=== PATIENT | male | born 1955 | race Caucasian/White ===

== ENCOUNTER 2017-05-20 21:16 | Observation (INO) ==
--- NOTE | 2017-05-20 21:32 | Emergency Department Note ---
Disposition Clinical Impression: SVT (supraventricular tachycardia), Acute electrocardiogram changes Disposition: Admitted As Inpatient Condition: Fair Referrals: Bhavana Rodriguez CNP [Primary Care Provider] - Forms: ED Satisfaction Letter Time of Disposition: 22:17 Arrhythmia/Palpitations HPI - General Chief Complaint: ED Arrhythmia/Palpitations Stated Complaint: states high heart rate Time Seen by Provider: 05/20/17 21:21 Source: patient Limitations: no limitations Nursing Notes Reviewed: Yes Vital Signs Reviewed: Yes - History of Present Illness HPI Narrative: 61-year-old who comes in with a rapid heartbeat. Patient states he has a history of SVT and has had this similar episodes about 10 previous times. Patient seen here last week he went for an ablation but they could not advance to the atrium due to its shape. He was started on Rythmol and today developed rapid heartbeat. 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 Duration: constant Severity: moderate Context: occurred during rest Arrhythmia History: SVT Associated symptoms: Reports: other (General weakness) Treatments prior to arrival: vagal maneuvers - Related Data Home Medications Medication Instructions Recorded Confirmed Baclofen 20 mg PO BID 05/08/16 05/10/17 Celecoxib [Celebrex] 200 mg PO BID 05/08/16 05/10/17 Furosemide [Lasix] 20 mg PO DAILY 05/08/16 05/10/17 Metoprolol [Lopressor] 50 mg PO BID 05/08/16 05/10/17 Potassium Chloride [Klor-Con 10 meq PO DAILY 05/08/16 05/10/17 Sprinkle] Pravastatin Sodium [Pravachol] 40 mg PO HS 05/08/16 05/10/17 Sertraline [Zoloft] 50 mg PO BID 05/08/16 05/10/17 Solifenacin Succinate [Vesicare] 5 mg PO DAILY 05/08/16 05/10/17 Tamsulosin [Flomax] 0.4 mg PO DAILY 05/08/16 05/10/17 traMADol [Ultram] 50 - 100 mg PO TID PRN 05/08/16 05/10/17 Previous Rx's Medication Instructions Recorded Propafenone [Rhythmol] 150 mg PO TID #90 tablet 05/13/17 Allergies Allergy/AdvReac Type Severity Reaction Status Date / Time No Known Allergies Allergy Verified 05/10/17 15:24 All systems ED: reviewed and negative except as stated. Constitutional: Denies: fever, chills, weakness, weight change Eyes: Denies: eye pain, eye discharge, vision change ENT ED: Denies: ear pain, throat pain, dental pain, hearing loss, epistaxis, congestion, dysphagia Cardiovascular: Reports: palpitations. Denies: chest pain, dyspnea on exertion , edema, syncope Respiratory: Denies: cough, dyspnea, wheezes, hemoptysis, stridor Gastrointestinal: Denies: abdominal pain, nausea, vomiting, diarrhea, constipation, hematemesis, melena, hematochezia Genitourinary: Denies: urgency, dysuria, frequency, hematuria Musculoskeletal: Denies: back pain, neck pain, arthralgia, myalgia Integumentary: Denies: rash, abrasion, lesions Neurological: Denies: headache, weakness, numbness, paresthesias, confusion, abnormal gait, vertigo Psychiatric: Denies: anxiety, depression, suicidal thoughts, homicidal thoughts , auditory hallucinations, visual hallucinations Endocrine: Denies: fatigue Hematological/Lymphatic: Denies: easy bleeding, easy bruising Allergic/Immunologic: Denies: facial swelling, urticaria Past Medical History - Past Medical History Medical history: Reports: hyperlipidemia, hypertension, SVT, other Surgical history: Reports: orthopedic, other (right shoulder replacement), other Psychiatric history: Reports: depression - Social History Smoking Status: Former smoker Smokeless Tobacco Status: No Alcohol use: Reports: none Drug use: Reports: none Physical Exam - General Limitations: no limitations General appearance: alert, in no apparent distress, appears intoxicated - Head Head exam: atraumatic, normocephalic, normal inspection - Eye Eye exam: Present: normal appearance, PERRL, EOMI - ENT ENT exam: normal exam, normal oropharynx, mucous membranes moist - Neck Neck exam: Present: normal inspection, full ROM, trachea midline - Chest Chest inspection: Present: normal inspection, symmetric chest wall rise - Respiratory Respiratory exam: Present: normal lung sounds bilaterally - Cardiovascular Cardiovascular exam: Present: normal rhythm, tachycardia - Abdominal Exam Abdominal exam: Present: soft, Non-Tender. Absent: tenderness, distention, guarding, rebound, rigidity - Extremities Exam Extremities exam: Present: normal inspection, full ROM. Absent: tenderness, pedal edema - Expanded Lower Extremity Exam Gait: observed and normal - Back Exam Back exam: Present: normal inspection, full ROM. Absent: tenderness - Neurological Exam Neurological exam: Present: alert, oriented X3 - Psychiatric Psychiatric exam: Present: normal affect, normal mood - Skin Skin exam: Present: warm, dry, intact, normal color Course - Reevaluation(s) Reevaluation #1: Patient was given 6 mg of Identicard IV with conversion to normal sinus rhythm. Rate of about 75. Repeat EKG does show T-wave inversion V2 V3 V4 V5 and V6. Patient will be admitted for further evaluation and treatment. Time: 22:16 - Consultations Consultation #1: Discussed with Dr. Davey, admit. Time: 22:22 Vital Signs Temperature 97.7 F 05/20/17 21:16 Pulse Rate 135 05/20/17 21:16 Respiratory Rate 20 05/20/17 21:16 Blood Pressure 91/71 05/20/17 21:16 O2 Sat by Pulse Oximetry 94 05/20/17 21:16 Temperature 97.7 F 05/20/17 21:16 Pulse Rate 75 05/20/17 22:10 Respiratory Rate 20 05/20/17 22:10 Blood Pressure 103/68 05/20/17 22:10 O2 Sat by Pulse Oximetry 96 05/20/17 22:10 Oxygen Delivery Oxygen Delivery Nasal Cannula Arrhythmia/Palpitations - Lab Data Lab results reviewed: Yes I reviewed the patient's lab results. Result diagrams: 05/20/17 22:02 Lab Results 05/20/17 Range/Units 22:02 WBC 13.0 H (4.3-11.1) K/mcL RBC 5.06 (4.19-5.50) M/mcL Hgb 14.8 (12.9-16.9) g/dL Hct 44.8 (37.5-50.1) % MCV 88.5 (83.0-100.0) fL MCH 29.2 (28.0-33.3) pg MCHC 33.0 (31.6-35.5) g/dL RDW 13.2 (11.5-14.5) % Plt Count 283 (140-400) K/mcL MPV 9.6 (9.4-12.4) fL Immature Gran % 0.3 (0-4) % Seg Neutrophils % 64.2 % Lymphocytes % 26.4 % Monocytes % 6.7 % Eosinophils % 1.9 % Basophils % 0.5 % Neutrophils # 8.4 (1.6-8.9) K/mcL Lymphocytes # 3.4 (0.6-4.6) K/mcL Monocytes # 0.9 (0.0-1.3) K/mcL Eosinophils # 0.3 (0.0-0.6) K/mcL Basophils # 0.1 (0.0-0.2) K/mcL - Radiology Data Radiology results reviewed: Yes I reviewed the patient's radiology results. - EKG Data EKG attestation: Yes I reviewed and interpreted this EKG. Rhythm: SVT (Rate of 132) Interpretation: other (SVT)
[2017-05-20] MEDS ORDERED: *HR* Adenosine 6 MG/2 ML VIAL IVP ONE (21:34)
[2017-05-20 22:09] LABS: Basophils % 0.5 %; Eosinophils % 1.9 %; Hematocrit 44.8 % (37.5-50.1); Hemoglobin 14.8 g/dL (12.9-16.9); Immature Granulocytes % 0.3 % (0-4); Lymphocytes % 26.4 %; Mean Corpuscular Hemoglobin 29.2 pg (28.0-33.3); Mean Corpuscular Volume 88.5 fL (83.0-100.0); Mean Platelet Volume 9.6 fL (9.4-12.4); Monocytes % 6.7 %; Platelet Count 283 K/mcL (140-400); Red Blood Count 5.06 M/mcL (4.19-5.50); Red Cell Distribution Width 13.2 % (11.5-14.5); Segmented Neutrophils % 64.2 %
[2017-05-20 22:10] LABS: Basophils # 0.1 K/mcL (0.0-0.2); Eosinophils # 0.3 K/mcL (0.0-0.6); Lymphocytes # 3.4 K/mcL (0.6-4.6); Monocytes # 0.9 K/mcL (0.0-1.3); Neutrophils # 8.4 K/mcL (1.6-8.9)
[2017-05-20 22:17] LABS: INR 1.1
[2017-05-20 22:19] LABS: Activated Partial Thrombo Time 28.6 Seconds (26.0-36.0)
[2017-05-20 22:26] LABS: BUN/Creatinine Ratio 16 (6-26); Blood Urea Nitrogen 15 mg/dL (8-26); Calcium 9.4 mg/dL (8.6-10.8); Carbon Dioxide 22 mEq/L (19-29); Chloride 105 mEq/L (98-109); Glucose 113 mg/dL (70-99); Osmolality,Calculated 286 (280-300); Potassium 3.9 mEq/L (3.5-4.5); Sodium 137 mEq/L (136-145); eGFR For African Americans > 60 (> 60); eGFR For Non-African Americans > 60 (> 60)
[2017-05-20 22:41] LABS: Magnesium 2.1 mg/dL (1.6-2.6)
[2017-05-20 23:06] LABS: Thyroid Stimulating Hormone 2.363 mcIU/mL (0.350-4.840)
[2017-05-21] MEDS ORDERED: traMADol 50 MG TABLET PO ONE (00:58)
[2017-05-21] MEDS ORDERED: Celecoxib 200 MG CAPSULE PO ONE (00:58)
[2017-05-21] MEDS ORDERED: Baclofen 10 MG TABLET PO ONE (00:59)
[2017-05-21] MEDS ORDERED: Naloxone 0.4 MG/ML INJ IVP PRN (03:53)
[2017-05-21] MEDS ORDERED: Acetaminophen 325 MG TABLET PO PRN (03:53)
[2017-05-21] MEDS ORDERED: *HR* Morphine 2 MG/ML SYRINGE IVP PRN (03:53)
[2017-05-21] MEDS ORDERED: Furosemide 20 MG TABLET PO PRN (03:56)
--- NOTE | 2017-05-21 04:02 | Internal Med History&Physical ---
Date of Encounter: 05/21/17 Time of Encounter: 03:15 Assessment and Plan (1) Supraventricular tachycardia Current visit: Yes Status: Acute 1. S/P cardioversion with Adenosine in ER. 2. Continue home meds and Rhythmol as prescribed. 3. Cycle tropopins and EKG's. 4. Patient had ECHO last month, no need to repeat unless indicated. 5. Consult cardiology for guidance. 6. Monitor and correct electrolytes as necessary. (2) HTN (hypertension) Current visit: No Status: Chronic 1. Continue home meds as appropriate. 2. Monitor BP and adjust as necessary. Qualifiers: Hypertension type: essential hypertension Qualified Code(s): I10 - Essential (primary) hypertension (3) DVT prophylaxis Current visit: No Status: Acute 1. Heparin SQ. Internal Medicine - H&P: HPI Chief complaint: palpitations; racing heartbeat Admitted From: Emergency Dept Plans for Post Hospital Care: Home History of present illness: Mr. Monsivais is a 61 year old male who presents to the ER tonight with complaints of palpitations and racing heartbeat. He was found to have evidence of SVT in the ER and was given a dose of adenosine which returned him back to normal sinus rhythm. EKG did show some flipped T waves and ST depression anterolaterally on his precordium. He was therefore admitted to hospitalist service. Upon my assessment of the patient, he is sleeping but easily arousable. He denies any chest pain. He has no shortness of breath. Since the Adenosine, he states he feels back to baseline. Prior to his presentation in the ER, he denies any chest pain or shortness of breath. His only complaint was palpitations and racing heartbeat. Patient states he has a history of abnormal heart rhythm and was started on Rythmol last week. He does not take any blood thinners. He denies any history of atrial fibrillation. Past Med Surg Social Fam HX - Past Medical History Attestation: Yes The following information was validated with the patient. Source: patient, old records reviewed Medical history: hyperlipidemia, hypertension, SVT, other Psychiatric history: depression - Past Surgical History Surgical History: orthopedic, other, other - Social History Smoking Status: Former smoker Smokeless Tobacco Status: No Alcohol use: none Drug use: none Current living situation: Home, With Family Activity Level: Independent ambulation - Family History Mother Hx Family Cardiac Disorders: Yes (heart stents) Hx Family Cancer: Yes (breast cancer) Father Hx Family Cardiac Disorders: Yes Brother Hx Family Cardiac Disorders: Yes Internal Medicine - H&P: Meds Baclofen 20 mg PO BID 05/08/16 [History] Celecoxib [Celebrex] 200 mg PO BID 05/08/16 [History] Furosemide [Lasix] 20 mg PO DAILY PRN 05/08/16 [History] Metoprolol [Lopressor] 50 mg PO BID 05/08/16 [History] Potassium Chloride [Klor-Con Sprinkle] 10 meq PO DAILY PRN 05/08/16 [History] Pravastatin Sodium [Pravachol] 40 mg PO HS 05/08/16 [History] Sertraline [Zoloft] 50 mg PO BID 05/08/16 [History] Solifenacin Succinate [Vesicare] 5 mg PO DAILY 05/08/16 [History] Tamsulosin [Flomax] 0.4 mg PO DAILY 05/08/16 [History] traMADol [Ultram] 50 - 100 mg PO TID PRN 05/08/16 [History] Propafenone [Rhythmol] 150 mg PO TID #90 tablet 05/13/17 [Rx] 3 Allergy/AdvReac Type Severity Reaction Status Date / Time No Known Allergies Allergy Verified 05/10/17 15:24 - Constitutional Constitutional: no chills, no fever(s), no night sweats - EENT Eyes: no blurry vision, no change in vision Ears: no ear pain, no tinnitus Nose, mouth and throat: no nasal congestion, no sinus pressure, no sore throat - Cardiovascular Cardiovascular ROS IM: irregular heart rhythm, palpitations, no chest pain, no diaphoresis, no dyspnea, no dyspnea on exertion, no edema, no paroxysmal nocturnal dyspnea, no syncope - Respiratory Respiratory: no cough, no dyspnea, no hemoptysis, no chest congestion - Gastrointestinal Gastrointestinal: no abdominal pain, no diarrhea, no hematemesis, no hematochezia, no melena, no nausea, no vomiting - Genitourinary Genitourinary ROS male: no dysuria, no flank pain, no hematuria - Musculoskeletal Musculoskeletal ROS IM: arthralgias, back pain - Integumentary Integumentary IM: no rash, no jaundice - Neurological Neurological ROS: no dizziness, no focal weakness, no frequent falls - Psychiatric Psychiatric: no anxiety, no depression - Endocrine Endocrine IM: no polydipsia, no polyuria - Hematologic/Lymphatic Hematologic/Lymphatic: no easy bruising, no lymphadenopathy - Allergic/Immunologic Allergic/Immunologic: no wheezing, no GI upset with certain foods - Constitutional Vitals: Temp Pulse Resp BP Pulse Ox 98 F 68 20 102/72 97 05/21/17 00:09 05/21/17 00:09 05/21/17 00:09 05/21/17 00:09 05/21/17 00:09 General appearance: Present: cooperative, A&O X 3, pleasant, no acute distress, obese - Head Head exam: Present: atraumatic, normal inspection - Expanded Head Exam Head exam expanded: Absent: abrasion, contusion - Eye Eye exam: Present: EOMI, PERRL. Absent: scleral icterus Pupils: Present: normal accommodation - ENT ENT exam: Present: mucous membranes dry, normal exam - Neck Neck exam general surgery: Present: full ROM, supple, trachea midline. Absent: lymphadenopathy, tenderness - Expanded Neck Exam Neck exam: Absent: carotid bruit - Respiratory Respiratory exam: Present: CTAB. Absent: accessory muscle use, chest wall tenderness, rales, respiratory distress, rhonchi, wheezes - Cardiovascular Cardiovascular exam: Present: RRR, +S1, +S2. Absent: diastolic murmur, JVD, systolic murmur - GI/Abdominal GI/Abdominal exam: Present: normal bowel sounds, soft. Absent: guarding, hepatomegaly, mass, rebound, splenomegaly, tenderness - Extremities Exam Extremities exam: Present: full ROM, warm, radial pulses palpable and symmetrical. Absent: calf tenderness, joint swelling, pedal edema, tenderness - Back Exam Back exam: Absent: CVA tenderness (L), CVA tenderness (R) - Neurological Exam Neurological exam: Present: alert, oriented X3, no focal deficits, strengths equal and symetr throughout - Psychiatric Psychiatric exam: Present: normal affect, normal mood - Skin Skin exam: Present: dry, warm. Absent: rash Internal Med - H&P Results - Labs CBC & Chem 7: 05/20/17 22:02 05/20/17 22:02 - EKG Data -: EKG Interpreted by Myself - EKG Data Prior EKG available for review: no EKG comments: 05/21/17 04:05 narrow complex regular tachycardia consistent with SVT; repeat EKG shows NSR with anterolateral ST-T depression and T wave inversion - Diagnostic Studies Chest x-ray Status: image reviewed by me (negative)
[2017-05-21 05:20] LABS: Basophils # 0.1 K/mcL (0.0-0.2); Basophils % 0.4 %; Eosinophils # 0.3 K/mcL (0.0-0.6); Eosinophils % 2.4 %; Hematocrit 41.2 % (37.5-50.1); Hemoglobin 13.8 g/dL (12.9-16.9); Immature Granulocytes % 0.3 % (0-4); Lymphocytes # 2.5 K/mcL (0.6-4.6); Lymphocytes % 21.3 %; Mean Corpuscular HGB Conc 33.5 g/dL (31.6-35.5); Mean Corpuscular Hemoglobin 29.6 pg (28.0-33.3); Mean Corpuscular Volume 88.2 fL (83.0-100.0); Mean Platelet Volume 9.9 fL (9.4-12.4); Monocytes # 0.9 K/mcL (0.0-1.3); Monocytes % 7.4 %; Neutrophils # 7.8 K/mcL (1.6-8.9); Platelet Count 206 K/mcL (140-400); Red Blood Count 4.67 M/mcL (4.19-5.50); Red Cell Distribution Width 13.2 % (11.5-14.5); Segmented Neutrophils % 68.2 %
[2017-05-21 05:30] LABS: Alanine Aminotransferase 18 Units/L (0-55); Albumin 3.3 g/dL (3.5-5.0); Albumin/Globulin Ratio 1.1 (1.1-2.2); Alkaline Phosphatase 97 Units/L (38-126); Aspartate Amino Transferase 14 Units/L (5-34); BUN/Creatinine Ratio 17 (6-26); Bilirubin,Total 0.7 mg/dL (0.2-1.2); Blood Urea Nitrogen 16 mg/dL (8-26); Calcium 8.9 mg/dL (8.6-10.8); Carbon Dioxide 25 mEq/L (19-29); Chloride 106 mEq/L (98-109); Chol/HDL Ratio 4.2 (0-4.9); Cholesterol 130 mg/dL (< 200); Globulin 3.1 g/dL (2.4-3.5); Glucose 93 mg/dL (70-99); HDL Cholesterol 31 mg/dL (40-59); LDL Cholesterol,Calculated 83 mg/dL (0-99); Magnesium 2.1 mg/dL (1.6-2.6); Osmolality,Calculated 289 (280-300); Potassium 3.7 mEq/L (3.5-4.5); Sodium 139 mEq/L (136-145); Total Protein 6.4 g/dL (6.0-8.3); Triglycerides 80 mg/dL (< 150); eGFR For African Americans > 60 (> 60); eGFR For Non-African Americans > 60 (> 60)
[2017-05-21] MEDS: *HR* Heparin 5,000 UNIT/ML VIAL SQ SCH ×3 (05:46→21:50)
[2017-05-21] MEDS: Baclofen 10 MG TABLET PO SCH ×2 (08:34→19:47)
--- NOTE | 2017-05-21 09:26 | Electrophysiology Consult Note ---
<Ferdinand Doe R - Last Filed: 05/21/17 09:30> Date of Encounter: 05/21/17 Time of Encounter: 09:24 Assessment and Plan (1) Supraventricular tachycardia Status: Acute Known hx of SVT--unsuccessful ablation in the past due to not being able to place catheters due to unusual anatomy. Presented to ED in SVT--Converted to sinus rhythm in the ED with Adenosine. Currently on Lopressor 50mg BID and Rythmol 150mg TID. Pt denies any missed Rythmol doses. Rythmol was started on 05/11/17. BMP and electrolytes stable. Echo LVEF 60-65%, moderate LVDD without any wall motion abnormalities, mild MR. Discussed with Dr. César Merino. Increase Rythmol to 225mg TID. Will need daily EKGs to monitor QRS. Baseline EKG 05/20/17 QRS 90ms. Pt also now interested in being evaluated at a tertiary facility to discuss ablation. Will coordinate as outpt. Pt needs monitored for 5 doses of increased Rythmol dosing. Continue to follow. I will discuss all the above with Dr. César Merino and make changes as necessary. (2) Elevated troponin Status: Acute Troponins 0.01, 0.05. Second troponin borderline in setting of SVT, nondiagnostic for ACS. Pt denies chest pain. Inferolateral EKG changes noted. Recommend stress test while inpt. No recent ischemic eval. (3) Acute electrocardiogram changes Status: Acute Inferolateral EKG changes worse from baseline, concerning for ischemia. Pt denies chest pain. No hx of CAD and no recent ischemic eval. Stress test while inpt. Discussion w patient/family: The assessment and plan as outlined above was discussed with the patient and/or family members who expressed understanding and agreement. All questions were answered. Thank you for involving us in the care of your patient. Please call with any questions. I will discuss all the above with Dr. César Merino and make changes as necessary. History of Present Illness Consult date: 05/21/17 Requesting physician: Juwan Davey Consult reason: SVT, Rythmol Chief complaint: fatigue History of present illness: Mr. Monsivais is a 61 year old male with a past medical history of multiple sclerosis and recurrent SVT who presented to the [facility] ED yesterday with a chief complaint of generalized weakness and palpitations. Due to his MS, patient has peripheral edema in his lower extremities and is wheelchair bound except for minimal stand to pivot or short walker distances. Patient reports recurrent episodes of SVT roughly 8-9 times in the last four years and has been on Lopressor for about 2 years. Ablation therapy was unsuccessful last year due to not being able to complete catheters due to unusual anatomy. Pt was started on Rythmol 05/11/17, denies missing doses. He denies any chest pain, diaphoresis, emesis or shortness of breath. On arrival, EKG showed HR 130s with EKG demonstrating SVT. Adenosine administered with return to sinus rhythm. EP consulted for further recommendations. Also, EKG shows inferolateral changes concerning for ischemia. No recent ischemic eval. Echo 04/2017 EF 60-65%, moderate LVDD, mild MR. Past Med Surg Social Fam HX - Past Medical History Medical history: hyperlipidemia, hypertension, SVT, other Psychiatric history: depression - Past Surgical History Surgical History: orthopedic, other, other - Social History Smoking Status: Former smoker Smokeless Tobacco Status: No Alcohol use: none Drug use: none - Family History Mother Hx Family Cardiac Disorders: Yes (heart stents) Hx Family Cancer: Yes (breast cancer) Father Hx Family Cardiac Disorders: Yes Brother Hx Family Cardiac Disorders: Yes Medications and Allergies Baclofen 20 mg PO BID 05/08/16 [History] Celecoxib [Celebrex] 200 mg PO BID 05/08/16 [History] Furosemide [Lasix] 20 mg PO DAILY PRN 05/08/16 [History] Metoprolol [Lopressor] 50 mg PO BID 05/08/16 [History] Potassium Chloride [Klor-Con Sprinkle] 10 meq PO DAILY PRN 05/08/16 [History] Pravastatin Sodium [Pravachol] 40 mg PO HS 05/08/16 [History] Sertraline [Zoloft] 50 mg PO BID 05/08/16 [History] Solifenacin Succinate [Vesicare] 5 mg PO DAILY 05/08/16 [History] Tamsulosin [Flomax] 0.4 mg PO DAILY 05/08/16 [History] traMADol [Ultram] 50 - 100 mg PO TID PRN 05/08/16 [History] Propafenone [Rhythmol] 225 mg PO TID #90 tablet 05/22/17 [Rx] 3 Allergy/AdvReac Type Severity Reaction Status Date / Time No Known Allergies Allergy Verified 05/10/17 15:24 All Systems Review: A 10-system review of systems was performed and is negative for pertinent findings except as documented above in the HPI. - Constitutional Constitutional: weakness - Cardiovascular Cardiovascular: as per HPI, palpitations Physical Examination Vital Signs, Last 4 Hours Temp Pulse Resp BP Pulse Ox 05/21/17 07:54 97.4 F L 68 13 111/65 97 05/21/17 06:37 98.2 F 64 17 89/72 97 05/21/17 05:27 98.8 F 62 18 92/60 98 Vital Signs Temp Pulse Resp BP Pulse Ox 05/21/17 07:54 97.4 F L 68 13 111/65 97 05/21/17 06:37 98.2 F 64 17 89/72 97 05/21/17 05:27 98.8 F 62 18 92/60 98 05/21/17 00:09 98 F 68 20 102/72 97 05/20/17 22:53 97.8 F 20 101/59 05/20/17 22:29 73 20 105/75 96 05/20/17 22:10 75 20 103/68 96 05/20/17 22:05 77 20 106/71 95 05/20/17 21:58 96 05/20/17 21:16 97.7 F 135 20 91/71 94 Intake and Output 05/20/17 05/21/17 05/21/17 23:59 07:59 15:59 Intake Total 120 / 120 Output Total 650 / 650 Balance -530 / -530 Intake: Oral 120 / 120 Output: Urine 650 / 650 Other: # Voids 0 Weight 136.078 kg 137 kg Patient Weight 05/21/17 23:59 Weight 137 kg General: Conversant, No Apparent Distress HEENT: Atraumatic, Normocephaly, Mucus Membranes Moist Neck: No JVD, Normal carotid pulses Cardiac: Reg Rate and Rhythm, Normal S1 and S2, No Murmur Lungs: Normal Breath Sounds, No Wheeze, Rales, Rhonchi Neuro: Alert and responsive, No focal deficits noted Abdomen: Soft, Non-Tender Skin: No rashes noted on visualized skin Musculoskeletal: No Chest Wall Tenderness Extremities: Other (LE edema noted) Results 05/21/17 04:58 05/21/17 04:58 Lab Results 05/21/17 05/21/17 05/21/17 04:15 04:58 04:58 WBC 11.5 H Hgb 13.8 Hct 41.2 Plt Count 206 Sodium 139 Potassium 3.7 Chloride 106 Carbon Dioxide 25 BUN 16 Creatinine 0.95 Glucose 93 Calcium 8.9 Magnesium 2.1 Total Bilirubin 0.7 AST 14 ALT 18 Alkaline Phosphatase 97 Troponin I 0.05 H* Short CBC 05/21/17 05/20/17 Range/Units 04:58 22:02 WBC 11.5 H 13.0 H (4.3-11.1) K/mcL Hgb 13.8 14.8 (12.9-16.9) g/dL Hct 41.2 44.8 (37.5-50.1) % Plt Count 206 283 (140-400) K/mcL Neutrophils # 7.8 8.4 (1.6-8.9) K/mcL BMP 05/21/17 05/20/17 Range/Units 04:58 22:02 Sodium 139 137 (136-145) mEq/L Potassium 3.7 3.9 (3.5-4.5) mEq/L Chloride 106 105 (98-109) mEq/L Carbon Dioxide 25 22 (19-29) mEq/L BUN 16 15 (8-26) mg/dL Creatinine 0.95 0.95 (0.72-1.25) mg/dL Glucose 93 113 H (70-99) mg/dL Calcium 8.9 9.4 (8.6-10.8) mg/dL Cardiac Enzymes 05/21/17 05/20/17 Range/Units 04:15 22:02 Troponin I 0.05 H* 0.01 (0-0.03) ng/mL Liver Function 05/21/17 Range/Units 04:58 Total Bilirubin 0.7 (0.2-1.2) mg/dL AST 14 (5-34) Units/L ALT 18 (0-55) Units/L Alkaline Phosphatase 97 (38-126) Units/L Albumin 3.3 L (3.5-5.0) g/dL Impressions Chest X-Ray 05/20/17 21:21 IMPRESSION: Stable examination without acute focal process. D/ / 05/20/2017 22:39:36 Kelechi Colorado MD / judith Interpreting Provider: Kelechi Colorado MD Active Medications Acetaminophen (Tylenol) 650 mg PO Q6HR PRN PRN Reason: Mild Pain (1-3) Stop: 11/20/17 03:54 Baclofen (Lioresal) 20 mg PO BID [facility] Stop: 11/20/17 09:01 Last Admin: 05/21/17 08:34 Dose: 20 mg Docusate Sodium (Colace) 100 mg PO BID PRN PRN Reason: Constipation Stop: 11/20/17 03:54 Furosemide (Lasix) 20 mg PO DAILY PRN PRN Reason: Edema Stop: 11/20/17 03:57 Heparin Sodium (Porcine) (Heparin) 5,000 unit SQ Q8HCO [facility] Stop: 11/20/17 06:01 Last Admin: 05/21/17 05:46 Dose: 5,000 unit Metoprolol Tartrate (Lopressor) 50 mg PO BID [facility] Stop: 11/20/17 09:01 Last Admin: 05/21/17 08:34 Dose: 50 mg Morphine Sulfate (Morphine Sulfate) 2 mg IVP Q4HR PRN PRN Reason: Chest Pain Stop: 11/20/17 03:54 Naloxone HCl (Narcan) 0.4 mg IVP Q2MIN PRN PRN Reason: Opioid Reversal Stop: 11/20/17 03:54 Oxybutynin Chloride (Ditropan) 5 mg PO BID [facility] Stop: 11/20/17 09:01 Last Admin: 05/21/17 08:34 Dose: 5 mg Potassium Chloride (Potassium Chloride) 10 meq PO DAILY PRN PRN Reason: Edema Propafenone HCl (Rhythmol) 75 mg PO ONCE ONE Stop: 05/21/17 09:23 Propafenone HCl (Rhythmol) 225 mg PO TID [facility] Stop: 11/20/17 15:01 Simvastatin (Zocor) 20 mg PO HS [facility] Stop: 11/20/17 21:01 Tamsulosin HCl (Flomax) 0.4 mg PO HS [facility] PRN Reason: Protocol Stop: 11/20/17 21:01 - Imaging and Cardiology Echo: report reviewed - EKG Interpretation EKG results cardiology: personally reviewed (SVT, rate 130s, inferolateral changes), other (12 hr tele AVG HR 62, SR.) Consult Discharge Plan - Plan Instructions: Propafenone (By mouth), Supraventricular Tachycardia (DC), Supraventricular Tachycardia (GEN), Multiple Sclerosis (DC), Multiple Sclerosis (GEN), Pharmacologic Stress Testing (DC), Pharmacologic Stress Testing (GEN), Chronic Hypertension (DC), Pneumonia (DC) Additional Instructions: Take your medications as prescribed Continue Rythmol at 225mg three times daily Follow-up with your PCP Follow-up with your Transition Specialist - Referral to [facility] for possible ablation can be coordinated as an out-patient Return to the hospital if your symptoms return or worsen Referrals: Bhavana Rodriguez, [employer]INEER [Primary Care Provider] - Prescriptions: Propafenone [Rhythmol] 225 mg PO TID #90 tablet <César Merino - Last Filed: 05/25/17 15:21> Date of Encounter: 05/25/17 - Attending Attestation I have personally performed a face to face evaluation on this patient. I have reviewed and agree with the care plan. History and Exam by me shows: Admitted with recurrent SVT. Would titrate rythmol and consider attempt at ablation at outside facility. Assessment and Plan Discussion w patient/family: The assessment and plan as outlined above was discussed with the patient and/or family members who expressed understanding and agreement. All questions were answered. Thank you for involving us in the care of your patient. Please call with any questions. History of Present Illness History of present illness: Mr. Monsivais is a 61 year old male All Systems Review: A 10-system review of systems was performed and is negative for pertinent findings except as documented above in the HPI. Results 05/21/17 04:58 05/22/17 04:08
--- NOTE | 2017-05-21 09:45 | Internal Med Progress Note ---
<AsifJerrod Kelton - Last Filed: 05/21/17 10:20> Date of Encounter: 05/21/17 Time of Encounter: 08:07 - Assessment and plan (1) Supraventricular tachycardia Current Visit: Yes Status: Acute Assessment and plan: Prior history of SVT - unsuccessful ablation one year ago, started Rythmol about 1 week ago Converted to NSR after Adenosine in ED Echo 05/11: EF 60-65%, moderate LV diastolic dysfunction with no wall motion abnormalities Previous out-patient discussion of possibility of repeat ablation trial at [facility] if Rythmol unable to control HR EP consulted - increase Rythmol monitor for 5 doses and monitor EKGs daily Monitor electrolytes and replace as needed (2) Elevated troponin Current Visit: Yes Status: Acute Assessment and plan: Trop 0.01, 0.05 - denies chest pain EKG changes: inverted T-waves in V2-4 Cardiology recommending in-patient stress test (3) HTN (hypertension) Current Visit: No Status: Chronic Assessment and plan: Normotensive, continue meds Qualifiers: Hypertension type: essential hypertension Qualified Code(s): I10 - Essential (primary) hypertension (4) Multiple sclerosis Current Visit: No Status: Chronic Assessment and plan: Continue baclofen (5) DVT prophylaxis Current Visit: No Status: Acute Assessment and plan: SQ Heparin - Subjective Interval history: Pt doing well this AM with no complaints. Denies syncope, light-headedness, chest pain, dyspnea, orthopnea, N/V/D/C, dysuria, leg pain, or worsening LE edema. - Constitutional Vitals: Temp Pulse Resp BP Pulse Ox 97.4 F L 68 13 111/65 97 05/21/17 07:54 05/21/17 07:54 05/21/17 07:54 05/21/17 07:54 05/21/17 07:54 General appearance: Present: cooperative, A&O X 3, pleasant, no acute distress, obese - Head Head exam: Present: atraumatic, normocephalic - Eye Eye exam: Present: conjuntiva pink, sclera anicteric - Neck Neck exam general surgery: Present: supple, trachea midline. Absent: lymphadenopathy - Respiratory Respiratory exam: Present: CTAB. Absent: accessory muscle use, rales, rhonchi, wheezes - Cardiovascular Cardiovascular exam: Present: RRR, +S1, +S2. Absent: diastolic murmur, systolic murmur - GI/Abdominal GI/Abdominal exam: Present: normal bowel sounds, soft, no peritoneal signs. Absent: distended, tenderness - Extremities Exam Extremities exam: Present: pedal edema, warm, radial pulses palpable and symmetrical. Absent: calf tenderness, cyanotic - Neurological Exam Neurological exam: Present: CN II-XII intact, oriented X3, no focal deficits. Absent: facial droop, speech deficit - Skin Skin exam: Present: dry, intact Internal Medicine: Result - Labs CBC & Chem 7: 05/21/17 04:58 05/21/17 04:58 Labs: Short CBC 05/21/17 Range/Units 04:58 WBC 11.5 H (4.3-11.1) K/mcL Hgb 13.8 (12.9-16.9) g/dL Hct 41.2 (37.5-50.1) % Plt Count 206 (140-400) K/mcL Neutrophils # 7.8 (1.6-8.9) K/mcL BMP 05/21/17 04:58 Sodium 139 Potassium 3.7 Chloride 106 Carbon Dioxide 25 BUN 16 Creatinine 0.95 Glucose 93 Calcium 8.9 Cardiac Enzymes 05/21/17 Range/Units 04:15 Troponin I 0.05 H* (0-0.03) ng/mL Liver Function 05/21/17 Range/Units 04:58 Total Bilirubin 0.7 (0.2-1.2) mg/dL AST 14 (5-34) Units/L ALT 18 (0-55) Units/L Alkaline Phosphatase 97 (38-126) Units/L Albumin 3.3 L (3.5-5.0) g/dL - ABG Interpretation ABG results: PT/INR, D-dimer PT 12.0 Seconds (9.4-12.1) 05/20/17 22:02 Consult Discharge Plan - Plan Referrals: Bhavana Rodriguez, [employer] SEPARATION PHOTOGRAPHER [Primary Care Provider] - <Danis Lucio - Last Filed: 05/21/17 13:59> Date of Encounter: 05/21/17 - Constitutional Vitals: Temp Pulse Resp BP Pulse Ox 97.4 F L 68 13 111/65 97 05/21/17 07:54 05/21/17 07:54 05/21/17 07:54 05/21/17 07:54 05/21/17 07:54 Internal Medicine: Result - Labs CBC & Chem 7: 05/21/17 04:58 05/21/17 04:58 Labs: Short CBC 05/21/17 Range/Units 04:58 WBC 11.5 H (4.3-11.1) K/mcL Hgb 13.8 (12.9-16.9) g/dL Hct 41.2 (37.5-50.1) % Plt Count 206 (140-400) K/mcL Neutrophils # 7.8 (1.6-8.9) K/mcL BMP 05/21/17 04:58 Sodium 139 Potassium 3.7 Chloride 106 Carbon Dioxide 25 BUN 16 Creatinine 0.95 Glucose 93 Calcium 8.9 Cardiac Enzymes 05/21/17 05/21/17 Range/Units 04:15 09:49 Troponin I 0.05 H* 0.03 (0-0.03) ng/mL Liver Function 05/21/17 Range/Units 04:58 Total Bilirubin 0.7 (0.2-1.2) mg/dL AST 14 (5-34) Units/L ALT 18 (0-55) Units/L Alkaline Phosphatase 97 (38-126) Units/L Albumin 3.3 L (3.5-5.0) g/dL - ABG Interpretation ABG results: PT/INR, D-dimer PT 12.0 Seconds (9.4-12.1) 05/20/17 22:02 - Attending Attestation I examined this patient and my medical decision-making was reviewed with the Resident Physician on 05/21/17. I agree with the documented findings, disposition and treatment plan as described except to the extent set forth below. Pt was admitted earlier this AM for acute SVT. He converted with adenosine. He had new EKG changes noted and is to have stress test. Rhythmol dose increased. Pt comfortable at this time. Agree with impression and plan as documented above.
[2017-05-22 03:38] LABS: Bilirubin,Urine Small (Negative); Blood,Urine Negative (Negative); Clarity,Urine Clear (Clear); Glucose,Urine (UA) Normal (Normal); Ketones,Urine Negative (Negative); Leukocyte Esterase,Urine Negative (Negative); Nitrite,Urine Negative (Negative); Protein,Urine Negative (Neg-Trace); Specific Gravity,Urine 1.023 (1.010-1.025); Urobilinogen,Urine Normal (Normal)
[2017-05-22 03:40] LABS: Color,Urine Yellow (Yellow)
[2017-05-22] MEDS: *HR* Heparin 5,000 UNIT/ML VIAL SQ SCH (04:57)
[2017-05-22 05:25] LABS: BUN/Creatinine Ratio 21 (6-26); Blood Urea Nitrogen 21 mg/dL (8-26); Calcium 8.9 mg/dL (8.6-10.8); Carbon Dioxide 27 mEq/L (19-29); Chloride 106 mEq/L (98-109); Glucose 93 mg/dL (70-99); Osmolality,Calculated 293 (280-300); Potassium 3.9 mEq/L (3.5-4.5); Sodium 140 mEq/L (136-145); eGFR For African Americans > 60 (> 60); eGFR For Non-African Americans > 60 (> 60)
[2017-05-22] MEDS ORDERED: Regadenoson 0.4 MG/5 ML SYRINGE IVP ONE (06:13)
[2017-05-22 07:09] VITALS: BP 116/76
[2017-05-22] MEDS: Baclofen 10 MG TABLET PO SCH (09:39)
--- NOTE | 2017-05-22 11:08 | Electrophysiology ProgressNote ---
Date of Encounter: 05/22/17 Time of Encounter: 11:04 Assessment and Plan (1) Supraventricular tachycardia Current Visit: Yes Status: Acute Known hx of SVT--unsuccessful ablation in the past due to not being able to place catheters due to unusual anatomy. Presented to ED in SVT--Converted to sinus rhythm in the ED with Adenosine. Currently on Lopressor 50mg BID and Rythmol was increased to 225mg TID. Echo LVEF 60-65%, moderate LVDD without any wall motion abnormalities, mild MR. Discussed with Dr. César Merino. Increased Rythmol to 225mg TID. Baseline EKG 05/20/17 QRS 90ms. EKG this AM 05/22/17 QRS 101ms. Pt has received 3 doses of Rythmol, 5th dose at [address] Will discuss with Dr[address] César Merino, but anticipate pt will be able to be discharged home 2 hours after 5th increased dose. Pt also now interested in being evaluated at a tertiary facility to discuss ablation. Will coordinate referral to [facility] as outpt. (2) Elevated troponin Current Visit: Yes Status: Acute Troponins 0.01, 0.05, 0.03, 0.02. Second troponin borderline in setting of SVT, nondiagnostic for ACS. Pt denies chest pain. Inferolateral EKG changes noted. Stress test today negative for ischemia or infarct. (3) Acute electrocardiogram changes Current Visit: Yes Status: Acute Inferolateral EKG changes worse from baseline, concerning for ischemia. Pt denies chest pain. No hx of CAD. Stress test completed today. Perfusion imaging negative for ischemia or infarct. Discussion w patient/family: The assessment and plan as outlined above was discussed with the patient and/or family members who expressed understanding and agreement. All questions were answered. Thank you for involving us in the care of your patient. Please call with any questions. I will discuss all the above with Dr. César Merino and make changes as necessary. Subjective Principal diagnosis: SVT Interval history: No recurrent SVT overnight. Pt has received 3 doses of increased Rythmol. 5th dose will be 3PM today. Pt denies chest pain or dyspnea, reports fatigue. Stress test resulted--negative for ischemia or infarct. EKG shows stable QRS, 101ms this AM. Objective Vital Signs Temp Pulse Resp BP Pulse Ox 05/22/17 07:00 64 18 116/76 96 05/22/17 05:00 98.2 F 62 17 119/70 94 05/21/17 18:35 64 18 116/68 96 05/21/17 15:00 98.1 F 54 17 116/68 98 Intake and Output 05/21/17 05/22/17 05/22/17 23:59 07:59 15:59 Intake Total 0 / 0 0 / 0 Output Total 0 / 0 0 / 0 Balance 0 / 0 0 / 0 Intake: Oral 0 / 0 0 / 0 Output: Urine 0 / 0 0 / 0 Other: Meal Dinner Percent of Meal Consumed 80% Blood Glucose* 97 General: Conversant, No Apparent Distress HEENT: Atraumatic, Normocephaly, Mucus Membranes Moist Neck: No JVD, Normal carotid pulses Cardiac: Reg Rate and Rhythm, Normal S1 and S2, No Murmur Lungs: Normal Breath Sounds, No Wheeze, Rales, Rhonchi Neuro: Alert and responsive, No focal deficits noted Abdomen: Soft, Non-Tender Skin: No rashes noted on visualized skin Musculoskeletal: No Chest Wall Tenderness Extremities: Other (mild LE edema) Results 05/21/17 04:58 05/22/17 04:08 Lab Results 05/21/17 05/22/17 16:11 04:08 Sodium 140 Potassium 3.9 Chloride 106 Carbon Dioxide 27 BUN 21 Creatinine 1.02 Glucose 93 Calcium 8.9 Troponin I 0.02 BMP 05/22/17 Range/Units 04:08 Sodium 140 (136-145) mEq/L Potassium 3.9 (3.5-4.5) mEq/L Chloride 106 (98-109) mEq/L Carbon Dioxide 27 (19-29) mEq/L BUN 21 (8-26) mg/dL Creatinine 1.02 (0.72-1.25) mg/dL Glucose 93 (70-99) mg/dL Calcium 8.9 (8.6-10.8) mg/dL Cardiac Enzymes 05/21/17 Range/Units 16:11 Troponin I 0.02 (0-0.03) ng/mL Urine 05/22/17 Range/Units 03:28 Urine Color Yellow (Yellow) Urine Clarity Clear (Clear) Urine pH 6.0 (5.0-8.0) pH Units Ur Specific [place] 1.023 (1.010-1.025) Urine Protein Negative (Neg-Trace) mg/dL Urine Glucose (UA) Normal (Normal) mg/dL Active Medications Acetaminophen (Tylenol) 650 mg PO Q6HR PRN PRN Reason: Mild Pain (1-3) Stop: 11/20/17 03:54 Baclofen (Lioresal) 20 mg PO BID [facility] Stop: 11/20/17 09:01 Last Admin: 05/22/17 09:39 Dose: 20 mg Docusate Sodium (Colace) 100 mg PO BID PRN PRN Reason: Constipation Stop: 11/20/17 03:54 Furosemide (Lasix) 20 mg PO DAILY PRN PRN Reason: Edema Stop: 11/20/17 03:57 Heparin Sodium (Porcine) (Heparin) 5,000 unit SQ Q8HCO [facility] Stop: 11/20/17 06:01 Last Admin: 05/22/17 04:57 Dose: 5,000 unit Metoprolol Tartrate (Lopressor) 50 mg PO BID [facility] Stop: 11/20/17 09:01 Last Admin: 05/22/17 09:39 Dose: 50 mg Morphine Sulfate (Morphine Sulfate) 2 mg IVP Q4HR PRN PRN Reason: Chest Pain Stop: 11/20/17 03:54 Naloxone HCl (Narcan) 0.4 mg IVP Q2MIN PRN PRN Reason: Opioid Reversal Stop: 11/20/17 03:54 Oxybutynin Chloride (Ditropan) 5 mg PO BID [facility] Stop: 11/20/17 09:01 Last Admin: 05/22/17 09:39 Dose: 5 mg Potassium Chloride (Potassium Chloride) 10 meq PO DAILY PRN PRN Reason: Edema Propafenone HCl (Rhythmol) 225 mg PO TID [facility] Stop: 11/20/17 15:01 Last Admin: 05/22/17 09:39 Dose: 225 mg Simvastatin (Zocor) 20 mg PO HS [facility] Stop: 11/20/17 21:01 Last Admin: 05/21/17 19:47 Dose: 20 mg Tamsulosin HCl (Flomax) 0.4 mg PO HS [facility] PRN Reason: Protocol Stop: 11/20/17 21:01 Last Admin: 05/21/17 19:47 Dose: 0.4 mg - Imaging and Cardiology Stress Test: report reviewed Echo: report reviewed - EKG Interpretation EKG results cardiology: personally reviewed (Sinus ashlee HR 59, QRS 101ms.), other (12 hr tele AVG HR 63, SR, no significant pauses or arrhythmias.) Consult Discharge Plan - Plan Referrals: Bhavana Rodriguez, ORDNANCE KEEPER [Primary Care Provider] -
--- NOTE | 2017-05-22 15:12 | Discharge Summary ---
Date of Encounter: 05/22/17 Time of Encounter: 15:07 - Discharge Diagnosis (1) Supraventricular tachycardia Priority: Primary Status: Acute (2) Elevated troponin Priority: Secondary Status: Acute (3) HTN (hypertension) Priority: Secondary Status: Chronic Qualifiers: Hypertension type: essential hypertension Qualified Code(s): I10 - Essential (primary) hypertension (4) Multiple sclerosis Priority: Secondary Status: Chronic (5) DVT prophylaxis Priority: Secondary Status: Acute - Discharge Medications Home Medications: Baclofen 20 mg PO BID 05/08/16 [History] Celecoxib [Celebrex] 200 mg PO BID 05/08/16 [History] Furosemide [Lasix] 20 mg PO DAILY PRN 05/08/16 [History] Metoprolol [Lopressor] 50 mg PO BID 05/08/16 [History] Potassium Chloride [Klor-Con Sprinkle] 10 meq PO DAILY PRN 05/08/16 [History] Pravastatin Sodium [Pravachol] 40 mg PO HS 05/08/16 [History] Sertraline [Zoloft] 50 mg PO BID 05/08/16 [History] Solifenacin Succinate [Vesicare] 5 mg PO DAILY 05/08/16 [History] Tamsulosin [Flomax] 0.4 mg PO DAILY 05/08/16 [History] traMADol [Ultram] 50 - 100 mg PO TID PRN 05/08/16 [History] Allergies/Adverse Reactions: 3 Allergy/AdvReac Type Severity Reaction Status Date / Time No Known Allergies Allergy Verified 05/10/17 15:24 Procedures/tests Complete & Pending: Procedures Performed prior 72 hours Category Date Time Status NM ara perf SPECT multi [NM] Routine Exams 05/21/17 10:01 Taken ECG 12 lead ECG [ECG] AM 0600 Y 05/21/17 06:00 Ordered EKG [ECG 12 lead ECG] [ECG] AM 0600 Y 05/22/17 06:00 Completed EKG [ECG 12 lead ECG] [ECG] AM 0600 Y 05/23/17 06:00 Ordered SP pharm nuclear stress Routine Y 05/22/17 07:00 Completed Date of admission: 05/20/17 22:45 Primary care physician: Bhavana Rodriguez CNP Consults: 05/21/17 03:53 Consult to Cardiology [CONS] Routine Comment: Consulting Provider: Cardiology [place] Reason for Consult: SVT Call Completed: No 05/21/17 10:22 Consult to Electrophysiology (EP) [CONS] Routine Consulting Provider: Electrophysiology [place] Reason for Consult: SVT Call Completed: Yes Discharging clinician: Jerrod Gold Anticipated date of discharge: 05/22/17 - Patient Status Condition: Fair - Discharge Instructions Instructions: Supraventricular Tachycardia (DC), Supraventricular Tachycardia ( GEN), Multiple Sclerosis (DC), Multiple Sclerosis (GEN), Pharmacologic Stress Testing (DC), Pharmacologic Stress Testing (GEN), Chronic Hypertension (DC), Pneumonia (DC) Follow Up With: Bhavana Rodriguez CNP [Primary Care Provider] - Hospital course: Mr. Monsivais is a 61 year old male - Time Spent with Patient Total time spent providing and/or coordinating discharge services: - Constitutional Vitals: Temp Pulse Resp BP Pulse Ox 98.2 F 64 18 116/76 96 05/22/17 05:00 05/22/17 07:00 05/22/17 07:00 05/22/17 07:00 05/22/17 07:00 General appearance: Present: cooperative, A&O X 3, pleasant, no acute distress, obese
--- NOTE | 2017-05-22 15:21 | Discharge Summary ---
<Jerrod Gold R - Last Filed: 05/22/17 15:18> Date of Encounter: 05/22/17 Time of Encounter: 15:18 - Discharge Diagnosis (1) Supraventricular tachycardia Priority: Primary Status: Acute (2) Elevated troponin Priority: Secondary Status: Acute (3) HTN (hypertension) Priority: Secondary Status: Chronic Qualifiers: Hypertension type: essential hypertension Qualified Code(s): I10 - Essential (primary) hypertension (4) Multiple sclerosis Priority: Secondary Status: Chronic (5) DVT prophylaxis Priority: Secondary Status: Acute - Discharge Medications Prescriptions: Propafenone [Rhythmol] 225 mg PO TID #90 tablet Home Medications: Baclofen 20 mg PO BID 05/08/16 [History] Celecoxib [Celebrex] 200 mg PO BID 05/08/16 [History] Furosemide [Lasix] 20 mg PO DAILY PRN 05/08/16 [History] Metoprolol [Lopressor] 50 mg PO BID 05/08/16 [History] Potassium Chloride [Klor-Con Sprinkle] 10 meq PO DAILY PRN 05/08/16 [History] Pravastatin Sodium [Pravachol] 40 mg PO HS 05/08/16 [History] Sertraline [Zoloft] 50 mg PO BID 05/08/16 [History] Solifenacin Succinate [Vesicare] 5 mg PO DAILY 05/08/16 [History] Tamsulosin [Flomax] 0.4 mg PO DAILY 05/08/16 [History] traMADol [Ultram] 50 - 100 mg PO TID PRN 05/08/16 [History] Propafenone [Rhythmol] 225 mg PO TID #90 tablet 05/22/17 [Rx] Allergies/Adverse Reactions: 3 Allergy/AdvReac Type Severity Reaction Status Date / Time No Known Allergies Allergy Verified 05/10/17 15:24 Procedures/tests Complete & Pending: Procedures Performed prior 72 hours Category Date Time Status NM ara perf SPECT multi [NM] Routine Exams 05/21/17 10:01 Taken ECG 12 lead ECG [ECG] AM 0600 Y 05/21/17 06:00 Ordered EKG [ECG 12 lead ECG] [ECG] AM 0600 Y 05/22/17 06:00 Completed EKG [ECG 12 lead ECG] [ECG] AM 0600 Y 05/23/17 06:00 Ordered SP pharm nuclear stress Routine Y 05/22/17 07:00 Completed Date of admission: 05/20/17 22:45 Primary care physician: Bhavana Rodriguez CNP Consults: 05/21/17 03:53 Consult to Cardiology [CONS] Routine Comment: Consulting Provider: Lian Bailon Reason for Consult: SVT Call Completed: No 05/21/17 10:22 Consult to Electrophysiology (EP) [CONS] Routine Consulting Provider: Electrophysiology [place] Reason for Consult: SVT Call Completed: Yes Discharging clinician: Jerrod Gold Anticipated date of discharge: 05/22/17 - Patient Status Disposition: Home, Self-Care Condition: Fair Functional capacity at discharge: uses cane/walker (and wheelchair) Overall status at discharge: patient is back to baseline - Discharge Instructions Instructions: Propafenone (By mouth), Supraventricular Tachycardia (DC), Supraventricular Tachycardia (GEN), Multiple Sclerosis (DC), Multiple Sclerosis (GEN), Pharmacologic Stress Testing (DC), Pharmacologic Stress Testing (GEN), Chronic Hypertension (DC), Pneumonia (DC) Follow Up With: Bhavana Rodriguez CNP [Primary Care Provider] - Additional Instructions: Take your medications as prescribed Continue Rythmol at 225mg three times daily Follow-up with your PCP Follow-up with your [facility] - Referral to [facility] for possible ablation can be coordinated as an out-patient Return to the hospital if your symptoms return or worsen - Diet and Activity Activity: resume usual activities as tolerated Diet: low fat, low cholesterol, low salt diet Interval History: Pt doing well with no complaints. Denies syncope, light-headedness, chest pain, dyspnea, N/V/D/C, dysuria, or leg pain/edema. Hospital course: Mr. Monsivais is a 61 year old male presenting with SVT. He was given adenosine in the ED which returned his HR back to normal sinus rhythm. EKG showed some inverted T waves and non-specific ST changes. Cardiology was consulted and increased the dose of Rythmol to 225 mg daily. He was monitored for 5 doses and EKG's remained stable. NM stress test showed no signs of ischemia or infarct. One year prior an ablation was unsuccessful for his SVT and an out-patient referral to [facility] will be coordinated for further discussion of ablation. He is hemodynamically stable and will be discharged home with follow-up with his PCP and [facility]. - Time Spent with Patient Total time spent providing and/or coordinating discharge services: Less than 30 minutes - Constitutional Vitals: Temp Pulse Resp BP Pulse Ox 98.2 F 64 18 116/76 96 05/22/17 05:00 05/22/17 07:00 05/22/17 07:00 05/22/17 07:00 05/22/17 07:00 General appearance: Present: cooperative, A&O X 3, pleasant, no acute distress, obese - Head Head exam: Present: atraumatic, normocephalic - Eye Eye exam: Present: conjuntiva pink, sclera anicteric - Neck Neck exam general surgery: Present: supple, trachea midline. Absent: lymphadenopathy - Respiratory Respiratory exam: Present: CTAB. Absent: accessory muscle use, rales, rhonchi, wheezes - Cardiovascular Cardiovascular exam: Present: RRR, +S1, +S2. Absent: diastolic murmur, systolic murmur - GI/Abdominal GI/Abdominal exam: Present: normal bowel sounds, soft, no peritoneal signs. Absent: distended, tenderness - Extremities Exam Extremities exam: Present: warm, radial pulses palpable and symmetrical. Absent : calf tenderness, cyanotic, pedal edema - Neurological Exam Neurological exam: Present: CN II-XII intact, oriented X3, no focal deficits. Absent: facial droop, speech deficit - Skin Skin exam: Present: dry, intact <Danis Lucio - Last Filed: 05/22/17 16:58> Date of Encounter: 05/22/17 - Discharge Diagnosis (1) Supraventricular tachycardia Status: Acute (2) HTN (hypertension) Status: Chronic Qualifiers: Hypertension type: essential hypertension Qualified Code(s): I10 - Essential (primary) hypertension (3) Hyperlipidemia Priority: Secondary Status: Chronic Qualifiers: Hyperlipidemia type: mixed hyperlipidemia Qualified Code(s): E78.2 - Mixed hyperlipidemia (4) Multiple sclerosis Status: Chronic Procedures/tests Complete & Pending: Procedures Performed prior 72 hours Category Date Time Status NM ara perf SPECT multi [NM] Routine Exams 05/21/17 10:01 Taken ECG 12 lead ECG [ECG] AM 0600 Y 05/21/17 06:00 Ordered EKG [ECG 12 lead ECG] [ECG] AM 0600 Y 05/22/17 06:00 Completed EKG [ECG 12 lead ECG] [ECG] AM 0600 Y 05/23/17 06:00 Ordered SP pharm nuclear stress Routine Y 05/22/17 07:00 Completed Date of admission: 05/20/17 22:45 Primary care physician: Bhavana Rodriguez CNP Consults: 05/21/17 03:53 Consult to Cardiology [CONS] Routine Comment: Consulting Provider: Cardiology [place] Reason for Consult: SVT Call Completed: No 05/21/17 10:22 Consult to Electrophysiology (EP) [CONS] Routine Consulting Provider: Electrophysiology [place] Reason for Consult: SVT Call Completed: Yes Hospital course: Mr. Monsivais is a 61 year old male - Time Spent with Patient Total time spent providing and/or coordinating discharge services: - Constitutional Vitals: Temp Pulse Resp BP Pulse Ox 98.2 F 64 18 116/76 96 05/22/17 05:00 05/22/17 07:00 05/22/17 07:00 05/22/17 07:00 05/22/17 07:00 - Attending Attestation I examined this patient and my medical decision-making was reviewed with the Resident Physician on 05/22/17. I agree with the documented findings, disposition and treatment plan as described except to the extent set forth below. Mr Monsivais has been hospitalized for rapid a fib. He has had negative stress test. His sotalol dose has been increased. Currently afebrile with stable vitals. He is ready for discharge home. Exam Alert. Comfortable Heart not tachy Lungs no wheeze Plan D/C home today Follow up with PCP and cardiology.
--- NOTE | 2017-05-22 15:35 | Physician Discharge Referral ---
Home Health/Hosp Referral Info Transfer to: Home Health Provider in Charge Post Discharge: PCP - Diagnosis (1) Supraventricular tachycardia Priority: Primary Status: Acute (2) Elevated troponin Priority: Secondary Status: Acute (3) HTN (hypertension) Priority: Secondary Status: Chronic (4) Multiple sclerosis Priority: Secondary Status: Chronic (5) DVT prophylaxis Priority: Secondary Status: Acute - Respiratory Orders Smoking Cessation: Smoking cessation has been advised. For more information, call the [place] Tobacco Quit Line at 7-316-WPMS-NOW. - Services Needed Following services are medically necessary services: Physical Therapy - Transfer Medications Prescriptions: Propafenone [Rhythmol] 225 mg PO TID #90 tablet Home Medications: Baclofen 20 mg PO BID 05/08/16 [History] Celecoxib [Celebrex] 200 mg PO BID 05/08/16 [History] Furosemide [Lasix] 20 mg PO DAILY PRN 05/08/16 [History] Metoprolol [Lopressor] 50 mg PO BID 05/08/16 [History] Potassium Chloride [Klor-Con Sprinkle] 10 meq PO DAILY PRN 05/08/16 [History] Pravastatin Sodium [Pravachol] 40 mg PO HS 05/08/16 [History] Sertraline [Zoloft] 50 mg PO BID 05/08/16 [History] Solifenacin Succinate [Vesicare] 5 mg PO DAILY 05/08/16 [History] Tamsulosin [Flomax] 0.4 mg PO DAILY 05/08/16 [History] traMADol [Ultram] 50 - 100 mg PO TID PRN 05/08/16 [History] Propafenone [Rhythmol] 225 mg PO TID #90 tablet 05/22/17 [Rx] Allergies/Adverse Reactions: 3 Allergy/AdvReac Type Severity Reaction Status Date / Time No Known Allergies Allergy Verified 05/10/17 15:24 Certification: Further, I certify that my clinical findings support that this patient is homebound (i.e. absences from home require considerable and taxing effort and are for medical reasons or moravian services or infrequently or short duration when for other reasons) because: Homebound Reason: Leaving home requires considerable and taxing effort due to condition Attestation: My signature below is to certify that this patient is under my care and that I, or nurse practitioner, or a physician's physician assistant certified working with me, has a face-to -face encounter with this patient.
--- NOTE | 2017-05-23 10:41 | Electrocardiograph Report ---
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
--- NOTE | 2017-05-23 11:40 | Electrocardiograph Report ---
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
== END 2017-05-22 17:42 | disposition home health service (06) ==
LOC: EMEROO 21:16 → 2NENU 21:16
PROVIDERS: ADMIT Internal Medicine; ATTEND Internal Medicine

== ENCOUNTER 2017-06-22 08:40 | Inpatient (IN) ==
[2017-06-22 09:41] LABS: Basophils # 0.1 K/mcL (0.0-0.2); Basophils % 0.4 %; Eosinophils # 0.1 K/mcL (0.0-0.6); Eosinophils % 0.8 %; Hematocrit 44.6 % (37.5-50.1); Hemoglobin 14.3 g/dL (12.9-16.9); Immature Granulocytes % 0.5 % (0-4); Lymphocytes # 1.5 K/mcL (0.6-4.6); Lymphocytes % 11.5 %; Mean Corpuscular HGB Conc 32.1 g/dL (31.6-35.5); Mean Corpuscular Hemoglobin 29.2 pg (28.0-33.3); Mean Corpuscular Volume 91.2 fL (83.0-100.0); Mean Platelet Volume 9.7 fL (9.4-12.4); Monocytes # 0.6 K/mcL (0.0-1.3); Monocytes % 4.5 %; Neutrophils # 10.7 K/mcL (1.6-8.9); Platelet Count 208 K/mcL (140-400); Red Blood Count 4.89 M/mcL (4.19-5.50); Red Cell Distribution Width 13.2 % (11.5-14.5); Segmented Neutrophils % 82.3 %
[2017-06-22 09:54] LABS: BUN/Creatinine Ratio 23 (6-26); Blood Urea Nitrogen 19 mg/dL (8-26); Calcium 9.1 mg/dL (8.6-10.8); Carbon Dioxide 22 mEq/L (19-29); Chloride 106 mEq/L (98-109); Creatine Kinase 135 Units/L (30-200); Glucose 82 mg/dL (70-99); Osmolality,Calculated 289 (280-300); Sodium 139 mEq/L (136-145); eGFR For African Americans > 60 (> 60); eGFR For Non-African Americans > 60 (> 60)
[2017-06-22 09:55] LABS: Potassium 5.2 mEq/L (3.5-4.5)
[2017-06-22] MEDS ORDERED: *HR* HYDROcodone/Acet 5/325 mg TABLET PO ONE (10:14)
--- NOTE | 2017-06-22 11:14 | Emergency Department Note ---
Disposition Clinical Impression: Multiple sclerosis, Left hip pain Fall Qualifiers: Encounter type: initial encounter Qualified Code(s): W19.XXXA - Unspecified fall, initial encounter Closed left hip fracture Qualifiers: Encounter type: initial encounter Qualified Code(s): S72.002A - Fracture of unspecified part of neck of left femur, initial encounter for closed fracture Disposition: Admitted As Inpatient Condition: Good Referrals: Bhavana Rodriguez [employer]SULTANT [Primary Care Provider] - Forms: ED Satisfaction Letter Time of Disposition: 12:49 General Adult HPI - General Chief complaint: ED Epistaxis Stated complaint: fall Time Seen by Provider: 06/22/17 08:41 Source: EMS Mode of arrival: EMS Limitations: no limitations Nursing Notes Reviewed: Yes Vital Signs Reviewed: Yes - History of Present Illness HPI Narrative: Patient presents with complaint of a mechanical fall. Patient was getting up out of his chair today and is lacy out from underneath him and he fell to the ground hitting his left hip. He is concerned because he had persistent pain. Denied any other symptoms or complaint spelled events. Denied chest pain shortness of breath headache vision changes nausea vomiting or diarrhea. Denies any other concerning symptoms and presentation this time. Onset (ago): Just [employer] Location: pelvis, buttocks, left, lower extremity Radiation: non-radiation Pain Severity: moderate Pain Scale: 7 Quality: aching Consistency: constant Improves with: nothing Worsens with: movement Associated symptoms: Reports: denies other symptoms Treatments Prior to Arrival: none - Related Data Home Medications Medication Instructions Recorded Confirmed Baclofen 20 mg PO BID 05/08/16 05/20/17 Celecoxib [Celebrex] 200 mg PO BID 05/08/16 05/20/17 Furosemide [Lasix] 20 mg PO DAILY PRN 05/08/16 05/20/17 Metoprolol [Lopressor] 50 mg PO BID 05/08/16 05/20/17 Potassium Chloride [Klor-Con 10 meq PO DAILY PRN 05/08/16 05/20/17 Sprinkle] Pravastatin Sodium [Pravachol] 40 mg PO HS 05/08/16 05/20/17 Sertraline [Zoloft] 50 mg PO BID 05/08/16 05/20/17 Solifenacin Succinate [Vesicare] 5 mg PO DAILY 05/08/16 05/20/17 Tamsulosin [Flomax] 0.4 mg PO DAILY 05/08/16 05/20/17 traMADol [Ultram] 50 - 100 mg PO TID PRN 05/08/16 05/20/17 Previous Rx's Medication Instructions Recorded Propafenone [Rhythmol] 225 mg PO TID #90 tablet 05/22/17 Allergies Allergy/AdvReac Type Severity Reaction Status Date / Time No Known Allergies Allergy Verified 05/10/17 15:24 All systems ED: reviewed and negative except as stated. Review of Systems: As Per HPI Constitutional: Denies: fever, chills, weakness Cardiovascular: Denies: chest pain, palpitations, dyspnea on exertion, orthopnea , edema Respiratory: Denies: cough, dyspnea, wheezes Gastrointestinal: Denies: abdominal pain, nausea, vomiting, diarrhea Genitourinary: Denies: dysuria, frequency Musculoskeletal: Reports: back pain. Denies: neck pain Integumentary: Denies: rash Neurological: Denies: headache Psychiatric: Denies: anxiety Endocrine: Denies: fatigue Past Medical History - Past Medical History Attestation: Yes The following information was validated with the patient. Source: patient Medical history: Reports: hyperlipidemia, hypertension, SVT, other Surgical history: Reports: orthopedic, other, other Psychiatric history: Reports: depression - Social History Smoking Status: Former smoker Smokeless Tobacco Status: No Alcohol use: Reports: none Drug use: Reports: none Physical Exam - General Limitations: no limitations General appearance: alert, in no apparent distress - Head Head exam: atraumatic, normocephalic, normal inspection - ENT ENT exam: normal exam, normal oropharynx, mucous membranes moist - Neck Neck exam: Present: normal inspection, full ROM, trachea midline - Chest Chest inspection: Present: normal inspection, symmetric chest wall rise - Respiratory Respiratory exam: Present: normal lung sounds bilaterally. Absent: respiratory distress, wheezes, stridor, accessory muscle use - Cardiovascular Cardiovascular exam: Present: regular rate, normal rhythm, normal heart sounds - Abdominal Exam Abdominal exam: Present: soft, Non-Tender, normal bowel sounds. Absent: tenderness, distention, guarding, rebound, rigidity - Extremities Exam Extremities exam: Present: normal inspection, tenderness, normal capillary refill. Absent: full ROM - Back Exam Back exam: Present: normal inspection, tenderness - Neurological Exam Neurological exam: Present: alert, oriented X3, CN II-XII intact, normal gait - Skin Skin exam: Present: warm, dry, intact, normal color Course Course Narrative: Patient seen and examined this arrival by EMS. See history of present illness. 62-year-old male presents here today from home after having with described as a mechanical fall. Patient was getting up out of his electric assist chair and trying to transition to his wheelchair for his daily activities. While transitioning he felt his legs give out and he fell to the ground. He denied any closed head injury. Denied any other injuries to the extremities or chest or abdomen. His main complaint is left lower back pain and left hip pain. He has pain with movement of her left leg at this time. No visible signs of trauma to the extremity was no signs of pelvic laxity or instability. Patient has difficulty lifting the left leg up off the table but he does have normal sensation in the L3-L5 dermatomes bilaterally. Baseline patient does have multiple sclerosis. He has never had a flareup in the past. Screening laboratory workup and urinalysis to be collected as well as CT imaging of the abdomen and plain films of the pelvis. Patient has no other acute findings during his physical exam and treatment course. Lungs are clear heart is regular. Patient will have detailed workup completed this time for mechanical fall and symptoms. Pain medication be provided by mouth. Expect patient to go discharge home once workup is completed with scissors and acute pathology. - Reevaluation(s) Reevaluation #1: Patient found a negative imaging modalities this time. EKG shows sinus rhythm and no acute pathology. Labs are otherwise unremarkable. Patient is still having persistent pain in the hips a CT imaging the hip will be completed or resulted. Patient otherwise has no acute pathologic findings in this evaluation treatment course. Time: 12:02 Reevaluation #2: Patient on the left hip fracture based on CT imaging of the abdomen. Pain medication provided at this time. Patient had consultation with the on-call orthopedic physician Dr. Garcia. Recommended hospitalist admission. Requested femur filming at around. This was accommodated. Hospitalist Dr. Tyler and I reviewed the case. Happy to accept admission of this time. Patient will be admitted for definitive management of mechanical fall and left hip fracture Time: 12:48 Vital Signs Temperature 98.2 F 06/22/17 08:41 Pulse Rate 73 06/22/17 08:41 Respiratory Rate 16 06/22/17 08:41 Blood Pressure 129/86 06/22/17 08:41 O2 Sat by Pulse Oximetry 94 06/22/17 08:41 Temperature 98.2 F 06/22/17 08:41 Pulse Rate 64 06/22/17 10:39 Respiratory Rate 16 06/22/17 10:39 Blood Pressure 122/75 06/22/17 10:39 O2 Sat by Pulse Oximetry 95 06/22/17 10:39 Oxygen Delivery Oxygen Delivery Room Air Medical Decision Making - MDM Narrative Medical decision making narrative: Mechanical fall, left hip pain, left hip fracture - Medical Records Medical records reviewed: Yes I reviewed the patient's medical records. - Lab Data Lab results reviewed: Yes I reviewed the patient's lab results. Result diagrams: 06/22/17 09:35 06/22/17 09:35 Lab Results 06/22/17 06/22/17 Range/Units 09:35 09:35 WBC 13.1 H (4.3-11.1) K/mcL RBC 4.89 (4.19-5.50) M/mcL Hgb 14.3 (12.9-16.9) g/dL Hct 44.6 (37.5-50.1) % MCV 91.2 (83.0-100.0) fL MCH 29.2 (28.0-33.3) pg MCHC 32.1 (31.6-35.5) g/dL RDW 13.2 (11.5-14.5) % Plt Count 208 (140-400) K/mcL MPV 9.7 (9.4-12.4) fL Immature Gran % 0.5 (0-4) % Seg Neutrophils % 82.3 % Lymphocytes % 11.5 % Monocytes % 4.5 % Eosinophils % 0.8 % Basophils % 0.4 % Neutrophils # 10.7 H (1.6-8.9) K/mcL Lymphocytes # 1.5 (0.6-4.6) K/mcL Monocytes # 0.6 (0.0-1.3) K/mcL Eosinophils # 0.1 (0.0-0.6) K/mcL Basophils # 0.1 (0.0-0.2) K/mcL Sodium 139 (136-145) mEq/L Potassium 5.2 H (3.5-4.5) mEq/L Chloride 106 (98-109) mEq/L Carbon Dioxide 22 (19-29) mEq/L BUN 19 (8-26) mg/dL Creatinine 0.81 (0.72-1.25) mg/dL Est GFR ( Amer) > 60 (> 60) Est GFR (Non-Af Amer) > 60 (> 60) BUN/Creatinine Ratio 23 (6-26) Glucose 82 (70-99) mg/dL Calculated Osmolality 289 (280-300) Calcium 9.1 (8.6-10.8) mg/dL Creatine Kinase 135 (30-200) Units/L - Radiology Data Radiology results reviewed: Yes I reviewed the patient's radiology results. Chest x-ray and CT of the abdomen are otherwise unremarkable for acute intra- abdominal or bony abnormalities. - EKG Data EKG #1 EKG attestation: Yes I reviewed and interpreted this EKG. EKG results narrative: EKG shows sinus rhythm. Ventricular rate is 62. P1 44. QRS duration of 87. QTC of 429. Intervals all within normal limits EKG was compared to previous one 07/22/16. No acute signs of ST segment elevation or abnormality at this time. Chronic T-wave inversions are stable in comparison to previous.
[2017-06-22] MEDS ORDERED: Ondansetron 4 MG/2 ML VIAL ONE (13:27)
[2017-06-22] MEDS: *HR* HYDROmorphone (PF) 1 MG/ML SYRINGE IVP ONE ×2 (13:30→13:57)
[2017-06-22] MEDS ORDERED: *HR* HYDROmorphone 2 MG/ML SYRINGE IM ONE (13:53)
[2017-06-22] MEDS ORDERED: Ondansetron 4 MG/2 ML VIAL IM ONE (13:56)
[2017-06-22] MEDS ORDERED: Naloxone 0.4 MG/ML INJ IVP PRN (14:41)
[2017-06-22] MEDS ORDERED: Ondansetron 4 MG/2 ML VIAL IVP PRN (14:41)
[2017-06-22] MEDS: 0.9 % Sodium Chloride 1,000 ML IVC SCH (16:46)
--- NOTE | 2017-06-22 17:21 | Internal Med History&Physical ---
<Vladislav Pepe - Last Filed: 06/22/17 18:31> Date of Encounter: 06/22/17 Time of Encounter: 17:19 Assessment and Plan (1) Closed left hip fracture Current visit: Yes Status: Acute History of multiple sclerosis. Left fracture S/P mechanical fall while attempting to transfer from wheelchair to electric chair. He has a revised cardiac risk index score of 1, he is currently on a beta sally. He is an intermediate risk patient for an intermediate risk nonemergent right hip repair. He is not on any anticoagulation. Surgical risk factors include hypertension and history of SVT S/P ablation 2 weeks ago, and multiple sclerosis. Patient has very limited functional status. Last echocardiogram was 05/05 with moderate diastolic dysfunction and mild mitral valve regurgitation Orthopedic consult-awaiting further recommendations, continue with surgical clearance Cardio consult- for further recommendations opiates for pain management Continuous tele and O2 monitoring CBC, CMP in the morning Qualifiers: Encounter type: initial encounter Qualified Code(s): S72.002A - Fracture of unspecified part of neck of left femur, initial encounter for closed fracture (2) Multiple sclerosis Current visit: Yes Status: Chronic (3) HTN (hypertension) Current visit: Yes Status: Chronic Stable, resume beta sally Qualifiers: Hypertension type: essential hypertension Qualified Code(s): I10 - Essential (primary) hypertension (4) DVT prophylaxis Current visit: Yes Status: Acute Heparin 5000 units subcutaneous twice a day Internal Medicine - H&P: HPI Chief complaint: Left hip fracture Admitted From: Home Plans for Post Hospital Care: Home History of present illness: Mr. Monsivais is a 62 year old male with PMH of HRT, HTN, SVT and multiple sclerosis. He presents today with pain in his left hip S/P mechanical fall. The patient reports that he was attempting to transfer from his bed to his electric wheelchair and his legs gave out from underneath him and he fell to the ground hitting his left hip. Since following has had persistent left hip pain. He denies any chest pain, SOB syncopal events, dizziness or lightheadedness. Past Med Surg Social Fam HX - Past Medical History Medical history: hyperlipidemia, hypertension, SVT, other Psychiatric history: depression - Past Surgical History Surgical History: orthopedic, other, other - Social History Smoking Status: Former smoker Smokeless Tobacco Status: No Alcohol use: none Drug use: none - Family History Mother Hx Family Cardiac Disorders: Yes (heart stents) Hx Family Cancer: Yes (breast cancer) Father Hx Family Cardiac Disorders: Yes Brother Hx Family Cardiac Disorders: Yes Internal Medicine - H&P: Meds Baclofen 20 mg PO BID 05/08/16 [History] Celecoxib [Celebrex] 200 mg PO BID 05/08/16 [History] Furosemide [Lasix] 20 mg PO DAILY PRN 05/08/16 [History] Metoprolol [Lopressor] 50 mg PO BID 05/08/16 [History] Potassium Chloride [Klor-Con Sprinkle] 10 meq PO DAILY PRN 05/08/16 [History] Pravastatin Sodium [Pravachol] 40 mg PO HS 05/08/16 [History] Sertraline [Zoloft] 50 mg PO BID 05/08/16 [History] Solifenacin Succinate [Vesicare] 5 mg PO DAILY 05/08/16 [History] Tamsulosin [Flomax] 0.4 mg PO DAILY 05/08/16 [History] traMADol [Ultram] 50 - 100 mg PO TID PRN 05/08/16 [History] Propafenone [Rhythmol] 225 mg PO TID #90 tablet 05/22/17 [Rx] 3 Allergy/AdvReac Type Severity Reaction Status Date / Time No Known Allergies Allergy Verified 05/10/17 15:24 All Systems PM: A 10-system review of systems was performed and is negative for pertinent findings except as documented above in the HPI. - Constitutional Constitutional: fatigue, falls, malaise, weakness (History of MS), no chills, no fever(s), no night sweats - EENT Eyes: no change in vision, no discharge, no pain, no photophobia Ears: no ear discharge, no ear pain, no tinnitus Nose, mouth and throat: no dysphagia, no nasal discharge, no neck pain, no sore throat - Cardiovascular Cardiovascular ROS IM: no chest pain, no diaphoresis, no dyspnea, no lightheadedness, no palpitations, no syncope - Respiratory Respiratory: no cough, no dyspnea, no wheezing, no excessive phlegm production - Gastrointestinal Gastrointestinal: no abdominal pain, no diarrhea, no hematemesis, no hematochezia, no melena, no nausea, no vomiting - Musculoskeletal Musculoskeletal ROS IM: no numbness, no tingling - Integumentary Integumentary IM: no rash, no unusual bruising - Neurological Neurological ROS: tingling, no confusion, no convulsions, no focal weakness, no headache(s), no numbness, no tremor(s) - Hematologic/Lymphatic Hematologic/Lymphatic: no easy bruising - Constitutional Vitals: Temp Pulse Resp BP Pulse Ox 97.9 F 82 16 132/80 98 06/22/17 15:19 06/22/17 15:19 06/22/17 15:19 06/22/17 15:19 06/22/17 15:46 General appearance: Present: cooperative, mild distress, A&O X 3, answers questions appropriately - Head Head exam: Present: atraumatic, normocephalic - Eye Eye exam: Present: PERRL Pupils: Present: PERRL - Neck Neck exam general surgery: Present: supple, trachea midline. Absent: lymphadenopathy - Respiratory Respiratory exam: Present: CTAB. Absent: accessory muscle use, rales, rhonchi, wheezes - Cardiovascular Cardiovascular exam: Present: RRR, +S1, +S2. Absent: diastolic murmur, gallop, rubs, systolic murmur - GI/Abdominal GI/Abdominal exam: Present: normal bowel sounds, soft, no peritoneal signs. Absent: distended, tenderness - Extremities Exam Extremities exam: Present: normal capillary refill, tenderness, warm, radial pulses palpable and symmetrical. Absent: calf tenderness, cyanotic, full ROM, pedal edema - Neurological Exam Neurological exam: Present: CN II-XII intact, oriented X3, no focal deficits. Absent: pronater drift, facial droop, speech deficit - Skin Skin exam: Present: dry, intact Internal Med - H&P Results - Labs CBC & Chem 7: 06/22/17 09:35 06/22/17 09:35 - EKG Data -: EKG Interpreted by Myself EKG shows normal: sinus rhythm Rate: normal - EKG Data When compared to previous EKG: there is no significant change Interpretation IM: normal EKG - Diagnostic Studies Other Images Status: image reviewed by me Additional comments: Acute nondisplaced left intertrochanteric proximal femur fracture. Chest x-ray Status: image reviewed by me Additional comments: Minimal bibasilar atelectasis and/or scarring. Pulmonary vascular congestion and/or central vascular crowding <Bob Tyler P - Last Filed: 06/22/17 18:46> Date of Encounter: 06/22/17 Internal Medicine - H&P: HPI History of present illness: Mr. Monsivais is a 62 year old male All Systems PM: A 10-system review of systems was performed and is negative for pertinent findings except as documented above in the HPI. - Constitutional Vitals: Temp Pulse Resp BP Pulse Ox 97.9 F 82 16 132/80 98 06/22/17 15:19 06/22/17 15:19 06/22/17 15:19 06/22/17 15:19 06/22/17 15:46 Internal Med - H&P Results - Labs CBC & Chem 7: 06/22/17 09:35 06/22/17 09:35 - Attending Attestation I examined this patient and my medical decision-making was reviewed with the Resident Physician/MACHINE [employer]OL ELECTRICIAN. I agree with the documented findings, disposition and treatment plan as described except to the extent set forth below. Patient seen and examined. Chart reviewed. Patient is comfortably lying in the bed. Patient is admitted with the left hip fracture. Patient has a background history of multiple sclerosis/atrial fibrillation/ status post-ablation. I have personally spoke to Dr. Arias from cardiology and he will evaluate the patient.
[2017-06-22] MEDS: *HR* Morphine 2 MG/ML SYRINGE IVP PRN ×2 (17:24→21:36)
--- NOTE | 2017-06-22 19:54 | Orthopedic Consult Note ---
Date of Encounter: 06/22/17 Time of Encounter: 19:50 Assessment and Plan (1) Closed left hip fracture Current Visit: Yes Status: Acute I did discuss the diagnosis in detail with the patient. Options were discussed and the recommendation was for internal fixation of the left hip to stabilize the proximal femur and provide pain control and reduce the risk of displacement. The risks discussed included but were not limited to stiffness, bleeding, infection, blood clots, damage to neurovascular structures, tendons, ligaments, and bone. Also discussed was the risk of continued symptoms and possible need for further procedures. I did discuss the anesthesia risks including stroke, heart attack, and . I did discuss the reasonable, foreseeable postoperative course with patient. He did wish to proceed and consent was obtained. He will require cardiac clearance prior to surgery. We will proceed when medically able. Qualifiers: Encounter type: initial encounter Qualified Code(s): S72.002A - Fracture of unspecified part of neck of left femur, initial encounter for closed fracture History of Present Illness HPI: Mr. Monsivais is a 62 year old male who has multiple sclerosis. He does typically and really with a motorized wheelchair but does use a walker occasionally. Of note is just shy of a month out from catheter ablation for supraventricular tachycardia. During a transfer the patient felt a snap in his left hip and he collapsed. Emergency department obtained imaging studies which showed a nondisplaced intertrochanteric hip fracture. He is admitted to the hospitalist with consultation orthopedics. On my evaluation the patient complains of isolated pain about the left hip. He denies any headache, neck pain, chest pain, abdominal pain, bilateral upper extremity pain, and right lower extremity pain. He has hyperesthesia of the feet at baseline. He denies any numbness, tingling, or any other associated signs or symptoms. Pain is worse with any movement of the left hip or lower extremity and better with rest. No other modifying factors. 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 Past Med Surg Social Fam HX - Past Medical History Medical history: hyperlipidemia, hypertension, SVT, other Psychiatric history: depression - Past Surgical History Surgical History: orthopedic, other, other - Social History Smoking Status: Former smoker Smokeless Tobacco Status: No Alcohol use: none Drug use: none - Family History Mother Hx Family Cardiac Disorders: Yes (heart stents) Hx Family Cancer: Yes (breast cancer) Father Hx Family Cardiac Disorders: Yes Brother Hx Family Cardiac Disorders: Yes Medications and Allergies Baclofen 20 mg PO BID 05/08/16 [History] Celecoxib [Celebrex] 200 mg PO BID 05/08/16 [History] Furosemide [Lasix] 20 mg PO DAILY PRN 05/08/16 [History] Metoprolol [Lopressor] 50 mg PO BID 05/08/16 [History] Potassium Chloride [Klor-Con Sprinkle] 10 meq PO DAILY PRN 05/08/16 [History] Pravastatin Sodium [Pravachol] 40 mg PO HS 05/08/16 [History] Sertraline [Zoloft] 50 mg PO BID 05/08/16 [History] Solifenacin Succinate [Vesicare] 5 mg PO DAILY 05/08/16 [History] Tamsulosin [Flomax] 0.4 mg PO DAILY 05/08/16 [History] traMADol [Ultram] 50 - 100 mg PO TID PRN 05/08/16 [History] Propafenone [Rhythmol] 225 mg PO TID #90 tablet 05/22/17 [Rx] 3 Allergy/AdvReac Type Severity Reaction Status Date / Time No Known Allergies Allergy Verified 05/10/17 15:24 All Systems Reviewed: A 10-system review of systems was performed and is negative for pertinent findings except as documented above in the HPI. Physical Exam - Constitutional Vitals: Temp Pulse Resp BP Pulse Ox 97.9 F 82 16 132/80 98 06/22/17 15:19 06/22/17 15:19 06/22/17 15:19 06/22/17 15:19 06/22/17 15:46 Constitutional -Vitals reviewed -The patient is well developed and well nourished. -Mood is pleasant. -The patient is well groomed. Psychiatric -The patient is fully alert and oriented x 3. Respiratory: -Respiratory effort normal Abdomen: -Soft abdomen -Non tender -Non distended: Left upper extremity: -No deformities. The overlying skin is intact. No obvious signs of acute trauma. -No tenderness to palpation throughout. -No significant pain with passive motion of the shoulder, elbow, wrist, and fingers within the limits of the bed. -Able to make an "OK" sign, cross the index and long fingers, and extend the thumb. -Sensation grossly intact to light touch throughout the median, radial, and ulnar distributions. -Radial pulse is present; Fingers have good capillary refill. Right upper extremity: -No deformities. The overlying skin is intact. No obvious signs of acute trauma. -No tenderness to palpation throughout. -No significant pain with passive motion of the shoulder, elbow, wrist, and fingers within the limits of the bed. -Able to make an "OK" sign, cross the index and long fingers, and extend the thumb. -Sensation grossly intact to light touch throughout the median, radial, and ulnar distributions. -Radial pulse is present; Fingers have good capillary refill. Left lower extremity: -No deformities noted -The overlying skin is intact. -There is tenderness in the groin region as well as the proximal lateral thigh. -I did not range the hip due to the known fracture. -No tenderness along the distal thigh, leg, ankle, foot, or toes. -Able to dorsiflex and plantarflex the ankle and toes. -Sensation is grossly intact to light touch throughout the sural, saphenous, superficial peroneal, and deep peroneal distributions. -Toes have good capillary refill. Right lower extremity: -No deformities. The overlying skin is intact. No obvious signs of acute trauma. -No tenderness to palpation throughout. -No pain with passive motion of the hip, knee, ankle, and toes within the limits of the bed. -No pain with axial loading of the thigh. -Able to dorsiflex and plantarflex the ankle and toes. -Sensation is grossly intact to light touch throughout the sural, saphenous, superficial peroneal, and deep peroneal distributions. -Toes have good capillary refill. Diagnostic Imaging: I did personally review and interpret the x-ray of the pelvis and left femur as well as a CT scan of the left hip which show a nondisplaced intertrochanteric hip fracture Results - Labs Result Diagrams: 06/22/17 09:35 06/22/17 09:35 Labs: Abnormal lab results WBC 13.1 K/mcL (4.3-11.1) H 06/22/17 09:35 Neutrophils # 10.7 K/mcL (1.6-8.9) H 06/22/17 09:35 Potassium 5.2 mEq/L (3.5-4.5) H 06/22/17 09:35 All other labs normal. Consult Discharge Plan - Plan Referrals: Bhavana Rodriguez, YANE [Primary Care Provider] -
[2017-06-22] MEDS: Celecoxib 200 MG CAPSULE PO SCH (20:48)
[2017-06-22] MEDS ORDERED: Baclofen 10 MG TABLET PO SCH (21:00)
--- NOTE | 2017-06-22 21:31 | Anesthesia Evaluation PreOp ---
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: Other (multiple sclerosis with very limited ambulation) Other Medical History: Renal (BPH), Other (obesity BMI=47) Anesthesia History: No Prior Anesthetic Complications, Past Anesthesia Alcohol Use: none Drug use: none Medications and Allergies Baclofen 20 mg PO BID 05/08/16 [History] Celecoxib [Celebrex] 200 mg PO BID 05/08/16 [History] Furosemide [Lasix] 20 mg PO DAILY PRN 05/08/16 [History] Metoprolol [Lopressor] 50 mg PO BID 05/08/16 [History] Potassium Chloride [Klor-Con Sprinkle] 10 meq PO DAILY PRN 05/08/16 [History] Pravastatin Sodium [Pravachol] 40 mg PO HS 05/08/16 [History] Sertraline [Zoloft] 50 mg PO BID 05/08/16 [History] Solifenacin Succinate [Vesicare] 5 mg PO DAILY 05/08/16 [History] Tamsulosin [Flomax] 0.4 mg PO DAILY 05/08/16 [History] traMADol [Ultram] 50 - 100 mg PO TID PRN 05/08/16 [History] Propafenone [Rhythmol] 225 mg PO TID #90 tablet 05/22/17 [Rx] 3 Allergy/AdvReac Type Severity Reaction Status Date / Time No Known Allergies Allergy Verified 05/10/17 15:24 - Meds/Allergy Pre-op Review Medications Reviewed: Yes Allergies Reviewed: Yes Beta Blockers on Current Med List: Yes If Beta Blockers taken, Date/Time (Last Dose taken): 06/22/2017 at 2048 Anesthesia Results - Labs 06/22/17 09:35 06/22/17 09:35 Laboratory Tests 05/20/17 22:02 PT 12.0 INR 1.1 APTT 28.6 - Imaging EKG: report reviewed (05/22/2017 SINUS BRADYCARDIA BORDERLINE LEFT AXIS DEVIATION ST DEVIATION AND MODERATE T-WAVE ABNORMALITY, CONSIDER ANTERIOR ISCHEMIA) Additional studies: 05/22/2017 Stress Impression: Perfusion imaging was negative for ischemia or infarct. Pharmacologic stress ECG is non diagnostic for ischemia due to baseline non-specific ST and T changes. Gated EF = 58%. 05/11/2017 Echo Impressions: LVEF 60-65%. Moderate left ventricular diastolic dysfunction. Normal right ventricular structure and function. Mild mitral regurgitation. No pulmonary hypertension by TR gradient. Anesthesia Exam Vital Signs/O2 Sat, Most Current Temp Pulse Resp BP Pulse Ox 98.7 F 88 14 119/76 92 06/22/17 20:08 06/22/17 20:08 06/22/17 20:08 06/22/17 20:08 06/22/17 20:08 Height: 5'9''/1.75 m Weight: 318 lbs/144.2 kg - HEENT Pupil (Motor): EOMI Mallampati: III Teeth: Normal Oral Opening: Greater than 3 - PRECIPITATE WASHER LOC: Oriented PRECIPITATE WASHER Motor: Normal Face, Deficit RUE, Deficit LUE, Deficit RLE, Deficit LLE PRECIPITATE WASHER Sensory: Normal: RUE, Face, Deficit: LUE (hand numbness), RLE ( hypersensitivity foot), LLE (hypersensitivity foot) - Cardiac Rhythm: Regular Murmur: None - Pulmonary Breath Sounds: bilateral Clear Respiratory Effort: Symmetrical Anesthesia Assess/Plan ASA Score: 3 Modified [place] Scale for Level of Consciousness: Cooperative, oriented, and tranquil Anesthetic Plan: General Monitoring Plan: Standard Monitors Recovery Plan: PACU
[2017-06-22] MEDS: *HR* HYDROcodone/Acet 5/325 mg TABLET PO PRN (23:10)
[2017-06-23] MEDS: 0.9 % Sodium Chloride 1,000 ML IVC SCH (01:38)
[2017-06-23] MEDS: *HR* Morphine 2 MG/ML SYRINGE IVP PRN ×4 (03:15→21:25)
[2017-06-23] MEDS: *HR* HYDROcodone/Acet 5/325 mg TABLET PO PRN ×4 (04:02→23:24)
[2017-06-23 05:55] LABS: Alanine Aminotransferase 19 Units/L (0-55); Albumin 3.1 g/dL (3.5-5.0); Albumin/Globulin Ratio 0.9 (1.1-2.2); Alkaline Phosphatase 107 Units/L (38-126); Aspartate Amino Transferase 17 Units/L (5-34); BUN/Creatinine Ratio 28 (6-26); Bilirubin,Total 0.7 mg/dL (0.2-1.2); Blood Urea Nitrogen 22 mg/dL (8-26); Calcium 8.4 mg/dL (8.6-10.8); Carbon Dioxide 26 mEq/L (19-29); Chloride 98 mEq/L (98-109); Globulin 3.3 g/dL (2.4-3.5); Glucose 97 mg/dL (70-99); Osmolality,Calculated 271 (280-300); Potassium 3.7 mEq/L (3.5-4.5); Sodium 129 mEq/L (136-145); Total Protein 6.4 g/dL (6.0-8.3); eGFR For African Americans > 60 (> 60); eGFR For Non-African Americans > 60 (> 60)
[2017-06-23 06:07] LABS: Basophils # 0.1 K/mcL (0.0-0.2); Basophils % 0.5 %; Eosinophils # 0.4 K/mcL (0.0-0.6); Eosinophils % 3.9 %; Hematocrit 38.5 % (37.5-50.1); Hemoglobin 12.5 g/dL (12.9-16.9); Immature Granulocytes % 0.2 % (0-4); Lymphocytes # 1.6 K/mcL (0.6-4.6); Lymphocytes % 15.7 %; Mean Corpuscular HGB Conc 32.5 g/dL (31.6-35.5); Mean Corpuscular Hemoglobin 29.3 pg (28.0-33.3); Mean Corpuscular Volume 90.4 fL (83.0-100.0); Mean Platelet Volume 9.8 fL (9.4-12.4); Monocytes # 0.8 K/mcL (0.0-1.3); Monocytes % 8.1 %; Neutrophils # 7.4 K/mcL (1.6-8.9); Platelet Count 212 K/mcL (140-400); Red Blood Count 4.26 M/mcL (4.19-5.50); Red Cell Distribution Width 13.3 % (11.5-14.5); Segmented Neutrophils % 71.6 %
[2017-06-23 07:35] LABS: Creatine Kinase 345 Units/L (30-200)
--- NOTE | 2017-06-23 07:54 | Orthopedics Progress Note ---
Date of Encounter: 06/23/17 Time of Encounter: 07:52 - Assessment and Plan (1) Closed left hip fracture Current Visit: Yes Status: Acute Qualifiers: Encounter type: initial encounter Qualified Code(s): S72.002A - Fracture of unspecified part of neck of left femur, initial encounter for closed fracture Subjective Interval history: S: Resting in bed. Expected pain to the left hip. Pain is controlled. O: Afebrile and vital signs are stable Pain with any movement of the left lower extremity He can dorsi flex and plantar flex ankle and toes The foot is sensate and well-perfused A: Left nondisplaced intertrochanteric hip fracture P: Plan on surgical stabilization today when medically cleared. Objective Vital signs: Vital Signs Temp Pulse Resp BP Pulse Ox 06/23/17 07:14 97.9 F 69 17 115/73 96 06/23/17 04:00 78 17 116/62 95 06/23/17 03:31 98.4 F 83 18 118/76 93 06/23/17 01:36 98.8 F 83 18 95/52 93 06/22/17 20:08 98.7 F 88 14 119/76 92 06/22/17 15:46 98 06/22/17 15:19 97.9 F 82 16 132/80 98 06/22/17 13:38 16 123/74 Intake and Output 06/22/17 06/22/17 06/23/17 15:59 23:59 07:59 Intake Total 190 / 190 1000 / 1000 Output Total 0 / 0 0 / 0 200 / 200 Balance 0 / 0 190 / 190 800 / 800 Intake: IV Fluids 1000 / 1000 0.9 % Sodium Chloride 1,000 ML 1000 / 1000 @ 100 mls/hr IVC .Q10H DEJA Rx#: [id number] Oral 190 / 190 0 / 0 Output: Urine 0 / 0 0 / 0 200 / 200 Other: Meal Dinner Percent of Meal Consumed 60% # Bowel Movements 0 Weight 144.242 kg - Labs CBC & BMP: 06/23/17 05:00 06/23/17 05:00 Labs: Abnormal lab results Hgb 12.5 g/dL (12.9-16.9) L D 06/23/17 05:00 Sodium 129 mEq/L (136-145) L D 06/23/17 05:00 BUN/Creatinine Ratio 28 (6-26) H 06/23/17 05:00 Calculated Osmolality 271 (280-300) L 06/23/17 05:00 Calcium 8.4 mg/dL (8.6-10.8) L 06/23/17 05:00 Creatine Kinase 345 Units/L (30-200) H D 06/23/17 05:00 Albumin 3.1 g/dL (3.5-5.0) L 06/23/17 05:00 Albumin/Globulin Ratio 0.9 (1.1-2.2) L 06/23/17 05:00 - VTE Documentation of Mechanical Device: Graduated compression elastic hosiery Consult Discharge Plan - Plan Referrals: Bhavana Rodriguez, JUSTICE [employer] DEPUTY CLERK [Primary Care Provider] -
[2017-06-23] MEDS: Celecoxib 200 MG CAPSULE PO SCH ×2 (08:47→20:10)
--- NOTE | 2017-06-23 11:10 | Internal Med Progress Note ---
<Ramírez Rdz - Last Filed: 06/23/17 18:05> Date of Encounter: 06/23/17 Time of Encounter: 11:03 - Assessment and plan (1) HTN (hypertension) Current Visit: Yes Status: Chronic Assessment and plan: Blood pressure is currently stable, continue Lopressor 50 mg by mouth twice a day. Qualifiers: Hypertension type: essential hypertension Qualified Code(s): I10 - Essential (primary) hypertension (2) Multiple sclerosis Current Visit: Yes Status: Chronic Assessment and plan: Patient has a history of MS, resulting in difficulty with walking and wheelchair -bound. Patient denies any recent flares. (3) Fall Current Visit: Yes Status: Acute Assessment and plan: Left fracture S/P mechanical fall while attempting to transfer from wheelchair to electric chair. Qualifiers: Encounter type: initial encounter Qualified Code(s): W19.XXXA - Unspecified fall, initial encounter (4) Closed left hip fracture Current Visit: Yes Status: Acute Assessment and plan: Left fracture S/P mechanical fall while attempting to transfer from wheelchair to electric chair. Surgical risk factors would include hypertension, history of SVT status post ablation 2 weeks ago And multiple sclerosis. Hemoglobin dropped from 14-12 likely secondary to hip fracture. - Blood pressure currently well controlled on beta sally. 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 - MS currently stable. - Patient has had prior intubations for right shoulder surgery and left lung surgery and denies any complications with anesthesia or intubation. Patient is an intermediate risk for low risk surgery. Patient currently nothing by mouth for possible orthopedic intervention today. Qualifiers: Encounter type: initial encounter Qualified Code(s): S72.002A - Fracture of unspecified part of neck of left femur, initial encounter for closed fracture (5) DVT prophylaxis Current Visit: Yes Status: Acute Assessment and plan: Subcutaneous heparin (6) BPH (benign prostatic hyperplasia) Current Visit: No Status: Chronic Assessment and plan: Symptoms controlled with Flomax. - Continue inpatient. Qualifiers: Lower urinary tract symptom presence: symptoms present - Subjective Interval history: Mr. Monsivais 62-year-old male seen in the patient bedside as morning. He is in stable condition with occasional episodes of spasms in his left extremity. He states that the pain is manageable. He denies any nausea vomiting, chest pain chest pressure abdominal pain or difficulty with urination. He last had a bowel movement on Thursday and denies any current bowel issues. He denies any shooting pain, numbness tingling or weakness in his left lower extremity. He has no further concerns at this time and is awaiting orthopedic intervention. - Constitutional Vitals: Temp Pulse Resp BP Pulse Ox 97.9 F 69 17 115/73 96 06/23/17 07:14 06/23/17 07:14 06/23/17 07:14 06/23/17 07:14 06/23/17 07:14 General appearance: Present: cooperative, mild distress, A&O X 3, answers questions appropriately - Head Head exam: Present: atraumatic, normocephalic - Eye Eye exam: Present: PERRL, conjuntiva pink, sclera anicteric Pupils: Present: PERRL - Neck Neck exam general surgery: Present: supple, trachea midline. Absent: lymphadenopathy - Respiratory Respiratory exam: Present: CTAB. Absent: accessory muscle use, rales, rhonchi, wheezes - Cardiovascular Cardiovascular exam: Present: RRR, +S1, +S2. Absent: diastolic murmur, gallop, rubs, systolic murmur - GI/Abdominal GI/Abdominal exam: Present: normal bowel sounds, soft, no peritoneal signs. Absent: distended, tenderness - Extremities Exam Extremities exam: Present: warm, radial pulses palpable and symmetrical. Absent : calf tenderness, cyanotic, pedal edema Additional comments: Left lower extremity is shorter and externally rotated compared to the right, patient able to move his foot and toes on active motion. Neurovascularly intact bilateral lower extremities. - Neurological Exam Neurological exam: Present: CN II-XII intact, oriented X3, no focal deficits. Absent: pronater drift, facial droop, speech deficit - Skin Skin exam: Present: dry, intact Internal Medicine: Result - Labs CBC & Chem 7: 06/23/17 05:00 06/23/17 09:13 Labs: Short CBC 06/23/17 Range/Units 05:00 WBC 10.4 (4.3-11.1) K/mcL Hgb 12.5 L D (12.9-16.9) g/dL Hct 38.5 (37.5-50.1) % Plt Count 212 (140-400) K/mcL Neutrophils # 7.4 (1.6-8.9) K/mcL BMP 06/23/17 06/23/17 05:00 09:13 Sodium 129 L D 137 D Potassium 3.7 D Chloride 98 Carbon Dioxide 26 BUN 22 Creatinine 0.79 Glucose 97 Calcium 8.4 L Liver Function 06/23/17 Range/Units 05:00 Total Bilirubin 0.7 (0.2-1.2) mg/dL AST 17 (5-34) Units/L ALT 19 (0-55) Units/L Alkaline Phosphatase 107 (38-126) Units/L Albumin 3.1 L (3.5-5.0) g/dL - VTE Documentation of Mechanical Device: Graduated compression elastic hosiery Consult Discharge Plan - Plan Referrals: Bhavana Rodriguez, [employer] TESTER [Primary Care Provider] - <Danis Lucio - Last Filed: 06/23/17 19:32> Date of Encounter: 06/23/17 - Assessment and plan (1) Closed left hip fracture Current Visit: Yes Status: Acute Qualifiers: Encounter type: initial encounter Qualified Code(s): S72.002A - Fracture of unspecified part of neck of left femur, initial encounter for closed fracture (2) HTN (hypertension) Current Visit: Yes Status: Chronic Qualifiers: Hypertension type: essential hypertension Qualified Code(s): I10 - Essential (primary) hypertension (3) Multiple sclerosis Current Visit: Yes Status: Chronic (4) Hyperlipidemia Current Visit: No Status: Chronic Qualifiers: Hyperlipidemia type: mixed hyperlipidemia Qualified Code(s): E78.2 - Mixed hyperlipidemia (5) Morbid obesity Current Visit: Yes Status: Chronic - Constitutional Vitals: Temp Pulse Resp BP Pulse Ox 97.9 F 64 17 123/80 96 06/23/17 16:58 06/23/17 16:58 06/23/17 16:58 06/23/17 16:58 06/23/17 16:58 Internal Medicine: Result - Labs CBC & Chem 7: 06/23/17 05:00 06/23/17 09:13 Labs: Short CBC 06/23/17 Range/Units 05:00 WBC 10.4 (4.3-11.1) K/mcL Hgb 12.5 L D (12.9-16.9) g/dL Hct 38.5 (37.5-50.1) % Plt Count 212 (140-400) K/mcL Neutrophils # 7.4 (1.6-8.9) K/mcL BMP 06/23/17 06/23/17 05:00 09:13 Sodium 129 L D 137 D Potassium 3.7 D Chloride 98 Carbon Dioxide 26 BUN 22 Creatinine 0.79 Glucose 97 Calcium 8.4 L Liver Function 06/23/17 Range/Units 05:00 Total Bilirubin 0.7 (0.2-1.2) mg/dL AST 17 (5-34) Units/L ALT 19 (0-55) Units/L Alkaline Phosphatase 107 (38-126) Units/L Albumin 3.1 L (3.5-5.0) g/dL - ABG Interpretation ABG results: PT/INR, D-dimer PT 11.8 Seconds (9.4-12.1) 06/23/17 15:10 - Attending Attestation I examined this patient and my medical decision-making was reviewed with the Resident Physician on 06/23/17. I agree with the documented findings, disposition and treatment plan as described except to the extent set forth below. Mr Monsivais is currently admitted for acute hip fracture. He remains moderate to high risk due to potential for worsening clinical status. Mr Monsivais is resting comfortably. Pain is controlled at this time. No fever or chills. No CP or SOB. Cardiology to see. Exam Alert. Comfortable Mucus membranes dry Heart reg No wheeze Abd soft I/P 1. Hip fracture 2. MS Further diagnoses and plan as above.
--- NOTE | 2017-06-23 11:46 | Cardiology Consult Note ---
Date of Encounter: 06/23/17 Time of Encounter: 11:44 Assessment and Plan (1) Abnormal EKG Current Visit: Yes Status: Acute Possible Wellens sign and ischemia in the LAD territory. This despite a negative stress test which possibly could be a false negative. Would recommend a left heart catheter prior to surgery as a diagnostic tool for better assessment of risk. (2) Elevated troponin Current Visit: No Status: Acute On a previous admission with slight elevation in troponins with SVT. This along with his abnormal EKG is concerning for underlying ischemia. Left heart catheter is planned for today to rule out coronary artery disease and assessment of his cardiac risk with hip surgery Discussion w patient/family: The assessment and plan as outlined above was discussed with the patient and/or family members who expressed understanding and agreement. All questions were answered. Thank you for involving us in the care of your patient. Please call with any questions. History of Present Illness Consult date: 06/23/17 Requesting physician: Vladislav Pepe Consult reason: cardiac clearance Chief complaint: abnormal EKG History of present illness: Mr. Monsivais is a 62 year old male presents to the emergency department after a fall and a hip fracture. Patient has a strong family history of coronary artery disease recent negative stress test obtained after an abnormal EKG. He had initially described exertional shortness of breath increased fatigue and tiredness in April 2017. The stress test was recommended and this was prior to his EKG changes. On presentation early May and noticing his EKG changes a stress test was obtained. His recurrent admission was for SVT episodes. Stress test was unremarkable however his EKG continues to have flipped T waves V1 through V6 which are concerning for ischemia. With the possibility of a false negative stress test I do feel a left heart catheter is reasonable prior to surgery as a diagnostic heart catheter only to evaluate for LAD disease. I discussed with him risks benefits and alternatives and agrees to proceed Past Med Surg Social Fam HX - Past Medical History Medical history: hyperlipidemia, hypertension, SVT, other Psychiatric history: depression - Past Surgical History Surgical History: orthopedic, other, other - Social History Smoking Status: Former smoker Smokeless Tobacco Status: No Alcohol use: none Drug use: none - Family History Mother Hx Family Cardiac Disorders: Yes (heart stents) Hx Family Cancer: Yes (breast cancer) Father Hx Family Cardiac Disorders: Yes Brother Hx Family Cardiac Disorders: Yes Medications and Allergies Baclofen 20 mg PO BID 05/08/16 [History] Celecoxib [Celebrex] 200 mg PO BID 05/08/16 [History] Furosemide [Lasix] 20 mg PO DAILY PRN 05/08/16 [History] Metoprolol [Lopressor] 50 mg PO BID 05/08/16 [History] Potassium Chloride [Klor-Con Sprinkle] 10 meq PO DAILY PRN 05/08/16 [History] Pravastatin Sodium [Pravachol] 40 mg PO HS 05/08/16 [History] Sertraline [Zoloft] 50 mg PO BID 05/08/16 [History] Solifenacin Succinate [Vesicare] 5 mg PO DAILY 05/08/16 [History] Tamsulosin [Flomax] 0.4 mg PO DAILY 05/08/16 [History] traMADol [Ultram] 50 - 100 mg PO TID PRN 05/08/16 [History] Propafenone [Rhythmol] 225 mg PO TID #90 tablet 05/22/17 [Rx] 3 Allergy/AdvReac Type Severity Reaction Status Date / Time No Known Allergies Allergy Verified 05/10/17 15:24 All Systems Review: A 10-system review of systems was performed and is negative for pertinent findings except as documented above in the HPI. Physical Examination General: Conversant, No Apparent Distress HEENT: Atraumatic, Normocephaly, Mucus Membranes Moist Neck: No JVD, Normal carotid pulses Cardiac: Reg Rate and Rhythm, Normal S1 and S2, No Murmur Lungs: Normal Breath Sounds, No Wheeze, Rales, Rhonchi Neuro: Alert and responsive, No focal deficits noted Abdomen: Soft, Non-Tender Skin: No rashes noted on visualized skin Musculoskeletal: No Chest Wall Tenderness Extremities: No Clubbing, No Cyanosis, No Edema, Normal Pulses Results 06/23/17 05:00 06/23/17 09:13 Lab Results 06/23/17 06/23/17 06/23/17 05:00 05:00 09:13 WBC 10.4 Hgb 12.5 L D Hct 38.5 Plt Count 212 Sodium 129 L D 137 D Potassium 3.7 D Chloride 98 Carbon Dioxide 26 BUN 22 Creatinine 0.79 Glucose 97 Calcium 8.4 L Total Bilirubin 0.7 AST 17 ALT 19 Alkaline Phosphatase 107 Consult Discharge Plan - Plan Referrals: Bhavana Rodriguez, YANE [Primary Care Provider] -
[2017-06-23] MEDS ORDERED: Nitroglycerin 1,000 MCG/10 ML VIAL IV ONE (12:34)
[2017-06-23] MEDS ORDERED: 0.9 % Sodium Chloride 1,000 ML ONE ×2 (12:34→12:53)
[2017-06-23] MEDS ORDERED: *HR* Heparin 10,000 UNIT/10 ML VIAL ONE (12:34)
--- NOTE | 2017-06-23 13:06 | Event Note ---
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 Recent stress test negative for any ischemia however with these recent EKG changes we suspect underlying CAD. These EKG findings were discussed with patient and possibility of performing a LHC to rule out LAD disease. Patient does have a family history of CAD. Patient today has declined to have the LHC understanding the cardiac risks involved with surgery and theses EKG changes suspicious for LAD disease. He will proceed to have hip surgery with a high risk for cardiac events due to these EKG changes. Patient understands and accepts this high risk.
[2017-06-23] MEDS: *HR* Heparin 5,000 UNIT/ML VIAL SQ SCH ×2 (15:23→16:23)
[2017-06-23 15:30] LABS: INR 1.1; Prothrombin Time 11.8 Seconds (9.4-12.1)
--- NOTE | 2017-06-23 21:03 | Electrocardiograph Report ---
[place] [address] Test Date: 2017-06-22 Pat Name: César Monsivais Department: 104 Room: 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
[2017-06-24] MEDS: *HR* Heparin 5,000 UNIT/ML VIAL SQ SCH ×2 (05:28→18:09)
[2017-06-24] MEDS: *HR* HYDROcodone/Acet 5/325 mg TABLET PO PRN (05:28)
[2017-06-24 07:00] LABS: Alanine Aminotransferase 15 Units/L (0-55); Albumin/Globulin Ratio 0.9 (1.1-2.2); Alkaline Phosphatase 95 Units/L (38-126); Aspartate Amino Transferase 13 Units/L (5-34); BUN/Creatinine Ratio 31 (6-26); Bilirubin,Total 0.8 mg/dL (0.2-1.2); Blood Urea Nitrogen 23 mg/dL (8-26); Calcium 8.3 mg/dL (8.6-10.8); Carbon Dioxide 23 mEq/L (19-29); Chloride 104 mEq/L (98-109); Globulin 3.4 g/dL (2.4-3.5); Glucose 97 mg/dL (70-99); Magnesium 1.9 mg/dL (1.6-2.6); Osmolality,Calculated 288 (280-300); Potassium 3.9 mEq/L (3.5-4.5); Sodium 137 mEq/L (136-145); Total Protein 6.4 g/dL (6.0-8.3); eGFR For African Americans > 60 (> 60); eGFR For Non-African Americans > 60 (> 60)
--- NOTE | 2017-06-24 07:36 | Orthopedics Progress Note ---
Date of Encounter: 06/24/17 Time of Encounter: 07:34 - Assessment and Plan (1) Closed left hip fracture Current Visit: Yes Status: Acute Qualifiers: Encounter type: initial encounter Qualified Code(s): S72.002A - Fracture of unspecified part of neck of left femur, initial encounter for closed fracture Subjective Interval history: S: Procedure was canceled yesterday. I was notified by the nursing staff that he was not cleared medically by the hospitalist because he had not undergone heart catheterization. O: Afebrile and vital signs are stable Left lower extremity tender in the groin and proximal lateral thigh as expected Pain with any movement of the left lower extremity He can dorsiflex and plantar flex ankle and toes The foot is sensate and well-perfused A: Left nondisplaced intertrochanteric hip fracture P: At this point the patient is agreeable to his heart catheterization We will proceed with surgery later today if medically cleared by the hospitalist Objective Vital signs: Vital Signs Temp Pulse Resp BP Pulse Ox 06/24/17 06:49 98.5 F 74 16 120/76 97 06/24/17 05:25 97.7 F 70 15 114/74 91 06/23/17 23:24 98.2 F 90 16 121/78 88 06/23/17 20:20 94 06/23/17 19:53 98.2 F 76 17 103/70 94 06/23/17 16:58 97.9 F 64 17 123/80 96 06/23/17 12:07 98.3 F 71 17 105/69 93 Intake and Output 06/23/17 06/23/17 06/24/17 15:59 23:59 07:59 Intake Total 240 / 240 0 / 0 Output Total 125 / 125 Balance 240 / 240 -125 / -125 Intake: Oral 240 / 240 0 / 0 Output: Urine 125 / 125 Other: Meal Dinner Percent of Meal Consumed 75% - Labs CBC & BMP: 06/23/17 05:00 06/24/17 06:30 Labs: Abnormal lab results Hgb 12.5 g/dL (12.9-16.9) L D 06/23/17 05:00 BUN/Creatinine Ratio 31 (6-26) H 06/24/17 06:30 Calcium 8.3 mg/dL (8.6-10.8) L 06/24/17 06:30 Creatine Kinase 345 Units/L (30-200) H D 06/23/17 05:00 Albumin 3.0 g/dL (3.5-5.0) L 06/24/17 06:30 Albumin/Globulin Ratio 0.9 (1.1-2.2) L 06/24/17 06:30 - VTE Documentation of Mechanical Device: Graduated compression elastic hosiery Consult Discharge Plan - Plan Referrals: Bhavana Rodriguez, [employer] SANDER TENDER [Primary Care Provider] -
[2017-06-24 08:26] LABS: Basophils # 0.1 K/mcL (0.0-0.2); Basophils % 0.5 %; Eosinophils # 0.5 K/mcL (0.0-0.6); Eosinophils % 4.6 %; Hematocrit 36.7 % (37.5-50.1); Hemoglobin 11.8 g/dL (12.9-16.9); Immature Granulocytes % 0.3 % (0-4); Lymphocytes % 10.4 %; Mean Corpuscular HGB Conc 32.2 g/dL (31.6-35.5); Mean Corpuscular Hemoglobin 29.2 pg (28.0-33.3); Mean Corpuscular Volume 90.8 fL (83.0-100.0); Mean Platelet Volume 9.9 fL (9.4-12.4); Monocytes # 0.9 K/mcL (0.0-1.3); Monocytes % 9.3 %; Neutrophils # 7.5 K/mcL (1.6-8.9); Platelet Count 189 K/mcL (140-400); Red Blood Count 4.04 M/mcL (4.19-5.50); Red Cell Distribution Width 13.2 % (11.5-14.5); Segmented Neutrophils % 74.9 %
[2017-06-24] MEDS: Celecoxib 200 MG CAPSULE PO SCH ×2 (08:50→20:04)
[2017-06-24] MEDS ORDERED: Nitroglycerin 1,000 MCG/10 ML VIAL IV ONE (09:24)
[2017-06-24] MEDS ORDERED: 0.9 % Sodium Chloride 1,000 ML ONE ×2 (09:24→09:50)
[2017-06-24] MEDS ORDERED: Heparin 1,000 UNITS/500 mL NS 500 ML ONE (09:24)
[2017-06-24] MEDS ORDERED: *HR* Heparin 10,000 UNIT/10 ML VIAL ONE (09:24)
[2017-06-24] MEDS ORDERED: *HR* FentaNYL (PF) 100 MCG/2 ML VIAL ONE ×2 (09:49→15:36)
[2017-06-24] MEDS ORDERED: *HR* Midazolam HCl 5 MG/5 ML VIAL IVP ONE (09:50)
--- NOTE | 2017-06-24 09:52 | Pre-Sedation Evaluation ---
Pre-sedation evaluation - Pre-sedation checklist Date of procedure: 06/24/17 Procedure: left heart cath Recent Vitals: Last Vital Signs Temp 98.5 F 06/24/17 06:49 Pulse 74 06/24/17 06:49 Resp 16 06/24/17 06:49 BP 120/76 06/24/17 06:49 Pulse Ox 97 06/24/17 06:49 H&P (including ROS) documented in medical record: Yes Previous reaction to sedatives/anesthetics: No Dietary Status: NPO after Midnight Airway Assessment: Patient can open mouth completely, TMJ function normal Dentition: No loose teeth or bridges Possible difficult airway: No ASA Classification *see protocol: CLASS IV-Severe systemic disease/constant threat to pt's life Plan of Care: Pt appropriate candidate for procedure/moderate/conscious sedation , Risks/benefits of procedure/sedation discussed w/ patient/family, If not NPO; Risk of intake outweiged by necessity to perform procedure
--- NOTE | 2017-06-24 10:28 | Invasive Diagnostic Lab Proc ---
Name: César Monsivais Date of Study: 06/24/2017 Date: 1955 Ht: 68.9in Medical Record#: [id number] Age: 62 Wt: 317.69lb Gender: Male BSA: 2.51 Order #: [id number] BMI: 47.05 Physicians Procedure Physician: Luis Freitas DO Referring MD: Referring MD: Staff Name Position Time In AnneAshley villalta RN Monitor 09:48 AM Bailey Mcleod RN Head Machinist 09:48 AM Urmila Lopze RT (R) Scrub 09:49 AM Debby Muñoz RT (R) 10:11 AM Indications Indication EKG changes Pre-Op Procedures Performed Procedure L HRT ARTERY/VENTRICLE ANGIO Pre-Procedure Checklist Informed consent is complete signed and on chart. H&P is on chart. ID band is on and ID verified with patient. Patient NPO for procedure The procedure was described for the patient and questions were answered. Blood Pressure: 120/76 ECG is on chart. Rhythm: NSR Plan of Care Patient will tolerate the procedure without complications. Adequate level of comfort will be maintained. Hemodynamics will remain stable Patient will recover from procedure without complications. Respiratory function will be maintained. Cardiac rhythm will remain stable. Patient temperature will be maintained. Patient and/or family have verbalized understanding of the procedure. Patient Education Chief Complaint/Reason for Test: Cardiac Cath Developmental Category: Adult (18-64 years) Developmentally Appropriate for Age: Yes Learning Barriers: None Education Needs: Procedure Education Method: Verbal Information Taught: Cardiac Cath Educational Evaluation: Able to repeat information Intravenous Access Time IV Size Location DC'd Fluid/Drip Rate Units RN 09:30 AM 18g 1 07/23" Patent On Arrival Lt Arm Bailey Mcleod RN Allergies NO KNOWN DRUG ALLERGIES Vital Signs Time BP (mmHg) HR (bpm) O2 Sat. RR (bpm) LOC 09:32 AM 120 / 76 74 97 % 16 5 = Fully awake and oriented or at pre-proc level 09:59 AM / % 5 = Fully awake and oriented or at pre-proc level 09:50 AM 141 / 85 58 93 % 20 09:55 AM 139 / 81 71 87 % 14 10:00 AM 141 / 86 72 91 % 17 10:05 AM 131 / 78 65 94 % 20 10:10 AM 143 / 85 66 95 % 25 09:59 AM / % 4 = Oriented but drowsy Procedural Medications Time Medication Dose Units Method Given By 09:49 AM Oxygen 2 L/min nasal cannula Bailey Mcleod RN 09:53 AM Versed 2 mg Intravenous Bailey Mcleod RN 10:00 AM Lidocaine 2% 10 ml Subcutaneous Luis Freitas DO ASA Classification: CLASS IV- Severe systemic that is constant threat to patient's life Amy Score Preprocedure Postprocedure Activity 2- Moves 4 extremities sustained head lift Activity 2- Moves 4 extremities sustained head lift Circulation 2- SBP +/= 20 points of pre-anesthetic level Circulation 2- SBP +/= 20 points of pre-anesthetic level Consciousness 2- Awake and alert oriented x 3 Consciousness 2- Awake and alert oriented x 3 O2 Saturation 2- Able to maintain O2 satruation of 92% on room air O2 Saturation 2- Able to maintain O2 satruation of 92% on room air Respiratory 2- Able to deep breathe and cough well Respiratory 2- Able to deep breathe and cough well Total Score 10 Total Score 10 Contrast Agent: Isovue Diagnostic Contrast: 50 ml Total Contrast: 50 ml Fluoro Dose: 342 mGy Procedure Log Time Note Enter By 09:48 AM 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 Bilateral groin prepped with Chloraprep by Urmila Lopez (R), safety strap applied then patient was draped. Skin intact. mm 09:49 AM Physicolamide paged/called 09:49. oumm 09:49 AM Physicolamide responded and notified patient is ready 09:49 [facility] 09:49 AM Physician arrived 09:49 [facility] 09:49 AM Meet and greet completed 09:49 AM Sign in performed according to hospital policy. [email or web address] 09:49 AM Procedure start 09:49 [email or web address] 09:49 AM Time: 09:49 Oxygen on at 2 L/min per nasal cannula by Bailey Mcleod RN [facility] 09:49 AM CathStat 09:49 AM Case Start 09:49 AM Vitals capture started with the following parameters, Patient=Adult, Interval=5 min, Initial Hwfliske=565 mmHg, Deflation Rate=5 mmHg, Cuff placed on Right Arm 09:50 AM HR=58 bpm, XOZH=058/85 mmhg, SpO2=93.0 %, Resp=20 B/min, Comment=SB 09:53 AM Time: 09:53 Versed 2 mg Intravenous Given by Bailey Mcleod RN [facility] 09:55 AM HR=71 bpm, KFZN=331/81 mmhg, SpO2=87.0 %, Resp=14 B/min, Comment=SR 09:57 AM ASA Class CLASS IV- Severe systemic that is constant threat to patient's life [facility] 09[facility]58 AM Recorded ECG: HR=66 Condition=Condition 1 09:59 AM Pressure channel 2 zeroed. 09:59 AM Time: 09:59 Patient comfortable and pain free: Yes [facility] 09[facility]59 AM Time: 09:59LOC: 5 = Fully awake and oriented or at pre-proc level tsoummers 09:59 AM Clinical Presentation: No symptoms, no angina tsoummers 10:00 AM Time out performed according to hospital policy tsoummers 10:00 AM Time: 10:00 10 ml Lidocaine 2% to right groin Subcutaneous Given by Luis Freitas DO tsoummers 10:00 AM HR=72 bpm, HAJO=412/86 mmhg, SpO2=91.0 %, Resp=17 B/min, Comment=SR 10:01 AM Micro-Introducer Kit utilized for sheath placement tsoummers 10:02 AM Access obtained by percutaneous puncture. 6Fr 10cm Terumo [place] sheath placed in right Femoral artery. [id number] tsoummers 10:02 AM 0.035 145cm Navilyst 3mmJ wire [id number] tsoummers 10:02 AM 6Fr FR 4 catheter inserted over the wire [facility] tsoummers 10:03 AM Catheter selectively placed in left ventricle tsoummers 10:03 AM Recorded Pressure: LV, HR=67, Condition=Condition 1 (Left Ventricle) LV 111/17/18 10:03 AM Bolus angiogram of left Ventricle complete: hand injection tsoummers 10:03 AM Recorded Pressure: LV, Ao, HR=70, Condition=Condition 1 (Left Ventricle) LV ?/?/?, (Aorta) Ao 132/70/97 10:04 AM RCA angiography performed in multiple views. [email or web address] 10:04 AM Recorded Pressure: Ao, HR=62, Condition=Condition 1 (Aorta) Ao 120/57/80 10:04 AM Catheter removed tsoummers 10:05 AM 6Fr FL 4 catheter inserted over the wire DNC tsoummers 10:05 AM LCA angiography performed in multiple views. tsoummers 10:05 AM Recorded Pressure: Ao, HR=67, Condition=Condition 1 (Aorta) Ao 127/66/90 10:05 AM HR=65 bpm, YNAG=441/78 mmhg, SpO2=94.0 %, Resp=20 B/min, Comment=SR 10:08 AM Bolus angiogram of right Femoral complete: hand injection tsoummers 10:08 AM Catheter removed oumm 10:09 AM Wire removed tsoummers 10:09 AM Procedure completed at 10:09 tsoummers 10:10 AM Arterial sheath pulled, Mynx closure device used and was Successful [id number] S/N. tsoummers 10:10 AM HR=66 bpm, IWLI=494/85 mmhg, SpO2=95.0 %, Resp=25 B/min, Comment=SR 10:11 AM Debby Muñoz RT (R) Position: Time in: 10:11 tsoummers 10:13 AM Mynx rep at bedside for closure assistance. tsoummers 10:13 AM Sign out completed: Radiation Dose 341.53 mGy Fluoro Time: 1.5 Isovue 370 - 200ml contrast 50 ml given by Luis Freitas DO. Complications: NoneCardiac Rehab Consult needed: NoConfirmed administered medications: Yes tsoummers 10:13 AM Isovue 370 - 200ml,1 Bottle(s) used. tsoummers 10:13 AM Estimated Blood Loss: minimal tsoummers 10:13 AM Post ECG NSR tsoummers 10:14 AM Post Blood Pressure 143/85 tsoummers 10:14 AM Information taught Cardiac Cath tsoummers 10:14 AM Education needs Procedure, Plan of Care, and Responsibilities of Patient in Care tsoummers 10:14 AM Learning barriers :None tsoummers 10:14 AM Education Methods Verbal tsoummers 10:14 AM Time: 09:59LOC: 4 = Oriented but drowsy tsoummers 10:14 AM Time: 09:59 Patient comfortable and pain free: Yes tsoummers 10:14 AM Education evaluation Able to repeat information tsoummers 10:14 AM Site status No bleeding/hematoma - Rt Groin as reported by Urmila Lopez RT (R) at 10:14 tsoummers 10:14 AM Opsite applied tsoummers 10:14 AM Plavix, Effient or Brilinta given No tsoummers 10:14 AM Delay to floor No tsoummers 10:14 AM Complications: None tsoummers 10:14 AM Fluoro Time: 1.5 tsoummers 10:15 AM Isovue 370 - 200ml contrast 50 ml given by Luis Freitas DO. tsoummers 10:15 AM Radiation Dose 341.53 mGy tsoummers 10:15 AM No family with pt at this time. tsoummers 10:18 AM 10:18 Post Pulses Bilateral DP 1+ tsoummers 10:19 AM Coronary Dominance: right tsoummers 10:21 AM Report given to Anamaria CRUZ Pt taken to [facility] Room #30. 10:21 tsoummers 10:21 AM Patient out of room: 10:21 [email or web address] Complications Complication None Hemodynamics Pressures Site Systolic/A Wave Diastolic/V Wave Mean LV 111 17 18 LV AO 132 70 97 AO 120 57 80 AO 127 66 90 Post Procedure Information Blood Pressure: 143/85 mmHg Rhythm: NSR Post procedural instructions were given Closure Device Time Device Success/Fail 06/24/2017 10:10:00 AM MynxGrip Successful Site Checks Time Location Status Staff Sheath In? Note 10:14 AM Rt Groin No bleeding/hematoma Urmila Lopez RT (R) Pulses Time Site Pre-Procedure Post-Procedure Note 06/24/2017 9:30:00 AM Bilateral radial 2+ 06/24/2017 9:30:00 AM Bilateral DP 1+ 10:18:00 AM Bilateral DP 1+ Updated by Ashley Menon RN on 06/24/2017 10:22:31 AM electronically signed on 06/24/2017 10:22:50 AM with status of Final
[2017-06-24] MEDS: 0.9 % Sodium Chloride 1,000 ML IVC SCH (10:30)
--- NOTE | 2017-06-24 10:31 | Event Note ---
Date of Encounter: 06/24/17 Time of Encounter: 10:20 - Cardiology Event Note LHC: Mild non-obstructive disease in proximal D1, mid LAD, normal EF at 55%, pt is at moderate cardiovascualr risk for planned procedure. Right femoral access site closed with MINX, (collagen plug) closure device. Moises Freitas D.O.
--- NOTE | 2017-06-24 10:31 | Internal Med Progress Note ---
<Ramírez Rdz - Last Filed: 06/24/17 10:35> Date of Encounter: 06/24/17 Time of Encounter: 10:29 - Assessment and plan (1) HTN (hypertension) Current Visit: Yes Status: Chronic Assessment and plan: Blood pressure is currently stable, continue Lopressor 50 mg by mouth twice a day. Qualifiers: Hypertension type: essential hypertension Qualified Code(s): I10 - Essential (primary) hypertension (2) Multiple sclerosis Current Visit: Yes Status: Chronic Assessment and plan: Patient has a history of MS, resulting in difficulty with walking and wheelchair -bound. Patient denies any recent flares. (3) Fall Current Visit: Yes Status: Acute Assessment and plan: Left fracture S/P mechanical fall while attempting to transfer from wheelchair to electric chair. Qualifiers: Encounter type: initial encounter Qualified Code(s): W19.XXXA - Unspecified fall, initial encounter (4) Closed left hip fracture Current Visit: Yes Status: Acute Assessment and plan: Left fracture S/P mechanical fall while attempting to transfer from wheelchair to electric chair. Surgical risk factors would include hypertension, history of SVT status post ablation 2 weeks ago And multiple sclerosis. Hemoglobin dropped from 14-12 likely secondary to hip fracture. - Blood pressure currently well controlled on beta sally. 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 - MS currently stable. - Patient has had prior intubations for right shoulder surgery and left lung surgery and denies any complications with anesthesia or intubation. Patient is a moderate risk for low risk surgery. Underwent C today; per cardiology: LHC: Mild non-obstructive disease in proximal D1, mid LAD, normal EF at 55%, pt is at moderate cardiovascualr risk for planned procedure. Right femoral access site closed with MINX, (collagen plug) closure device. Patient currently nothing by mouth for possible orthopedic intervention today. Qualifiers: Encounter type: initial encounter Qualified Code(s): S72.002A - Fracture of unspecified part of neck of left femur, initial encounter for closed fracture (5) DVT prophylaxis Current Visit: Yes Status: Acute Assessment and plan: Subcutaneous heparin - Subjective Interval history: Mr. Monsivais 62-year-old male seen in the patient bedside as morning. He is in stable condition post C this morning. He denies any chest pain, SOB, palpitations, Abd pain, N/V. His pain in his left leg is controlled. Tolerated [facility] today. awaiting orthopedic repair. - Constitutional Vitals: Temp Pulse Resp BP Pulse Ox 98.5 F 74 16 120/76 97 06/24/17 06:49 06/24/17 06:49 06/24/17 06:49 06/24/17 06:49 06/24/17 06:49 General appearance: Present: cooperative, mild distress, A&O X 3, answers questions appropriately - Head Head exam: Present: atraumatic, normocephalic - Eye Eye exam: Present: PERRL, conjuntiva pink, sclera anicteric Pupils: Present: PERRL - Neck Neck exam general surgery: Present: supple, trachea midline. Absent: lymphadenopathy - Respiratory Respiratory exam: Present: CTAB. Absent: accessory muscle use, rales, rhonchi, wheezes - Cardiovascular Cardiovascular exam: Present: RRR, +S1, +S2. Absent: diastolic murmur, gallop, rubs, systolic murmur - GI/Abdominal GI/Abdominal exam: Present: normal bowel sounds, soft, no peritoneal signs. Absent: distended, tenderness - Extremities Exam Extremities exam: Present: warm, radial pulses palpable and symmetrical. Absent : calf tenderness, cyanotic, pedal edema Additional comments: Left LE externally rotated and short compared to right LE. Neurovascularly intact. - Neurological Exam Neurological exam: Present: alert, oriented X3, no focal deficits. Absent: pronater drift, facial droop, speech deficit - Skin Skin exam: Present: dry, intact Internal Medicine: Result - Labs CBC & Chem 7: 06/24/17 08:13 06/24/17 06:30 Labs: Short CBC 06/24/17 Range/Units 08:13 WBC 10.0 (4.3-11.1) K/mcL Hgb 11.8 L (12.9-16.9) g/dL Hct 36.7 L (37.5-50.1) % Plt Count 189 (140-400) K/mcL Neutrophils # 7.5 (1.6-8.9) K/mcL BMP 06/24/17 06:30 Sodium 137 Potassium 3.9 Chloride 104 Carbon Dioxide 23 BUN 23 Creatinine 0.75 Glucose 97 Calcium 8.3 L Liver Function 06/24/17 Range/Units 06:30 Total Bilirubin 0.8 (0.2-1.2) mg/dL AST 13 (5-34) Units/L ALT 15 (0-55) Units/L Alkaline Phosphatase 95 (38-126) Units/L Albumin 3.0 L (3.5-5.0) g/dL - ABG Interpretation ABG results: PT/INR, D-dimer PT 11.8 Seconds (9.4-12.1) 06/23/17 15:10 - VTE Documentation of Mechanical Device: Graduated compression elastic hosiery Consult Discharge Plan - Plan Referrals: Bhavana Rodriguez, JOY LOADER [Primary Care Provider] - <Danis Lucio - Last Filed: 06/24/17 18:22> Date of Encounter: 06/24/17 - Assessment and plan (1) Closed left hip fracture Current Visit: Yes Status: Acute Qualifiers: Encounter type: subsequent encounter Fracture healing: with routine healing Qualified Code(s): S72.002D - Fracture of unspecified part of neck of left femur, subsequent encounter for closed fracture with routine healing (2) HTN (hypertension) Current Visit: Yes Status: Chronic Qualifiers: Hypertension type: essential hypertension Qualified Code(s): I10 - Essential (primary) hypertension (3) Multiple sclerosis Current Visit: Yes Status: Chronic (4) Hyperlipidemia Current Visit: No Status: Chronic Qualifiers: Hyperlipidemia type: mixed hyperlipidemia Qualified Code(s): E78.2 - Mixed hyperlipidemia (5) Morbid obesity Current Visit: Yes Status: Chronic - Constitutional Vitals: Temp Pulse Resp BP Pulse Ox 99 F 68 18 118/68 93 06/24/17 17:43 06/24/17 18:08 06/24/17 18:08 06/24/17 18:08 06/24/17 18:08 Internal Medicine: Result - Labs CBC & Chem 7: 06/24/17 08:13 06/24/17 06:30 Labs: Short CBC 06/24/17 Range/Units 08:13 WBC 10.0 (4.3-11.1) K/mcL Hgb 11.8 L (12.9-16.9) g/dL Hct 36.7 L (37.5-50.1) % Plt Count 189 (140-400) K/mcL Neutrophils # 7.5 (1.6-8.9) K/mcL BMP 06/24/17 06:30 Sodium 137 Potassium 3.9 Chloride 104 Carbon Dioxide 23 BUN 23 Creatinine 0.75 Glucose 97 Calcium 8.3 L Liver Function 06/24/17 Range/Units 06:30 Total Bilirubin 0.8 (0.2-1.2) mg/dL AST 13 (5-34) Units/L ALT 15 (0-55) Units/L Alkaline Phosphatase 95 (38-126) Units/L Albumin 3.0 L (3.5-5.0) g/dL - ABG Interpretation ABG results: PT/INR, D-dimer PT 11.8 Seconds (9.4-12.1) 06/23/17 15:10 - Impressions Impressions Fluoroscopy 06/24/17 00:00 IMPRESSION: Intraprocedural fluoroscopic spot images as above. See separate procedure report for more information. D/ / Mert Mtz MD / Mert Mtz MD Interpreting Provider: Mert Mtz MD Hip X-Ray 06/24/17 17:18 IMPRESSION: Status post ORIF of an acute traumatic nondisplaced intertrochanteric left hip fracture. D/ / Kelechi Colorado MD / Kelechi Colorado MD Interpreting Provider: Kelechi Colorado MD - Attending Attestation I examined this patient and my medical decision-making was reviewed with the Resident Physician on 06/24/17. I agree with the documented findings, disposition and treatment plan as described except to the extent set forth below. Mr Monsivais is currently admitted for acute L hip fracture. He remains moderate to high risk due to potential for worsening clinical status. He had LHC today and is to go to OR today. Mr Monsivais is having some pain in his hip. He is hungry and thirsty. No fever or chills. No CP or SOB. Awaiting surgery. Exam Alert. Mod distress due to pain. Mucus membranes dry Heart reg No wheeze Abd soft I/P 1. L hip fracture 2. MS Further diagnoses and plan as above.
--- NOTE | 2017-06-24 11:47 | Event Note ---
Date of Encounter: 06/24/17 Time of Encounter: 11:45 - Cardiology Event Note 62 YOM with abnormal EKG (flipped T waves in the precordial lead) suggestive of ischemia s/p LHC with patent Coronaries. Patient can proceed with surgery with a low risk of cardiac events.
[2017-06-24] MEDS: *HR* Morphine 2 MG/ML SYRINGE IVP PRN (12:22)
[2017-06-24] MEDS ORDERED: ceFAZolin 3,000 MG in Water for inj. (sterile) 30 ML IVP ONE (15:34)
[2017-06-24] MEDS ORDERED: Lidocaine -MPF 4% 5 ML AMPUL ONE (15:36)
[2017-06-24] MEDS ORDERED: Lidocaine -MPF 2% 2 ML VIAL ONE ×2 (15:36→17:19)
[2017-06-24] MEDS ORDERED: *HR* Succinylcholine 200 MG/10 ML VIAL IVP ONE (15:36)
[2017-06-24] MEDS ORDERED: *HR* Propofol 200 MG/20 ML VIAL IVP ONE ×2 (15:36)
[2017-06-24] MEDS ORDERED: *HR* Midazolam HCl 2 MG/2 ML VIAL ONE (15:36)
[2017-06-24] MEDS ORDERED: *HR* HYDROmorphone (PF) 1 MG/ML SYRINGE IVP PRN (15:56)
[2017-06-24] MEDS ORDERED: Ondansetron 4 MG/2 ML VIAL IVP PRN (15:56)
[2017-06-24] MEDS ORDERED: *HR* HYDROmorphone (PF) 1 MG/ML SYRINGE ONE (17:18)
[2017-06-24] MEDS ORDERED: Dexamethasone 4 MG/ML VIAL ONE (17:18)
[2017-06-24] MEDS ORDERED: Ondansetron 4 MG/2 ML VIAL ONE (17:18)
[2017-06-24] MEDS ORDERED: Naloxone 0.4 MG/ML INJ IVP PRN (17:24)
[2017-06-24] MEDS ORDERED: *HR* Morphine 2 MG/ML SYRINGE ONE (17:38)
[2017-06-24] MEDS ORDERED: Acetaminophen IV 1,000 MG/100 ML INFUS..BTL ONE (17:50)
--- NOTE | 2017-06-24 17:51 | Anesthesia Evaluation Post Op ---
Date of Encounter: 06/24/17 Time of Encounter: 17:48 - Vital Signs Vital Signs: Vital Signs/O2 Sat/Glucose, Most Recent Temp Pulse Resp BP Pulse Ox 97.3 F L 68 12 132/76 97 06/24/17 17:47 06/24/17 17:47 06/24/17 17:47 06/24/17 17:47 06/24/17 17:47 - Lungs Lungs: Clear Ascult./Percussion - Airway Airway: Non-obstructed - Cardiovascular Regular Rate - Mental Status Mental Status: Alert & Oriented, Answers Appropriately - Pain Pain Scale: 0 Pain Scale used: Numeric (1 - 10) - Nausea Vomiting Nausea Vomiting: Not Present - Hydration Hydration: Ice chips, Kee catheter Notes: 06/24/17 17:49 AAOx3, VSS with no complaints - Discharge PostOp Status: Transfer Patient to floor
--- NOTE | 2017-06-24 20:19 | Orthopedic Operative Note ---
Date of procedure: 06/24/17 Procedure: OPERATIVE REPORT DATE OF PROCEDURE: 06/24/2017 SURGEON: Servando Garcia MD MEDICAL ASSEMBLY(S): There are no assistants PREOPERATIVE DIAGNOSIS: Left intertrochanteric hip fracture POSTOPERATIVE DIAGNOSIS: Same PROCEDURE: Internal fixation of the left hip with medullary nailing ANESTHESIA: General anesthesia PREOPERATIVE ANTIBIOTICS: 3 g of Ancef ESTIMATED BLOOD LOSS: 100 milliliters IMPLANTS: [place] Gamma 3 PREOPERATIVE NOTE AND INDICATIONS: This patient is a 62-year-old male with a left hip fracture as described previously. The recommendation was for stabilization of the hip to provide pain control and to help facilitate nursing care. The surgical plan was discussed with the patient. The risks, benefits, alternatives, and potential complications of this procedure were discussed with the patient including injury to veins, arteries, nerves, tendons, ligaments, and bone. Also discussed were the risks of infection, bleeding, pain, blood clots, the possible need for a blood transfusion, the possible need for further procedures, heart attack, stroke, and . Additional risks include malunion , nonunion, and hardware failure. All of this was explained in simple terms, and the patient verbalized understanding and wished to proceed. Consent was given to proceed with surgery. PROCEDURE: The patient was seen in the preoperative holding area where the identify and the consent were confirmed. The left hip was marked. Final questions were answered. The patient was brought back to the operating room. A huddle was performed with the patient and all vital surgical team members confirming patient identity, the correct procedure, and the correct operative site. Gen. anesthesia was administered. The patient was placed on the traction table and the left lower extremity placed in the fracture boot and the right lower extremity flexed and abducted out of the position. X-rays confirmed good position. The left lower extremity was prepped and draped in the usual sterile fashion. A surgical time out was performed immediately preceding the incision with all personnel in the operating room to confirm patient identity, the correct operative site and extremity, correct radiographic studies, availability of appropriate surgical equipment, and agreement on the planned procedure. A small incision was made proximal to greater trochanter and dissection proceeded down through the fascia. This was with great difficulty due to his morbid obesity. The pin was inserted in the proximal femur and the canal opened with a curved awl. Again this was with great difficulty. The ball- tipped guidewire was placed in the femur and reamed up to 11.5 mm in half millimeter increments beginning with 9 mm. The definitive 10 mm x 125 degree gamma 3 short nail nail was placed. A second incision was made and a guidewire placed into the femoral head, overdrilled, and the definitive lag screw placed. A third incision was made and a distal lock was placed. X-rays confirmed good position of the prosthesis. Wounds were irrigated and the skin closed with interrupted 3-0 Vicryl and jose a. Sterile dressing was applied and he was taken down from the traction table in good condition. The instrument, sponge, and needle counts were correct after wound closure. POST OPERATIVE PLAN: Weight Bearing: Weightbearing as tolerated to the left lower extremity. DVT Prophylaxis: Lovenox Activity: Activities as tolerated with assistance Wound Care: Daily dressing changes on postoperative day 2 Pain Control: Per the hospitalist Perioperative antibiotic prophylaxis: 2 doses of Ancef Social work for discharge planning Follow Up: 2 weeks
[2017-06-24] MEDS: CeFAZolin Syr 3,000MG/30 ML 3,000 MG/30 ML SYRINGE IVPB SCH (23:22)
[2017-06-25] MEDS: *HR* HYDROcodone/Acet 5/325 mg TABLET PO PRN ×4 (00:55→20:50)
[2017-06-25] MEDS: 0.9 % Sodium Chloride 1,000 ML IVC SCH ×2 (02:22→17:22)
[2017-06-25] MEDS: *HR* Morphine 2 MG/ML SYRINGE IVP PRN ×4 (02:27→22:54)
[2017-06-25] MEDS: Acetaminophen 325 MG TABLET PO PRN (03:52)
[2017-06-25] MEDS: *HR* Heparin 5,000 UNIT/ML VIAL SQ SCH ×2 (05:03→17:18)
[2017-06-25 07:04] LABS: Basophils % 0.2 %; Eosinophils # 0.2 K/mcL (0.0-0.6); Eosinophils % 1.3 %; Hemoglobin 11.1 g/dL (12.9-16.9); Immature Granulocytes % 0.4 % (0-4); Lymphocytes # 1.2 K/mcL (0.6-4.6); Lymphocytes % 9.6 %; Mean Corpuscular HGB Conc 32.6 g/dL (31.6-35.5); Mean Corpuscular Hemoglobin 29.4 pg (28.0-33.3); Mean Corpuscular Volume 89.9 fL (83.0-100.0); Mean Platelet Volume 9.9 fL (9.4-12.4); Monocytes # 1.1 K/mcL (0.0-1.3); Monocytes % 9.4 %; Neutrophils # 9.5 K/mcL (1.6-8.9); Platelet Count 154 K/mcL (140-400); Red Blood Count 3.78 M/mcL (4.19-5.50); Red Cell Distribution Width 12.8 % (11.5-14.5); Segmented Neutrophils % 79.1 %
[2017-06-25 07:10] LABS: Alanine Aminotransferase 13 Units/L (0-55); Albumin 2.6 g/dL (3.5-5.0); Albumin/Globulin Ratio 0.8 (1.1-2.2); Alkaline Phosphatase 83 Units/L (38-126); Aspartate Amino Transferase 14 Units/L (5-34); BUN/Creatinine Ratio 26 (6-26); Bilirubin,Total 0.7 mg/dL (0.2-1.2); Blood Urea Nitrogen 18 mg/dL (8-26); Calcium 7.9 mg/dL (8.6-10.8); Carbon Dioxide 21 mEq/L (19-29); Chloride 104 mEq/L (98-109); Globulin 3.3 g/dL (2.4-3.5); Glucose 102 mg/dL (70-99); Osmolality,Calculated 284 (280-300); Potassium 4.3 mEq/L (3.5-4.5); Sodium 136 mEq/L (136-145); Total Protein 5.9 g/dL (6.0-8.3); eGFR For African Americans > 60 (> 60); eGFR For Non-African Americans > 60 (> 60)
[2017-06-25] MEDS: Celecoxib 200 MG CAPSULE PO SCH ×2 (08:06→20:50)
[2017-06-25] MEDS: CeFAZolin Syr 3,000MG/30 ML 3,000 MG/30 ML SYRINGE IVPB SCH (08:14)
--- NOTE | 2017-06-25 09:41 | Internal Med Progress Note ---
<Ramírez Rdz - Last Filed: 06/25/17 13:52> Date of Encounter: 06/25/17 Time of Encounter: 09:35 - Assessment and plan (1) Closed left hip fracture Current Visit: Yes Status: Acute Assessment and plan: Left fracture S/P mechanical fall while attempting to transfer from wheelchair to electric chair. Surgical risk factors would include hypertension, history of SVT status post ablation 2 weeks ago And multiple sclerosis. Hemoglobin dropped from 14-12 likely secondary to hip fracture. - Blood pressure currently well controlled on beta sally. 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 - MS currently stable. - Patient has had prior intubations for right shoulder surgery and left lung surgery and denies any complications with anesthesia or intubation. Patient is a moderate risk for low risk surgery. Underwent LHC 06/24/2017; per cardiology: LHC: Mild non-obstructive disease in proximal D1, mid LAD, normal EF at 55%, pt is at moderate cardiovascualr risk for planned procedure. Right femoral access site closed with MINX, (collagen plug) closure device. Patient Tolerated Internal fixation of the left hip with medullary nailing 06/24. Management per Orthopedic surgery - Discharge when cleared by Orthopedics and therapy needs addressed. Qualifiers: Encounter type: subsequent encounter Fracture healing: with routine healing Qualified Code(s): S72.002D - Fracture of unspecified part of neck of left femur, subsequent encounter for closed fracture with routine healing (2) HTN (hypertension) Current Visit: Yes Status: Chronic Assessment and plan: Blood pressure is currently stable, continue Lopressor 50 mg by mouth twice a day. Qualifiers: Hypertension type: essential hypertension Qualified Code(s): I10 - Essential (primary) hypertension (3) Multiple sclerosis Current Visit: Yes Status: Chronic Assessment and plan: Patient has a history of MS, resulting in difficulty with walking and wheelchair -bound. Patient denies any recent flares. (4) Fall Current Visit: Yes Status: Acute Assessment and plan: Left fracture S/P mechanical fall while attempting to transfer from wheelchair to electric chair. Qualifiers: Encounter type: initial encounter Qualified Code(s): W19.XXXA - Unspecified fall, initial encounter (5) DVT prophylaxis Current Visit: Yes Status: Acute Assessment and plan: Subcutaneous heparin - Subjective Interval history: Mr. Yodit 62-year-old male seen in the patient bedside as morning. He is in stable condition post orthopedic intervention yesterday. He says he is feeling well and looking forward to discharge. He is tolerating PO intake and voiding appropriately. He is open for physical therapy if necessary. - Constitutional Vitals: Temp Pulse Resp BP Pulse Ox 98.9 F 78 17 134/72 94 06/25/17 07:02 06/25/17 07:02 06/25/17 07:02 06/25/17 07:02 06/25/17 08:18 General appearance: Present: cooperative, mild distress, A&O X 3, answers questions appropriately Internal Medicine: Result - Labs CBC & Chem 7: 06/25/17 06:45 06/25/17 06:45 Labs: Short CBC 06/25/17 Range/Units 06:45 WBC 12.0 H (4.3-11.1) K/mcL Hgb 11.1 L (12.9-16.9) g/dL Hct 34.0 L (37.5-50.1) % Plt Count 154 (140-400) K/mcL Neutrophils # 9.5 H (1.6-8.9) K/mcL BMP 06/25/17 06:45 Sodium 136 Potassium 4.3 Chloride 104 Carbon Dioxide 21 BUN 18 Creatinine 0.69 L Glucose 102 H Calcium 7.9 L Liver Function 06/25/17 Range/Units 06:45 Total Bilirubin 0.7 (0.2-1.2) mg/dL AST 14 (5-34) Units/L ALT 13 (0-55) Units/L Alkaline Phosphatase 83 (38-126) Units/L Albumin 2.6 L (3.5-5.0) g/dL - ABG Interpretation ABG results: PT/INR, D-dimer PT 11.8 Seconds (9.4-12.1) 06/23/17 15:10 - Impressions Impressions Fluoroscopy 06/24/17 00:00 IMPRESSION: Intraprocedural fluoroscopic spot images as above. See separate procedure report for more information. D/ / Mert Mtz MD / Mert Mtz MD Interpreting Provider: Mert Mtz MD Hip X-Ray 06/24/17 17:18 IMPRESSION: Status post ORIF of an acute traumatic nondisplaced intertrochanteric left hip fracture. D/ / Kelechi Colorado MD / Kelechi Colorado MD Interpreting Provider: Kelechi Colorado MD - VTE Documentation of Mechanical Device: Intermittent pneumatic compression device Consult Discharge Plan - Plan Referrals: Bhavana Rodriguez, [employer] [Primary Care Provider] - <Danis Lucio - Last Filed: 06/25/17 19:17> Date of Encounter: 06/25/17 - Assessment and plan (1) Closed left hip fracture Current Visit: Yes Status: Acute Qualifiers: Encounter type: subsequent encounter Fracture healing: with routine healing Qualified Code(s): S72.002D - Fracture of unspecified part of neck of left femur, subsequent encounter for closed fracture with routine healing (2) HTN (hypertension) Current Visit: Yes Status: Chronic Qualifiers: Hypertension type: essential hypertension Qualified Code(s): I10 - Essential (primary) hypertension (3) Multiple sclerosis Current Visit: Yes Status: Chronic (4) Hyperlipidemia Current Visit: No Status: Chronic Qualifiers: Hyperlipidemia type: mixed hyperlipidemia Qualified Code(s): E78.2 - Mixed hyperlipidemia (5) Morbid obesity Current Visit: Yes Status: Chronic - Constitutional Vitals: Temp Pulse Resp BP Pulse Ox 97.6 F 75 16 104/67 96 06/25/17 17:07 06/25/17 17:07 06/25/17 17:07 06/25/17 17:07 06/25/17 17:07 Internal Medicine: Result - Labs CBC & Chem 7: 06/25/17 06:45 06/25/17 06:45 Labs: Short CBC 06/25/17 Range/Units 06:45 WBC 12.0 H (4.3-11.1) K/mcL Hgb 11.1 L (12.9-16.9) g/dL Hct 34.0 L (37.5-50.1) % Plt Count 154 (140-400) K/mcL Neutrophils # 9.5 H (1.6-8.9) K/mcL BMP 06/25/17 06:45 Sodium 136 Potassium 4.3 Chloride 104 Carbon Dioxide 21 BUN 18 Creatinine 0.69 L Glucose 102 H Calcium 7.9 L Liver Function 06/25/17 Range/Units 06:45 Total Bilirubin 0.7 (0.2-1.2) mg/dL AST 14 (5-34) Units/L ALT 13 (0-55) Units/L Alkaline Phosphatase 83 (38-126) Units/L Albumin 2.6 L (3.5-5.0) g/dL - ABG Interpretation ABG results: PT/INR, D-dimer PT 11.8 Seconds (9.4-12.1) 06/23/17 15:10 - Attending Attestation I examined this patient and my medical decision-making was reviewed with the Resident Physician on 06/25/17. I agree with the documented findings, disposition and treatment plan as described except to the extent set forth below. Mr Monsivais is currently admitted for acute L hip fracture. He is s/p surgery. He remains moderate to high risk due to potential for worsening clinical status. Mr. Monsivais is resting comfortably. Pain appears to be controlled. No fever or chills. Exam Alert. Comfortable Mucus membranes dry Heart reg No wheeze Abd soft I/P 1. L hip fracture 2. MS Further diagnoses and plan as above. D/C when OK with ortho.
--- NOTE | 2017-06-25 18:33 | Orthopedics Progress Note ---
Date of Encounter: 06/25/17 Time of Encounter: 07:30 - Assessment and Plan (1) Closed left hip fracture Current Visit: Yes Status: Acute Qualifiers: Encounter type: subsequent encounter Fracture healing: with routine healing Qualified Code(s): S72.002D - Fracture of unspecified part of neck of left femur, subsequent encounter for closed fracture with routine healing Subjective Interval history: S: Resting in bed comfortably O: Afebrile and vital signs are stable Left lower extremity tender in the groin and proximal lateral thigh as expected No significant pain with passive movement of the left hip He can dorsiflex and plantar flex ankle and toes The foot is sensate and well-perfused A: Postoperative day 1 after internal fixation of the left hip P: Kee out today Lovenox for DVT prophylaxis Weightbearing as tolerated bilateral lower extremities Physical therapy for motion and ambulation Dressing change tomorrow Objective Vital signs: Vital Signs Temp Pulse Resp BP Pulse Ox 06/25/17 17:07 97.6 F 75 16 104/67 96 06/25/17 13:41 63 17 105/69 96 06/25/17 11:50 97.6 F 63 17 105/69 96 06/25/17 08:18 94 06/25/17 07:02 98.9 F 78 17 134/72 94 06/25/17 04:13 99.3 F 74 17 128/80 93 06/24/17 23:48 98.0 F 69 17 114/74 92 06/24/17 20:27 97.9 F 74 16 111/70 95 06/24/17 19:56 98.5 F 73 16 115/72 93 06/24/17 19:02 98.2 F 75 16 105/63 92 Intake and Output 06/25/17 06/25/17 06/25/17 07:59 15:59 23:59 Intake Total 330 / 330 1000 / 1000 Output Total 375 / 375 Balance -45 / -45 1000 / 1000 Intake: IV Fluids 30 / 30 1000 / 1000 0.9 % Sodium Chloride 1,000 ML 1000 / 1000 @ 100 mls/hr IVC .Q10H DEJA Rx#: [id number] Ancef Syringe 3,000 MG/30 ML 3, 30 / 30 000 mg In 30 ml @ 200 mls/hr IVPB Q8HR DEJA Rx#:[id number] Oral 300 / 300 Output: Catheter 375 / 375 - Labs CBC & BMP: 06/25/17 06:45 06/25/17 06:45 Labs: Abnormal lab results WBC 12.0 K/mcL (4.3-11.1) H 06/25/17 06:45 RBC 3.78 M/mcL (4.19-5.50) L 06/25/17 06:45 Hgb 11.1 g/dL (12.9-16.9) L 06/25/17 06:45 Hct 34.0 % (37.5-50.1) L 06/25/17 06:45 Neutrophils # 9.5 K/mcL (1.6-8.9) H 06/25/17 06:45 Creatinine 0.69 mg/dL (0.72-1.25) L 06/25/17 06:45 Glucose 102 mg/dL (70-99) H 06/25/17 06:45 Calcium 7.9 mg/dL (8.6-10.8) L 06/25/17 06:45 Creatine Kinase 345 Units/L (30-200) H D 06/23/17 05:00 Serum Total Protein 5.9 g/dL (6.0-8.3) L 06/25/17 06:45 Albumin 2.6 g/dL (3.5-5.0) L 06/25/17 06:45 Albumin/Globulin Ratio 0.8 (1.1-2.2) L 06/25/17 06:45 - VTE Documentation of Mechanical Device: Venous foot pump, device Consult Discharge Plan - Plan Referrals: Bhavana Rodriguez, [employer] [Primary Care Provider] -
[2017-06-26] MEDS: *HR* HYDROcodone/Acet 5/325 mg TABLET PO PRN ×4 (03:35→21:56)
[2017-06-26] MEDS: *HR* Enoxaparin 30 MG/0.3 ML SYRINGE SQ SCH ×2 (06:09→17:09)
[2017-06-26] MEDS: 0.9 % Sodium Chloride 1,000 ML IVC SCH (07:38)
[2017-06-26] MEDS: Celecoxib 200 MG CAPSULE PO SCH ×2 (07:46→20:11)
--- NOTE | 2017-06-26 08:00 | Orthopedics Progress Note ---
Date of Encounter: 06/26/17 Time of Encounter: 07:58 - Assessment and Plan (1) Closed left hip fracture Current Visit: Yes Status: Acute Qualifiers: Encounter type: subsequent encounter Fracture healing: with routine healing Qualified Code(s): S72.002D - Fracture of unspecified part of neck of left femur, subsequent encounter for closed fracture with routine healing Subjective Interval history: S: The patient sat up at the edge of the bed but had not ambulated. Pain is well-controlled O: Afebrile and vital signs are stable Left hip incisions are clean, dry, and intact. Mild pain with passive motion of the left hip He can dorsiflex and plantarflex ankle and toes The foot is sensate and well-perfused A: Internal fixation of the left hip P: Weightbearing as tolerated Physical therapy Daily dressing changes Orthopedically stable for discharge; Recommend rehabilitation facility Objective Vital signs: Vital Signs Temp Pulse Resp BP Pulse Ox 06/26/17 06:44 98.2 F 75 16 110/68 93 06/26/17 03:28 98.0 F 80 18 122/73 97 06/26/17 00:49 98.3 F 74 20 110/72 94 06/25/17 19:56 98.7 F 70 18 145/74 93 06/25/17 17:07 97.6 F 75 16 104/67 96 06/25/17 13:41 63 17 105/69 96 06/25/17 11:50 97.6 F 63 17 105/69 96 06/25/17 08:18 94 Intake and Output 06/25/17 06/25/17 06/26/17 15:59 23:59 07:59 Intake Total 1000 / 1000 1300 / 1300 Output Total 525 / 525 Balance 1000 / 1000 775 / 775 Intake: IV Fluids 1000 / 1000 900 / 900 0.9 % Sodium Chloride 1,000 ML 1000 / 1000 900 / 900 @ 100 mls/hr IVC .Q10H DEJA Rx#: [id number] Oral 400 / 400 Output: Straight Cath 525 / 525 - Labs CBC & BMP: 06/25/17 06:45 06/25/17 06:45 Labs: Abnormal lab results WBC 12.0 K/mcL (4.3-11.1) H 06/25/17 06:45 RBC 3.78 M/mcL (4.19-5.50) L 06/25/17 06:45 Hgb 11.1 g/dL (12.9-16.9) L 06/25/17 06:45 Hct 34.0 % (37.5-50.1) L 06/25/17 06:45 Neutrophils # 9.5 K/mcL (1.6-8.9) H 06/25/17 06:45 Creatinine 0.69 mg/dL (0.72-1.25) L 06/25/17 06:45 Glucose 102 mg/dL (70-99) H 06/25/17 06:45 Calcium 7.9 mg/dL (8.6-10.8) L 06/25/17 06:45 Creatine Kinase 345 Units/L (30-200) H D 06/23/17 05:00 Serum Total Protein 5.9 g/dL (6.0-8.3) L 06/25/17 06:45 Albumin 2.6 g/dL (3.5-5.0) L 06/25/17 06:45 Albumin/Globulin Ratio 0.8 (1.1-2.2) L 06/25/17 06:45 - VTE Documentation of Mechanical Device: Venous foot pump, device Consult Discharge Plan - Plan Additional Instructions: CUSTODIAL DISCHARGE INSTRUCTIONS Dr. Garcia PROCEDURE PERFORMED Reduction and fixation of left hip. Incision care -Daily dressing changes to the left hip with dry gauze and either paper tape or medipore tape. -Avoid soaking wound in water (no hot tubs, bathtubs, swimming pools). -May shower after 2 weeks from surgery date. Carefully wash incision with soap and water. Gently pat it dry. Don't rub the incision, or apply creams or lotions. Sit on a shower stool when showering to keep from falling. Weight bearing status -Weightbearing as tolerated to the bilateral lower extremities. Medications -Pain medication per the discharging medical doctor -Enteric coated aspirin 325 mg by mouth twice per day for 28 days from the date of the surgery. Other -Knee high MIKEL hose 23 hours per day -Consult physical and occupational therapy for mobilization. -Up to chair with assistance at least twice per day. -Follow up with your primary care physician to discuss testing for bone mineral density. Follow-up with Dr. Garcia at the office 2 weeks from the surgery date for a post operative evaluation. Call the office at [phone] to schedule appointment. Referrals: Bhavana Rodriguez, YANE [Primary Care Provider] -
--- NOTE | 2017-06-26 08:39 | Internal Med Progress Note ---
<Ramírez Rdz - Last Filed: 06/26/17 16:11> Date of Encounter: 06/26/17 Time of Encounter: 08:37 - Assessment and plan (1) Closed left hip fracture Current Visit: Yes Status: Acute Assessment and plan: Left fracture S/P mechanical fall while attempting to transfer from wheelchair to electric chair. Surgical risk factors would include hypertension, history of SVT status post ablation 2 weeks ago And multiple sclerosis. Hemoglobin dropped from 14-12 likely secondary to hip fracture. - Blood pressure currently well controlled on beta sally. 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 - MS currently stable. - Patient has had prior intubations for right shoulder surgery and left lung surgery and denies any complications with anesthesia or intubation. Patient is a moderate risk for low risk surgery. Underwent LHC 06/24/2017; per cardiology: LHC: Mild non-obstructive disease in proximal D1, mid LAD, normal EF at 55%, pt is at moderate cardiovascualr risk for planned procedure. Right femoral access site closed with MINX, (collagen plug) closure device. Patient Tolerated Internal fixation of the left hip with medullary nailing 06/24. 06/26: Stable, no acute changes Management per Orthopedic surgery - Discharge after acceptance by SNF Qualifiers: Encounter type: subsequent encounter Fracture healing: with routine healing Qualified Code(s): S72.002D - Fracture of unspecified part of neck of left femur, subsequent encounter for closed fracture with routine healing (2) HTN (hypertension) Current Visit: Yes Status: Chronic Assessment and plan: Blood pressure is currently stable, continue Lopressor 50 mg by mouth twice a day. Qualifiers: Hypertension type: essential hypertension Qualified Code(s): I10 - Essential (primary) hypertension (3) Multiple sclerosis Current Visit: Yes Status: Chronic Assessment and plan: Patient has a history of MS, resulting in difficulty with walking and wheelchair -bound. Patient denies any recent flares. (4) Fall Current Visit: Yes Status: Acute Assessment and plan: Left fracture S/P mechanical fall while attempting to transfer from wheelchair to electric chair. Qualifiers: Encounter type: initial encounter Qualified Code(s): W19.XXXA - Unspecified fall, initial encounter (5) Urinary retention Current Visit: Yes Status: Acute Assessment and plan: Patient demonstrates urinary retention, bladder scan with 400 mL's post void. Symptoms started after removal of Kee catheter. We will hold oxybutynin, patient to schedule attempts at using the urinal every 2 hours. Will continue straight catheter as needed. Continue Flomax. (6) DVT prophylaxis Current Visit: Yes Status: Acute Assessment and plan: Subcutaneous heparin - Subjective Interval history: Mr. Monsivais 62-year-old male seen in the patient bedside as morning. He is in stable condition with no acute changes overnight. He does say he is having difficulty with urination requiring straight catheter. He denies ever needing straight catheter prior to this episode. He noticed that this began after his Kee was removed. He states his pain is under control he is tolerating oral intake. No further concerns. - Constitutional Vitals: Temp Pulse Resp BP Pulse Ox 98.2 F 75 16 110/68 92 06/26/17 06:44 06/26/17 06:44 06/26/17 06:44 06/26/17 06:44 06/26/17 07:53 General appearance: Present: cooperative, mild distress, A&O X 3, answers questions appropriately Exam: General: Patient alert, awake, oriented 3, interactive, in no acute distress HEENT: Normocephalic, atraumatic, pupils equal reactive to light, nasal cavity patent and open septum median position, oral mucosa moist, uvula midline, neck supple trachea midline no palpable lymphadenopathy, no thyromegaly. Chest: Symmetric bilateral correlating with respiratory effort, effort nonlabored. Cardiac: Regular rate and rhythm, positive S1 and S2. no bruits appreciated bilateral carotids, Radial pulses 2+ bilateral, posterior tibial and dorsal pedal pulses 2+ bilateral. Respiratory: Clear to auscultation all lung wilson Abdomen: Soft, nontender, positive bowel sounds, no palpable masses appreciated on examination Extremities: Bilateral dependent edema, bilateral lower extremities symmetric, left hip demonstrates healing postsurgical wound. Neurovascular intact Neurologic: No focal deficits appreciated on examination. Face symmetric, muscle strength symmetric bilateral upper and lower extremities. Internal Medicine: Result - Labs CBC & Chem 7: 06/25/17 06:45 06/25/17 06:45 - ABG Interpretation ABG results: PT/INR, D-dimer PT 11.8 Seconds (9.4-12.1) 06/23/17 15:10 - VTE Documentation of Mechanical Device: Venous foot pump, device Consult Discharge Plan - Plan Additional Instructions: LONG-TERM DISCHARGE INSTRUCTIONS Dr. Garcia PROCEDURE PERFORMED Reduction and fixation of left hip. Incision care -Daily dressing changes to the left hip with dry gauze and either paper tape or medipore tape. -Avoid soaking wound in water (no hot tubs, bathtubs, swimming pools). -May shower after 2 weeks from surgery date. Carefully wash incision with soap and water. Gently pat it dry. Don't rub the incision, or apply creams or lotions. Sit on a shower stool when showering to keep from falling. Weight bearing status -Weightbearing as tolerated to the bilateral lower extremities. Medications -Pain medication per the discharging medical doctor -Enteric coated aspirin 325 mg by mouth twice per day for 28 days from the date of the surgery. Other -Knee high MIKEL hose 23 hours per day -Consult physical and occupational therapy for mobilization. -Up to chair with assistance at least twice per day. -Follow up with your primary care physician to discuss testing for bone mineral density. Follow-up with Dr. Garcia at the office 2 weeks from the surgery date for a post operative evaluation. Call the office at [phone] to schedule appointment. Referrals: Bhavana Rodriguez, CLINICAL STAFF ANESTHESIOLOGIST [Primary Care Provider] - <Danis Lucio - Last Filed: 06/26/17 18:23> Date of Encounter: 06/26/17 - Assessment and plan (1) Closed left hip fracture Current Visit: Yes Status: Acute Qualifiers: Encounter type: subsequent encounter Fracture healing: with routine healing Qualified Code(s): S72.002D - Fracture of unspecified part of neck of left femur, subsequent encounter for closed fracture with routine healing (2) HTN (hypertension) Current Visit: Yes Status: Chronic Qualifiers: Hypertension type: essential hypertension Qualified Code(s): I10 - Essential (primary) hypertension (3) Multiple sclerosis Current Visit: Yes Status: Chronic (4) Hyperlipidemia Current Visit: No Status: Chronic Qualifiers: Hyperlipidemia type: mixed hyperlipidemia Qualified Code(s): E78.2 - Mixed hyperlipidemia (5) Morbid obesity Current Visit: Yes Status: Chronic - Constitutional Vitals: Temp Pulse Resp BP Pulse Ox 98.5 F 82 16 115/73 95 06/26/17 13:53 06/26/17 13:53 06/26/17 13:53 06/26/17 13:53 06/26/17 13:53 Internal Medicine: Result - Labs CBC & Chem 7: 06/25/17 06:45 06/25/17 06:45 - ABG Interpretation ABG results: PT/INR, D-dimer PT 11.8 Seconds (9.4-12.1) 06/23/17 15:10 - Attending Attestation I examined this patient and my medical decision-making was reviewed with the Resident Physician on 06/26/17. I agree with the documented findings, disposition and treatment plan as described except to the extent set forth below. Mr Monsivais is currently admitted for acute L hip fracture. He is awaiting precert for SNF. He remains moderate risk due to potential for worsening clinical status. Mr Monsivais is resting comfortably. His pain is up and down but OK now. No fever or chills. No CP or SOB. Awaiting precert. Exam Alert. Comfortable Mucus membranes dry Heart reg No wheeze Abd soft I/P 1. L hip fracture 2. MS Further diagnoses and plan as above.
[2017-06-26] MEDS: Furosemide 20 MG TABLET PO PRN (18:09)
[2017-06-26] MEDS: Acetaminophen 325 MG TABLET PO PRN (20:11)
[2017-06-27] MEDS: *HR* HYDROcodone/Acet 5/325 mg TABLET PO PRN ×4 (04:12→22:22)
[2017-06-27] MEDS: *HR* Enoxaparin 30 MG/0.3 ML SYRINGE SQ SCH ×2 (05:28→18:07)
[2017-06-27] MEDS: Celecoxib 200 MG CAPSULE PO SCH ×2 (09:42→22:21)
--- NOTE | 2017-06-27 09:57 | Orthopedics Progress Note ---
Date of Encounter: 06/27/17 Time of Encounter: 09:56 - Assessment and Plan (1) Closed left hip fracture Current Visit: Yes Status: Acute Qualifiers: Encounter type: subsequent encounter Fracture healing: with routine healing Qualified Code(s): S72.002D - Fracture of unspecified part of neck of left femur, subsequent encounter for closed fracture with routine healing Subjective Interval history: S: Slow to progress with therapy Pain controlled O: Afebrile and vital signs are stable Left hip incisions are clean, dry, and intact. Mild pain with passive motion of the left hip He can dorsiflex and plantarflex ankle and toes The foot is sensate and well-perfused A: Internal fixation of the left hip P: Weightbearing as tolerated Physical therapy Daily dressing changes Orthopedically stable for discharge; Recommend rehabilitation facility Objective Vital signs: Vital Signs Temp Pulse Resp BP Pulse Ox 06/27/17 07:08 98.3 F 76 20 127/80 92 06/27/17 05:19 97.9 F 78 20 128/73 92 06/26/17 23:59 98.8 F 77 16 114/58 91 06/26/17 21:52 98.5 F 90 18 95 06/26/17 20:10 92 109/59 06/26/17 13:53 98.5 F 82 16 115/73 95 06/26/17 12:10 98.5 F 80 16 110/71 95 Intake and Output 06/26/17 06/27/17 06/27/17 23:59 07:59 15:59 Intake Total 540 / 540 Output Total 0 / 0 200 / 200 Balance 540 / 540 -200 / -200 Intake: Oral 540 / 540 Output: Urine 0 / 0 200 / 200 Other: Meal Dinner Percent of Meal Consumed 95% # Voids 1 - Labs CBC & BMP: 06/25/17 06:45 06/25/17 06:45 Labs: Abnormal lab results WBC 12.0 K/mcL (4.3-11.1) H 06/25/17 06:45 RBC 3.78 M/mcL (4.19-5.50) L 06/25/17 06:45 Hgb 11.1 g/dL (12.9-16.9) L 06/25/17 06:45 Hct 34.0 % (37.5-50.1) L 06/25/17 06:45 Neutrophils # 9.5 K/mcL (1.6-8.9) H 06/25/17 06:45 Creatinine 0.69 mg/dL (0.72-1.25) L 06/25/17 06:45 Glucose 102 mg/dL (70-99) H 06/25/17 06:45 Calcium 7.9 mg/dL (8.6-10.8) L 06/25/17 06:45 Creatine Kinase 345 Units/L (30-200) H D 06/23/17 05:00 Serum Total Protein 5.9 g/dL (6.0-8.3) L 06/25/17 06:45 Albumin 2.6 g/dL (3.5-5.0) L 06/25/17 06:45 Albumin/Globulin Ratio 0.8 (1.1-2.2) L 06/25/17 06:45 - VTE Documentation of Mechanical Device: Venous foot pump, device Consult Discharge Plan - Plan Additional Instructions: NURSING HOME DISCHARGE INSTRUCTIONS Dr. Garcia PROCEDURE PERFORMED Reduction and fixation of left hip. Incision care -Daily dressing changes to the left hip with dry gauze and either paper tape or medipore tape. -Avoid soaking wound in water (no hot tubs, bathtubs, swimming pools). -May shower after 2 weeks from surgery date. Carefully wash incision with soap and water. Gently pat it dry. Don't rub the incision, or apply creams or lotions. Sit on a shower stool when showering to keep from falling. Weight bearing status -Weightbearing as tolerated to the bilateral lower extremities. Medications -Pain medication per the discharging medical doctor -Lovenox 30 mg sq every 12 hours for DVT prophylaxis x 28 days from day of surgery. Other -Knee high MIKEL hose 23 hours per day -Consult physical and occupational therapy for mobilization. -Up to chair with assistance at least twice per day. -Follow up with your primary care physician to discuss testing for bone mineral density. Follow-up with Dr. Garcia at the office 2 weeks from the surgery date for a post operative evaluation. Call the office at [phone] to schedule appointment. Referrals: Bhavana Rodriguez, PUBLIC HEALTH ANALYST [Primary Care Provider] -
--- NOTE | 2017-06-27 11:01 | Internal Med Progress Note ---
Date of Encounter: 06/27/17 Time of Encounter: 10:00 - Assessment and plan (1) Closed left hip fracture Current Visit: Yes Status: Acute Assessment and plan: Pt is doing OK post operatively. He is awaiting precert for SNF. Continue plan per PT and ortho. Pain control. Qualifiers: Encounter type: subsequent encounter Fracture healing: with routine healing Qualified Code(s): S72.002D - Fracture of unspecified part of neck of left femur, subsequent encounter for closed fracture with routine healing (2) HTN (hypertension) Current Visit: Yes Status: Chronic Assessment and plan: Controlled. Continue current medications. Qualifiers: Hypertension type: essential hypertension Qualified Code(s): I10 - Essential (primary) hypertension (3) Multiple sclerosis Current Visit: Yes Status: Chronic Assessment and plan: Patient has a history of MS, resulting in difficulty with walking and wheelchair -bound. Patient denies any recent flares. (4) Urinary retention Current Visit: Yes Status: Acute Assessment and plan: Continue monitoring and will replace woods if needed. (5) Hyperlipidemia Current Visit: No Status: Chronic Assessment and plan: Chronic issue. Qualifiers: Hyperlipidemia type: mixed hyperlipidemia Qualified Code(s): E78.2 - Mixed hyperlipidemia (6) Insomnia Current Visit: No Status: Acute Assessment and plan: PRN Ambien started. Qualifiers: Insomnia type: due to medical condition Qualified Code(s): G47.01 - Insomnia due to medical condition (7) Morbid obesity Current Visit: Yes Status: Chronic Assessment and plan: Chronic issue - Subjective Interval history: Mr Monsivais is currently admitted for acute L hip fracture. He is awaiting precert for rehab. He remains moderate risk due to potential for worsening clinical status. Mr Monsivais did not sleep well last night. Pain controlled with medications. No fever or chills. bringing electric chair for him. Appetite OK today. Awaiting precert for rehab - hopefully will go through on Thursday. - Constitutional Vitals: Temp Pulse Resp BP Pulse Ox 98.3 F 76 20 127/80 92 06/27/17 07:08 06/27/17 07:08 06/27/17 07:08 06/27/17 07:08 06/27/17 07:08 General appearance: Present: cooperative, A&O X 3, answers questions appropriately - Head Head exam: Present: atraumatic, normocephalic - Eye Eye exam: Present: EOMI, conjuntiva pink - ENT ENT exam: Present: mucous membranes moist - Respiratory Respiratory exam: Present: decreased breath sounds, CTAB. Absent: rales, rhonchi, wheezes - Cardiovascular Cardiovascular exam: Present: RRR. Absent: tachycardia - GI/Abdominal GI/Abdominal exam: Present: normal bowel sounds, soft. Absent: tenderness - Extremities Exam Extremities exam: Present: warm. Absent: tenderness - Neurological Exam Neurological exam: Present: alert, oriented X3 - Skin Skin exam: Present: dry, warm. Absent: rash Internal Medicine: Result - Labs CBC & Chem 7: 06/25/17 06:45 06/25/17 06:45 - ABG Interpretation ABG results: PT/INR, D-dimer PT 11.8 Seconds (9.4-12.1) 06/23/17 15:10 - VTE Documentation of Mechanical Device: Venous foot pump, device Consult Discharge Plan - Plan Additional Instructions: CUSTODIAL DISCHARGE INSTRUCTIONS Dr. Garcia PROCEDURE PERFORMED Reduction and fixation of left hip. Incision care -Daily dressing changes to the left hip with dry gauze and either paper tape or medipore tape. -Avoid soaking wound in water (no hot tubs, bathtubs, swimming pools). -May shower after 2 weeks from surgery date. Carefully wash incision with soap and water. Gently pat it dry. Don't rub the incision, or apply creams or lotions. Sit on a shower stool when showering to keep from falling. Weight bearing status -Weightbearing as tolerated to the bilateral lower extremities. Medications -Pain medication per the discharging medical doctor -Lovenox 30 mg sq every 12 hours for DVT prophylaxis x 28 days from day of surgery. Other -Knee high MIKEL hose 23 hours per day -Consult physical and occupational therapy for mobilization. -Up to chair with assistance at least twice per day. -Follow up with your primary care physician to discuss testing for bone mineral density. Follow-up with Dr. Garcia at the office 2 weeks from the surgery date for a post operative evaluation. Call the office at [phone] to schedule appointment. Referrals: Bhavana Rodriguez, PLANT SCIENCE PROFESSOR [Primary Care Provider] -
[2017-06-27] MEDS: Furosemide 20 MG TABLET PO PRN (18:06)
[2017-06-28] MEDS: *HR* Enoxaparin 30 MG/0.3 ML SYRINGE SQ SCH ×2 (06:28→18:19)
[2017-06-28] MEDS: *HR* HYDROcodone/Acet 5/325 mg TABLET PO PRN ×2 (06:29→20:01)
[2017-06-28 07:24] LABS: Alanine Aminotransferase 12 Units/L (0-55); Albumin 2.4 g/dL (3.5-5.0); Albumin/Globulin Ratio 0.7 (1.1-2.2); Alkaline Phosphatase 86 Units/L (38-126); Aspartate Amino Transferase 17 Units/L (5-34); BUN/Creatinine Ratio 19 (6-26); Bilirubin,Total 0.7 mg/dL (0.2-1.2); Blood Urea Nitrogen 13 mg/dL (8-26); Carbon Dioxide 25 mEq/L (19-29); Chloride 105 mEq/L (98-109); Globulin 3.4 g/dL (2.4-3.5); Glucose 95 mg/dL (70-99); Magnesium 1.7 mg/dL (1.6-2.6); Osmolality,Calculated 284 (280-300); Potassium 3.8 mEq/L (3.5-4.5); Sodium 137 mEq/L (136-145); Total Protein 5.8 g/dL (6.0-8.3); eGFR For African Americans > 60 (> 60); eGFR For Non-African Americans > 60 (> 60)
[2017-06-28 07:29] LABS: Hematocrit 29.8 % (37.5-50.1); Hemoglobin 9.9 g/dL (12.9-16.9); Mean Corpuscular HGB Conc 33.2 g/dL (31.6-35.5); Mean Corpuscular Hemoglobin 29.2 pg (28.0-33.3); Mean Corpuscular Volume 87.9 fL (83.0-100.0); Mean Platelet Volume 9.8 fL (9.4-12.4); Platelet Count 170 K/mcL (140-400); Red Blood Count 3.39 M/mcL (4.19-5.50); Red Cell Distribution Width 13.1 % (11.5-14.5)
--- NOTE | 2017-06-28 09:03 | Orthopedics Progress Note ---
Date of Encounter: 06/28/17 Time of Encounter: 09:02 - Assessment and Plan (1) Closed left hip fracture Current Visit: Yes Status: Acute Qualifiers: Encounter type: subsequent encounter Fracture healing: with routine healing Qualified Code(s): S72.002D - Fracture of unspecified part of neck of left femur, subsequent encounter for closed fracture with routine healing Subjective Interval history: S: Slow to progress with therapy Pain controlled O: Afebrile and vital signs are stable Left hip incisions are clean, dry, and intact. Mild pain with passive motion of the left hip He can dorsiflex and plantarflex ankle and toes The foot is sensate and well-perfused A: Internal fixation of the left hip P: Weightbearing as tolerated Physical therapy Daily dressing changes Orthopedically stable for discharge; Recommend rehabilitation facility Objective Vital signs: Vital Signs Temp Pulse Resp BP Pulse Ox 06/28/17 07:02 98.4 F 105 16 129/82 93 06/28/17 00:36 99.3 F 109 15 108/62 87 06/27/17 20:28 82 16 149/81 90 06/27/17 11:50 97.6 F 72 20 115/74 91 Intake and Output 06/27/17 06/28/17 06/28/17 23:59 07:59 15:59 Intake Total 0 / 0 0 / 0 Output Total 550 / 550 350 / 350 525 / 525 Balance -550 / -550 -350 / -350 -525 / -525 Intake: Oral 0 / 0 0 / 0 Output: Urine 550 / 550 350 / 350 525 / 525 Other: # Voids 0 # Bowel Movements 0 Weight 127.459 kg Patient Weight 06/28/17 23:59 Weight 127.459 kg - Labs CBC & BMP: 06/28/17 07:02 06/28/17 07:02 Labs: Abnormal lab results RBC 3.39 M/mcL (4.19-5.50) L 06/28/17 07:02 Hgb 9.9 g/dL (12.9-16.9) L 06/28/17 07:02 Hct 29.8 % (37.5-50.1) L 06/28/17 07:02 Neutrophils # 9.5 K/mcL (1.6-8.9) H 06/25/17 06:45 Creatinine 0.67 mg/dL (0.72-1.25) L 06/28/17 07:02 Calcium 8.0 mg/dL (8.6-10.8) L 06/28/17 07:02 Creatine Kinase 345 Units/L (30-200) H D 06/23/17 05:00 Serum Total Protein 5.8 g/dL (6.0-8.3) L 06/28/17 07:02 Albumin 2.4 g/dL (3.5-5.0) L 06/28/17 07:02 Albumin/Globulin Ratio 0.7 (1.1-2.2) L 06/28/17 07:02 - VTE Documentation of Mechanical Device: Venous foot pump, device Consult Discharge Plan - Plan Additional Instructions: LONGTERM DISCHARGE INSTRUCTIONS Dr. Garcia PROCEDURE PERFORMED Reduction and fixation of left hip. Incision care -Daily dressing changes to the left hip with dry gauze and either paper tape or medipore tape. -Avoid soaking wound in water (no hot tubs, bathtubs, swimming pools). -May shower after 2 weeks from surgery date. Carefully wash incision with soap and water. Gently pat it dry. Don't rub the incision, or apply creams or lotions. Sit on a shower stool when showering to keep from falling. Weight bearing status -Weightbearing as tolerated to the bilateral lower extremities. Medications -Pain medication per the discharging medical doctor -Lovenox 30 mg sq every 12 hours for DVT prophylaxis x 28 days from day of surgery. Other -Knee high MIKEL hose 23 hours per day -Consult physical and occupational therapy for mobilization. -Up to chair with assistance at least twice per day. -Follow up with your primary care physician to discuss testing for bone mineral density. Follow-up with Dr. Garcia at the office 2 weeks from the surgery date for a post operative evaluation. Call the office at [phone] to schedule appointment. Referrals: Bhavana Rodriguez, W[employer]ED [employer] [Primary Care Provider] -
[2017-06-28] MEDS: Celecoxib 200 MG CAPSULE PO SCH ×2 (09:16→20:01)
--- NOTE | 2017-06-28 10:10 | Internal Med Progress Note ---
Date of Encounter: 06/28/17 Time of Encounter: 09:15 - Assessment and plan (1) Anemia Current Visit: Yes Status: Acute Assessment and plan: Monitoring. No need for transfusion at this time. Most likely related to acute hip fracture. Qualifiers: Anemia type: other cause Other causes of anemia: acute posthemorrhagic Qualified Code(s): D62 - Acute posthemorrhagic anemia (2) Closed left hip fracture Current Visit: Yes Status: Acute Assessment and plan: No new acute issues. Awaiting precert for rehab. Hopefully d/c tomorrow. Qualifiers: Encounter type: subsequent encounter Fracture healing: with routine healing Qualified Code(s): S72.002D - Fracture of unspecified part of neck of left femur, subsequent encounter for closed fracture with routine healing (3) HTN (hypertension) Current Visit: Yes Status: Chronic Assessment and plan: Controlled. Continue current medications. Qualifiers: Hypertension type: essential hypertension Qualified Code(s): I10 - Essential (primary) hypertension (4) Multiple sclerosis Current Visit: Yes Status: Chronic Assessment and plan: Patient has a history of MS, resulting in difficulty with walking and wheelchair -bound. Patient denies any recent flares. (5) Urinary retention Current Visit: Yes Status: Acute Assessment and plan: Continue monitoring and will replace woods if needed. (6) Hyperlipidemia Current Visit: No Status: Chronic Assessment and plan: Chronic issue. Qualifiers: Hyperlipidemia type: mixed hyperlipidemia Qualified Code(s): E78.2 - Mixed hyperlipidemia (7) Insomnia Current Visit: No Status: Acute Assessment and plan: PRN Ambien started. Qualifiers: Insomnia type: due to medical condition Qualified Code(s): G47.01 - Insomnia due to medical condition (8) Morbid obesity Current Visit: Yes Status: Chronic Assessment and plan: Chronic issue - Subjective Interval history: Mr Monsivais is currently admitted for acute L hip fracture. He is awaiting precert for rehab. He remains moderate risk due to potential for worsening clinical status. Mr Monsivais feels OK. No new issues overnight. Pain is OK right now. Awaiting precert for rehab. Hopefully will be able to go tomorrow. - Constitutional Vitals: Temp Pulse Resp BP Pulse Ox 98.4 F 105 16 129/82 93 06/28/17 07:02 06/28/17 07:02 06/28/17 07:02 06/28/17 07:02 06/28/17 07:02 General appearance: Present: cooperative, A&O X 3, answers questions appropriately - Head Head exam: Present: atraumatic, normocephalic - Eye Eye exam: Present: EOMI, conjuntiva pink - ENT ENT exam: Present: mucous membranes dry - Respiratory Respiratory exam: Present: decreased breath sounds, CTAB. Absent: rales, rhonchi, wheezes - Cardiovascular Cardiovascular exam: Present: RRR. Absent: tachycardia - GI/Abdominal GI/Abdominal exam: Present: normal bowel sounds, soft. Absent: tenderness - Extremities Exam Extremities exam: Present: warm. Absent: tenderness - Neurological Exam Neurological exam: Present: alert, oriented X3 - Skin Skin exam: Present: warm. Absent: rash Internal Medicine: Result - Labs CBC & Chem 7: 06/28/17 07:02 06/28/17 07:02 Labs: Short CBC 06/28/17 Range/Units 07:02 WBC 7.7 (4.3-11.1) K/mcL Hgb 9.9 L (12.9-16.9) g/dL Hct 29.8 L (37.5-50.1) % Plt Count 170 (140-400) K/mcL BMP 06/28/17 07:02 Sodium 137 Potassium 3.8 Chloride 105 Carbon Dioxide 25 BUN 13 Creatinine 0.67 L Glucose 95 Calcium 8.0 L Liver Function 06/28/17 Range/Units 07:02 Total Bilirubin 0.7 (0.2-1.2) mg/dL AST 17 (5-34) Units/L ALT 12 (0-55) Units/L Alkaline Phosphatase 86 (38-126) Units/L Albumin 2.4 L (3.5-5.0) g/dL - ABG Interpretation ABG results: PT/INR, D-dimer PT 11.8 Seconds (9.4-12.1) 06/23/17 15:10 - VTE Documentation of Mechanical Device: Venous foot pump, device Consult Discharge Plan - Plan Additional Instructions: RESIDENTIAL DISCHARGE INSTRUCTIONS Dr. Garcia PROCEDURE PERFORMED Reduction and fixation of left hip. Incision care -Daily dressing changes to the left hip with dry gauze and either paper tape or medipore tape. -Avoid soaking wound in water (no hot tubs, bathtubs, swimming pools). -May shower after 2 weeks from surgery date. Carefully wash incision with soap and water. Gently pat it dry. Don't rub the incision, or apply creams or lotions. Sit on a shower stool when showering to keep from falling. Weight bearing status -Weightbearing as tolerated to the bilateral lower extremities. Medications -Pain medication per the discharging medical doctor -Lovenox 30 mg sq every 12 hours for DVT prophylaxis x 28 days from day of surgery. Other -Knee high MIKEL hose 23 hours per day -Consult physical and occupational therapy for mobilization. -Up to chair with assistance at least twice per day. -Follow up with your primary care physician to discuss testing for bone mineral density. Follow-up with Dr. Garcia at the office 2 weeks from the surgery date for a post operative evaluation. Call the office at [phone] to schedule appointment. Referrals: Bhavana Rodriguez CNP [Primary Care Provider] -
[2017-06-28] MEDS: Furosemide 20 MG TABLET PO PRN (10:41)
[2017-06-28] MEDS ORDERED: Furosemide 20 MG/2 ML VIAL IVP ONE (18:49)
[2017-06-28 19:02] LABS: Bilirubin,Urine Negative (Negative); Blood,Urine Negative (Negative); Clarity,Urine Clear (Clear); Color,Urine Yellow (Yellow); Glucose,Urine (UA) Normal (Normal); Ketones,Urine Trace mg/dL (Negative); Leukocyte Esterase,Urine Negative (Negative); Nitrite,Urine Negative (Negative); PH,Urine 7.5 pH Units (5.0-8.0); Protein,Urine Negative (Neg-Trace); Specific Gravity,Urine 1.011 (1.010-1.025); Urobilinogen,Urine Normal (Normal)
[2017-06-29] MEDS: *HR* HYDROcodone/Acet 5/325 mg TABLET PO PRN ×4 (00:02→21:00)
[2017-06-29] MEDS: *HR* Enoxaparin 30 MG/0.3 ML SYRINGE SQ SCH ×2 (05:56→17:33)
[2017-06-29] MEDS: Celecoxib 200 MG CAPSULE PO SCH ×2 (09:02→20:48)
[2017-06-29] MEDS: Furosemide 20 MG TABLET PO PRN (13:12)
--- NOTE | 2017-06-29 14:36 | Electrocardiograph Report ---
[address] [address] Test Date: 2017-06-26 Pat Name: César Monsivais Department: 114 Room: [facility] Gender: M Electronic Security Specialist: : 1955 Requested By: Danis Lucio Order Number: [id number] Reading MD: César Merino Measurements Intervals [place] Rate: 78 P: -6 [place]: 147 QRS: -28 QRSD: 91 T: -31 QT: 374 QTc: 407 Interpretive Statements SINUS RHYTHM BORDERLINE LEFT AXIS DEVIATION NONSPECIFIC ST & T-WAVE ABNORMALITY Electronically Signed On 06-29-2017 14:34:04 EST by César Merino
--- NOTE | 2017-06-29 15:04 | Internal Med Progress Note ---
<Ramírez Rdz - Last Filed: 06/29/17 15:02> Date of Encounter: 06/29/17 Time of Encounter: 08:30 - Assessment and plan (1) Closed left hip fracture Current Visit: Yes Status: Acute Assessment and plan: No new acute issues. Awaiting precert for rehab. 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 Qualifiers: Encounter type: subsequent encounter Fracture healing: with routine healing Qualified Code(s): S72.002D - Fracture of unspecified part of neck of left femur, subsequent encounter for closed fracture with routine healing (2) HTN (hypertension) Current Visit: Yes Status: Chronic Assessment and plan: Controlled. Patient's home medication includes metoprolol 50 mg by mouth twice a day, continue this inpatient. Qualifiers: Hypertension type: essential hypertension Qualified Code(s): I10 - Essential (primary) hypertension (3) Multiple sclerosis Current Visit: Yes Status: Chronic Assessment and plan: Patient has a history of MS, resulting in difficulty with walking and wheelchair -bound. Patient denies any recent flares. (4) Fall Current Visit: Yes Status: Acute Assessment and plan: Left fracture S/P mechanical fall while attempting to transfer from wheelchair to electric chair. Qualifiers: Encounter type: initial encounter Qualified Code(s): W19.XXXA - Unspecified fall, initial encounter (5) Urinary retention Current Visit: Yes Status: Acute Assessment and plan: Continue monitoring. No change and needs currently. (6) Insomnia Current Visit: No Status: Acute Assessment and plan: Patient has by mouth and Ambien 5 mg daily at bedtime. Qualifiers: Insomnia type: due to medical condition Qualified Code(s): G47.01 - Insomnia due to medical condition (7) DVT prophylaxis Current Visit: Yes Status: Acute Assessment and plan: Subcutaneous heparin - Subjective Interval history: Mr. Monsivais 62-year-old male seen in the patient bedside as morning. He is in stable condition with no acute changes overnight. He is awaiting placement for short-term rehabilitation. - Constitutional Vitals: Temp Pulse Resp BP Pulse Ox 97.6 F 77 16 139/70 93 06/29/17 11:48 06/29/17 11:48 06/29/17 11:48 06/29/17 11:48 06/29/17 11:48 General appearance: Present: cooperative, A&O X 3, answers questions appropriately Exam: General: Patient alert, awake, oriented 3, interactive, in no acute distress HEENT: Normocephalic, atraumatic, pupils equal reactive to light, nasal cavity patent and open septum median position, oral mucosa moist, uvula midline, neck supple trachea midline no palpable lymphadenopathy, no thyromegaly. Chest: Symmetric bilateral correlating with respiratory effort, effort nonlabored. Cardiac: Regular rate and rhythm, positive S1 and S2. no bruits appreciated bilateral carotids, Radial pulses 2+ bilateral, posterior tibial and dorsal pedal pulses 2+ bilateral. Respiratory: Clear to auscultation all lung wilson Abdomen: Soft, nontender, positive bowel sounds, no palpable masses appreciated on examination Extremities: Bilateral dependent edema, bilateral lower extremities symmetric, left hip demonstrates healing postsurgical wound. Neurovascular intact Neurologic: No focal deficits appreciated on examination. Face symmetric, muscle strength symmetric bilateral upper and lower extremities. Internal Medicine: Result - Labs CBC & Chem 7: 06/28/17 07:02 06/28/17 07:02 Labs: Urine 06/28/17 Range/Units 18:45 Urine Color Yellow (Yellow) Urine Clarity Clear (Clear) Urine pH 7.5 (5.0-8.0) pH Units Ur Specific [place] 1.011 (1.010-1.025) Urine Protein Negative (Neg-Trace) mg/dL Urine Glucose (UA) Normal (Normal) mg/dL - ABG Interpretation ABG results: PT/INR, D-dimer PT 11.8 Seconds (9.4-12.1) 06/23/17 15:10 - VTE Documentation of Mechanical Device: Graduated compression elastic hosiery Consult Discharge Plan - Plan Additional Instructions: HALF-WAY DISCHARGE INSTRUCTIONS Dr. Garcia PROCEDURE PERFORMED Reduction and fixation of left hip. Incision care -Daily dressing changes to the left hip with dry gauze and either paper tape or medipore tape. -Avoid soaking wound in water (no hot tubs, bathtubs, swimming pools). -May shower after 2 weeks from surgery date. Carefully wash incision with soap and water. Gently pat it dry. Don't rub the incision, or apply creams or lotions. Sit on a shower stool when showering to keep from falling. Weight bearing status -Weightbearing as tolerated to the bilateral lower extremities. Medications -Pain medication per the discharging medical doctor -Lovenox 30 mg sq every 12 hours for DVT prophylaxis x 28 days from day of surgery. Other -Knee high MIKEL hose 23 hours per day -Consult physical and occupational therapy for mobilization. -Up to chair with assistance at least twice per day. -Follow up with your primary care physician to discuss testing for bone mineral density. Follow-up with Dr. Garcia at the office 2 weeks from the surgery date for a post operative evaluation. Call the office at [phone] to schedule appointment. Referrals: Bhavana Rodriguez, RAIL OPERATIONS CONTROLLER [Primary Care Provider] - <Danis Lucio - Last Filed: 06/29/17 15:45> Date of Encounter: 06/29/17 - Assessment and plan (1) Anemia Current Visit: Yes Status: Acute Qualifiers: Anemia type: other cause Other causes of anemia: acute posthemorrhagic Qualified Code(s): D62 - Acute posthemorrhagic anemia (2) Closed left hip fracture Current Visit: Yes Status: Acute Qualifiers: Encounter type: subsequent encounter Fracture healing: with routine healing Qualified Code(s): S72.002D - Fracture of unspecified part of neck of left femur, subsequent encounter for closed fracture with routine healing (3) HTN (hypertension) Current Visit: Yes Status: Chronic Qualifiers: Hypertension type: essential hypertension Qualified Code(s): I10 - Essential (primary) hypertension (4) Multiple sclerosis Current Visit: Yes Status: Chronic (5) Urinary retention Current Visit: Yes Status: Acute (6) Hyperlipidemia Current Visit: No Status: Chronic Qualifiers: Hyperlipidemia type: mixed hyperlipidemia Qualified Code(s): E78.2 - Mixed hyperlipidemia (7) Insomnia Current Visit: No Status: Acute Qualifiers: Insomnia type: due to medical condition Qualified Code(s): G47.01 - Insomnia due to medical condition (8) Morbid obesity Current Visit: Yes Status: Chronic - Constitutional Vitals: Temp Pulse Resp BP Pulse Ox 97.6 F 77 16 139/70 93 06/29/17 11:48 06/29/17 11:48 06/29/17 11:48 06/29/17 11:48 06/29/17 11:48 Internal Medicine: Result - Labs CBC & Chem 7: 06/28/17 07:02 06/28/17 07:02 Labs: Urine 06/28/17 Range/Units 18:45 Urine Color Yellow (Yellow) Urine Clarity Clear (Clear) Urine pH 7.5 (5.0-8.0) pH Units Ur Specific [place] 1.011 (1.010-1.025) Urine Protein Negative (Neg-Trace) mg/dL Urine Glucose (UA) Normal (Normal) mg/dL - ABG Interpretation ABG results: PT/INR, D-dimer PT 11.8 Seconds (9.4-12.1) 06/23/17 15:10 - Attending Attestation I examined this patient and my medical decision-making was reviewed with the Resident Physician on 06/29/17. I agree with the documented findings, disposition and treatment plan as described except to the extent set forth below. Mr Monsivais is currently admitted for acute L hip fracture s/p ORIF. He is awaiting rehab. He remains moderate risk due to potential for worsening clinical status. Mr Monsivais is frustrated because he wants to get to rehab. His pain is controlled at this time. No fever or chills. Sleeping OK now. Exam Alert. Comfortable Mucus membranes dry Heart reg No wheeze Abd soft I/P 1. L hip fracture 2. MS Awaiting precert for rehab. Further diagnoses and plan as above.
[2017-06-29] MEDS: Acetaminophen 325 MG TABLET PO PRN (23:12)
[2017-06-30] MEDS: *HR* Enoxaparin 30 MG/0.3 ML SYRINGE SQ SCH (05:33)
[2017-06-30] MEDS: *HR* HYDROcodone/Acet 5/325 mg TABLET PO PRN ×2 (05:34→14:47)
[2017-06-30] MEDS: Celecoxib 200 MG CAPSULE PO SCH (08:48)
[2017-06-30] MEDS: Furosemide 20 MG TABLET PO PRN (08:49)
[2017-06-30] MEDS: *HR* Morphine 2 MG/ML SYRINGE IVP PRN (08:54)
[2017-06-30 08:58] VITALS: BP 121/80
--- NOTE | 2017-06-30 13:14 | Internal Med Progress Note ---
<Ramírez Rdz - Last Filed: 06/30/17 13:12> Date of Encounter: 06/30/17 Time of Encounter: 09:30 - Assessment and plan (1) Closed left hip fracture Current Visit: Yes Status: Acute Assessment and plan: No new acute issues. Awaiting precert for rehab, waiting for approval for [place]. 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 Qualifiers: Encounter type: subsequent encounter Fracture healing: with routine healing Qualified Code(s): S72.002D - Fracture of unspecified part of neck of left femur, subsequent encounter for closed fracture with routine healing (2) HTN (hypertension) Current Visit: Yes Status: Chronic Assessment and plan: Controlled. Patient's home medication includes metoprolol 50 mg by mouth twice a day, continue this inpatient. Qualifiers: Hypertension type: essential hypertension Qualified Code(s): I10 - Essential (primary) hypertension (3) Multiple sclerosis Current Visit: Yes Status: Chronic Assessment and plan: Patient has a history of MS, resulting in difficulty with walking and wheelchair -bound. Patient denies any recent flares. (4) Fall Current Visit: Yes Status: Acute Assessment and plan: Left fracture S/P mechanical fall while attempting to transfer from wheelchair to electric chair. Qualifiers: Encounter type: initial encounter Qualified Code(s): W19.XXXA - Unspecified fall, initial encounter (5) Urinary retention Current Visit: Yes Status: Acute Assessment and plan: Resolved. Likely secondary to catheter placement. - Continue to hold oxybutynin (6) Insomnia Current Visit: No Status: Acute Assessment and plan: Patient has by mouth and Ambien 5 mg daily at bedtime. Qualifiers: Insomnia type: due to medical condition Qualified Code(s): G47.01 - Insomnia due to medical condition (7) DVT prophylaxis Current Visit: Yes Status: Acute Assessment and plan: Subcutaneous heparin - Subjective Interval history: Mr. Monsivais 62-year-old male seen in the patient bedside as morning. He is in stable condition with no acute changes overnight. He is awaiting placement for short-term rehabilitation, potentially in [place]. He is voiding appropriately, denies any further urinary retention. - Constitutional Vitals: Temp Pulse Resp BP Pulse Ox 97.5 F L 89 16 121/80 95 06/30/17 08:55 06/30/17 08:55 06/30/17 08:55 06/30/17 08:55 06/30/17 09:06 General appearance: Present: cooperative, A&O X 3, answers questions appropriately Exam: General: Patient alert, awake, oriented 3, interactive, in no acute distress HEENT: Normocephalic, atraumatic, pupils equal reactive to light, nasal cavity patent and open septum median position, oral mucosa moist, uvula midline, neck supple trachea midline no palpable lymphadenopathy, no thyromegaly. Chest: Symmetric bilateral correlating with respiratory effort, effort nonlabored. Cardiac: Regular rate and rhythm, positive S1 and S2. no bruits appreciated bilateral carotids, Radial pulses 2+ bilateral, posterior tibial and dorsal pedal pulses 2+ bilateral. Respiratory: Clear to auscultation all lung wilson Abdomen: Soft, nontender, positive bowel sounds, no palpable masses appreciated on examination Extremities: Bilateral dependent edema, bilateral lower extremities symmetric, Neurovascular intact Neurologic: No focal deficits appreciated on examination. Face symmetric, muscle strength symmetric bilateral upper and lower extremities. Internal Medicine: Result - Labs CBC & Chem 7: 06/28/17 07:02 06/28/17 07:02 - ABG Interpretation ABG results: PT/INR, D-dimer PT 11.8 Seconds (9.4-12.1) 06/23/17 15:10 - VTE Documentation of Mechanical Device: Venous foot pump, device Consult Discharge Plan - Plan Additional Instructions: RESIDENTIAL DISCHARGE INSTRUCTIONS Dr. Garcia PROCEDURE PERFORMED Reduction and fixation of left hip. Incision care -Daily dressing changes to the left hip with dry gauze and either paper tape or medipore tape. -Avoid soaking wound in water (no hot tubs, bathtubs, swimming pools). -May shower after 2 weeks from surgery date. Carefully wash incision with soap and water. Gently pat it dry. Don't rub the incision, or apply creams or lotions. Sit on a shower stool when showering to keep from falling. Weight bearing status -Weightbearing as tolerated to the bilateral lower extremities. Medications -Pain medication per the discharging medical doctor -Lovenox 30 mg sq every 12 hours for DVT prophylaxis x 28 days from day of surgery. Other -Knee high MIKEL hose 23 hours per day -Consult physical and occupational therapy for mobilization. -Up to chair with assistance at least twice per day. -Follow up with your primary care physician to discuss testing for bone mineral density. Follow-up with Dr. Garcia at the office 2 weeks from the surgery date for a post operative evaluation. Call the office at [phone] to schedule appointment. Referrals: Bhavana Rodriguez, MOBILE MARKETING SPECIALIST [Primary Care Provider] - Prescriptions: HYDROcodone/Acet 5/325 mg [Randolph 5-325 mg] 1 tab PO Q4HR PRN #12 tablet PRN Reason: Moderate Pain (4-6) <Danis Lucio - Last Filed: 06/30/17 16:55> Date of Encounter: 06/30/17 - Assessment and plan (1) Anemia Current Visit: Yes Status: Acute Qualifiers: Anemia type: other cause Other causes of anemia: acute posthemorrhagic Qualified Code(s): D62 - Acute posthemorrhagic anemia (2) Closed left hip fracture Current Visit: Yes Status: Acute Qualifiers: Encounter type: subsequent encounter Fracture healing: with routine healing Qualified Code(s): S72.002D - Fracture of unspecified part of neck of left femur, subsequent encounter for closed fracture with routine healing (3) HTN (hypertension) Current Visit: Yes Status: Chronic Qualifiers: Hypertension type: essential hypertension Qualified Code(s): I10 - Essential (primary) hypertension (4) Multiple sclerosis Current Visit: Yes Status: Chronic (5) Urinary retention Current Visit: Yes Status: Acute (6) Hyperlipidemia Current Visit: No Status: Chronic Qualifiers: Hyperlipidemia type: mixed hyperlipidemia Qualified Code(s): E78.2 - Mixed hyperlipidemia (7) Insomnia Current Visit: No Status: Acute Qualifiers: Insomnia type: due to medical condition Qualified Code(s): G47.01 - Insomnia due to medical condition (8) Morbid obesity Current Visit: Yes Status: Chronic - Constitutional Vitals: Temp Pulse Resp BP Pulse Ox 97.5 F L 89 16 121/80 95 06/30/17 08:55 06/30/17 08:55 06/30/17 08:55 06/30/17 08:55 06/30/17 09:06 Internal Medicine: Result - Labs CBC & Chem 7: 06/28/17 07:02 06/28/17 07:02 - ABG Interpretation ABG results: PT/INR, D-dimer PT 11.8 Seconds (9.4-12.1) 06/23/17 15:10 - Attending Attestation Please see discharge summary of this date.
--- NOTE | 2017-06-30 15:35 | Discharge Summary ---
<Ramírez Rdz - Last Filed: 06/30/17 15:37> Date of Encounter: 06/30/17 Time of Encounter: 15:32 - Discharge Diagnosis (1) Closed left hip fracture Priority: Primary Status: Acute Qualifiers: Encounter type: subsequent encounter Fracture healing: with routine healing Qualified Code(s): S72.002D - Fracture of unspecified part of neck of left femur, subsequent encounter for closed fracture with routine healing (2) HTN (hypertension) Priority: Secondary Status: Chronic Qualifiers: Hypertension type: essential hypertension Qualified Code(s): I10 - Essential (primary) hypertension (3) Multiple sclerosis Priority: Secondary Status: Chronic (4) Fall Priority: Primary Status: Acute Qualifiers: Encounter type: initial encounter Qualified Code(s): W19.XXXA - Unspecified fall, initial encounter (5) Urinary retention Priority: Secondary Status: Acute (6) Insomnia Priority: Primary Status: Acute Qualifiers: Insomnia type: due to medical condition Qualified Code(s): G47.01 - Insomnia due to medical condition (7) DVT prophylaxis Priority: Secondary Status: Acute - Discharge Medications Prescriptions: HYDROcodone/Acet 5/325 mg [Peterson 5-325 mg] 1 tab PO Q4HR PRN #12 tablet PRN Reason: Moderate Pain (4-6) Home Medications: Baclofen 20 mg PO BID 05/08/16 [History] Celecoxib [Celebrex] 200 mg PO BID 05/08/16 [History] Furosemide [Lasix] 20 mg PO DAILY PRN 05/08/16 [History] Metoprolol [Lopressor] 50 mg PO BID 05/08/16 [History] Potassium Chloride [Klor-Con Sprinkle] 10 meq PO DAILY PRN 05/08/16 [History] Pravastatin Sodium [Pravachol] 40 mg PO HS 05/08/16 [History] Sertraline [Zoloft] 50 mg PO BID 05/08/16 [History] Solifenacin Succinate [Vesicare] 5 mg PO DAILY 05/08/16 [History] Tamsulosin [Flomax] 0.4 mg PO DAILY 05/08/16 [History] traMADol [Ultram] 50 - 100 mg PO TID PRN 05/08/16 [History] Propafenone [Rhythmol] 225 mg PO TID #90 tablet 05/22/17 [Rx] HYDROcodone/Acet 5/325 mg [Peterson 5-325 mg] 1 tab PO Q4HR PRN #12 tablet [Rx] Allergies/Adverse Reactions: 3 Allergy/AdvReac Type Severity Reaction Status Date / Time No Known Allergies Allergy Verified 05/10/17 15:24 Date of admission: 06/22/17 13:07 Primary care physician: Bhavana Rodriguez CNP Consults: 06/22/17 15:53 Consult to Rubber Tubing Backer [CONS] Routine Reason for SW Consult: pt has PT, will need it cont on D/C 06/22/17 18:32 Consult to Cardiology [CONS] Routine Comment: Consulting Provider: Cardiology Adamaris Reason for Consult: Surgical clearance. Reflexes including HLD, HTN, SVT with ablation 2 weeks ago Time Notified: 18:33 Call Completed: Yes 06/24/17 17:38 Consult to Occupational Therapy [CONS] Routine Comment: Evaluate, develop and implement POC Reason for Consult: post hip surgery Consult to Orthopedic Navigator [CONS] [CONS] Routine Consult to Physical Therapy [CONS] Routine Comment: Evaluate, develop and implement POC Reason for Consult: post hip surgery Consult to Rubber Tubing Backer [CONS] Routine Reason for SW Consult: post -op hip fracture Discharging clinician: Ramírez Rdz Anticipated date of discharge: 06/30/17 - Patient Status Disposition: Transfer SNF Condition: Good Functional capacity at discharge: wheelchair bound Overall status at discharge: patient is progressing back to baseline - Discharge Instructions Follow Up With: Bhavana Rodriguez CNP [Primary Care Provider] - Additional Instructions: NURSING HOME DISCHARGE INSTRUCTIONS Dr. Garcia PROCEDURE PERFORMED Reduction and fixation of left hip. Incision care -Daily dressing changes to the left hip with dry gauze and either paper tape or medipore tape. -Avoid soaking wound in water (no hot tubs, bathtubs, swimming pools). -May shower after 2 weeks from surgery date. Carefully wash incision with soap and water. Gently pat it dry. Don't rub the incision, or apply creams or lotions. Sit on a shower stool when showering to keep from falling. Weight bearing status -Weightbearing as tolerated to the bilateral lower extremities. Medications -Pain medication per the discharging medical doctor -Lovenox 30 mg sq every 12 hours for DVT prophylaxis x 28 days from day of surgery. Other -Knee high MIKEL hose 23 hours per day -Consult physical and occupational therapy for mobilization. -Up to chair with assistance at least twice per day. -Follow up with your primary care physician to discuss testing for bone mineral density. Follow-up with Dr. Garcia at the office 2 weeks from the surgery date for a post operative evaluation. Call the office at [phone] to schedule appointment. - Diet and Activity Activity: as per physical therapy Diet: advance to your usual diet Interval History: Mr. Monsivais is a 62 year old male with PMH of HRT, HTN, SVT and multiple sclerosis. He presents to the emergency department with pain in his left hip S/ P mechanical fall. After evaluation in the emergency department he was found to have a left hip fracture that required surgical intervention. He was admitted to the general medical floor, orthopedic surgery was consult after evaluation recommended internal fixation of his left hip to stabilize the proximal femur and provide pain control and reduce risk of displacement. He was kept nothing by mouth for his procedure and given his recent medical history was evaluated by radiology who identified inverted T waves that were present 6 months prior. Prior to clearance for his intervention he underwent LHC and did not require any stents at that time. He underwent orthopedic intervention on 06/24/2017 which was uncomplicated. Postoperatively his pain was controlled he demonstrated improvement. He did have urinary retention secondary to Kee removal for which she has oxybutynin was held at that time. After 24 hours of straight catheter and focus bladder training he regained ability to void appropriately. During the remainder of his hospital stay he worked with physical therapy and awaited short-term rehabilitation placement. On 06/30/2017 is seen and evaluated patient bedside deems stable for discharge to short-term rehabilitation for which she was accepted at an SNF in [place]. Hospital course: Mr. Monsivais is a 62 year old male - Time Spent with Patient Total time spent providing and/or coordinating discharge services: - Constitutional Vitals: Temp Pulse Resp BP Pulse Ox 97.5 F L 89 16 121/80 95 06/30/17 08:55 06/30/17 08:55 06/30/17 08:55 06/30/17 08:55 06/30/17 09:06 General appearance: Present: cooperative, A&O X 3, answers questions appropriately Exam: General: Patient alert, awake, oriented 3, interactive, in no acute distress HEENT: Normocephalic, atraumatic, pupils equal reactive to light, nasal cavity patent and open septum median position, oral mucosa moist, uvula midline, neck supple trachea midline no palpable lymphadenopathy, no thyromegaly. Chest: Symmetric bilateral correlating with respiratory effort, effort nonlabored. Cardiac: Regular rate and rhythm, positive S1 and S2. no bruits appreciated bilateral carotids, Radial pulses 2+ bilateral, posterior tibial and dorsal pedal pulses 2+ bilateral. Respiratory: Clear to auscultation all lung wilson Abdomen: Soft, nontender, positive bowel sounds, no palpable masses appreciated on examination Extremities: Bilateral dependent edema, bilateral lower extremities symmetric, Neurovascular intact Neurologic: No focal deficits appreciated on examination. Face symmetric, muscle strength symmetric bilateral upper and lower extremities. - VTE Documentation of Mechanical Device: Venous foot pump, device <Danis Lucio - Last Filed: 06/30/17 17:11> Date of Encounter: 06/30/17 - Discharge Diagnosis (1) Closed left hip fracture Status: Acute Qualifiers: Encounter type: subsequent encounter Fracture healing: with routine healing Qualified Code(s): S72.002D - Fracture of unspecified part of neck of left femur, subsequent encounter for closed fracture with routine healing (2) Anemia Priority: Secondary Status: Acute Qualifiers: Anemia type: other cause Other causes of anemia: acute posthemorrhagic Qualified Code(s): D62 - Acute posthemorrhagic anemia (3) HTN (hypertension) Status: Chronic Qualifiers: Hypertension type: essential hypertension Qualified Code(s): I10 - Essential (primary) hypertension (4) Multiple sclerosis Status: Chronic (5) Urinary retention Status: Resolved (6) Hyperlipidemia Priority: Secondary Status: Chronic Qualifiers: Hyperlipidemia type: mixed hyperlipidemia Qualified Code(s): E78.2 - Mixed hyperlipidemia (7) Insomnia Priority: Secondary Status: Acute Qualifiers: Insomnia type: due to medical condition Qualified Code(s): G47.01 - Insomnia due to medical condition (8) Morbid obesity Priority: Secondary Status: Chronic Date of admission: 06/22/17 13:07 Primary care physician: Bhavana Rodriguez CNP Consults: 06/22/17 15:53 Consult to Rubber Tubing Backer [CONS] Routine Reason for SW Consult: pt has PT, will need it cont on D/C 06/22/17 18:32 Consult to Cardiology [CONS] Routine Comment: Consulting Provider: Cardiology Adamaris Reason for Consult: Surgical clearance. Reflexes including HLD, HTN, SVT with ablation 2 weeks ago Time Notified: 18:33 Call Completed: Yes 06/24/17 17:38 Consult to Occupational Therapy [CONS] Routine Comment: Evaluate, develop and implement POC Reason for Consult: post hip surgery Consult to Orthopedic Navigator [CONS] [CONS] Routine Consult to Physical Therapy [CONS] Routine Comment: Evaluate, develop and implement POC Reason for Consult: post hip surgery Consult to Rubber Tubing Backer [CONS] Routine Reason for SW Consult: post -op hip fracture Hospital course: Mr. Monsivais is a 62 year old male - Time Spent with Patient Total time spent providing and/or coordinating discharge services: 38min - Constitutional Vitals: Temp Pulse Resp BP Pulse Ox 97.5 F L 89 16 121/80 95 06/30/17 08:55 06/30/17 08:55 06/30/17 08:55 06/30/17 08:55 06/30/17 09:06 - Attending Attestation I examined this patient and my medical decision-making was reviewed with the Resident Physician on 06/30/17. I agree with the documented findings, disposition and treatment plan as described except to the extent set forth below. Mr Monsivais has been admitted for acute L hip fracture and is s/p ORIF. He is afebrile with stable vitals. He has been accepted to SNF and is ready to be discharged today. Exam Alert. Comfortable Mucus membranes dry Heart reg No wheeze Abd soft Plan D/C to SNF today.
--- NOTE | 2017-06-30 15:37 | Physician Discharge Referral ---
ExtendedCare Referral Info Transfer To: SNF Provider in Charge after Transfer: PCP Institutional Level of Care: Skilled - Diagnosis (1) Closed left hip fracture Priority: Primary Status: Acute (2) HTN (hypertension) Priority: Secondary Status: Chronic (3) Multiple sclerosis Priority: Secondary Status: Chronic (4) Fall Priority: Primary Status: Acute (5) Urinary retention Priority: Secondary Status: Acute (6) Insomnia Priority: Secondary Status: Acute (7) DVT prophylaxis Priority: Secondary Status: Acute - Transfer Medications Prescriptions: HYDROcodone/Acet 5/325 mg [Whiting 5-325 mg] 1 tab PO Q4HR PRN #12 tablet PRN Reason: Moderate Pain (4-6) Home Medications: Baclofen 20 mg PO BID 05/08/16 [History] Celecoxib [Celebrex] 200 mg PO BID 05/08/16 [History] Furosemide [Lasix] 20 mg PO DAILY PRN 05/08/16 [History] Metoprolol [Lopressor] 50 mg PO BID 05/08/16 [History] Potassium Chloride [Klor-Con Sprinkle] 10 meq PO DAILY PRN 05/08/16 [History] Pravastatin Sodium [Pravachol] 40 mg PO HS 05/08/16 [History] Sertraline [Zoloft] 50 mg PO BID 05/08/16 [History] Solifenacin Succinate [Vesicare] 5 mg PO DAILY 05/08/16 [History] Tamsulosin [Flomax] 0.4 mg PO DAILY 05/08/16 [History] traMADol [Ultram] 50 - 100 mg PO TID PRN 05/08/16 [History] Propafenone [Rhythmol] 225 mg PO TID #90 tablet 05/22/17 [Rx] HYDROcodone/Acet 5/325 mg [Whiting 5-325 mg] 1 tab PO Q4HR PRN #12 tablet [Rx] Allergies/Adverse Reactions: 3 Allergy/AdvReac Type Severity Reaction Status Date / Time No Known Allergies Allergy Verified 05/10/17 15:24 - Respiratory Orders Smoking Cessation: Smoking cessation has been advised. For more information, call the [place] Tobacco Quit Line at 1-926-RCJY-NOW. - Ancillary Orders May use pressure relief devices daily prn, May consult with Dentist, Supervisor Asbestos Removal, Acid Polymerization Operator PRN - Advance Directives Living Will: No Power of Vulnerability Researcher: No Code Status: Full Code - Mobility Orders Ambulate - Rehabiliation Orders Rehab Potential: Good Rehab Orders: ROM Exercises, Evaluation for Physical Therapy, Evaluation for Occupational Therapy - Treatments Skin tear care topically daily PRN per policy, Fleet enema rectally every other day PRN cleansing purposes - Diet Orders Regular CERTIFICATION: I certify that the transfer of the above named patient to an Extended Care Facility is necessary for the continuing treatment of the diagnosis listed. The above information is true and accurate reflection of patient's current condition. Confidential - Redisclosure prohibited without a patient's written consent.
== END 2017-06-30 17:30 | DRG 481 ==
LOC: EMEROO 08:40 → SUATTDRO 13:07 → 3ANU 13:07 → 3NENU 22:59
PROVIDERS: ADMIT Internal Medicine; ATTEND Internal Medicine